=== PATIENT | male | born 1950 | race Hispanic/Latino ===

== ENCOUNTER 2019-01-24 18:39 | Emergency (ER) | payer MEDICARE ==
[2019-01-24 20:25] LABS: APPEARANCE,URINE Clear (CLEAR); BILIRUBIN,URINE Negative (NEGATIVE); COLOR,URINE Yellow (YELLOW); GLUCOSE, URINE (UA) >=1000 mg/dL (NEGATIVE); KETONES,URINE Negative (NEGATIVE); LEUKOCYTE ESTERASE ,URINE Negative (NEGATIVE); NITRATE,URINE Negative (NEGATIVE); OCCULT BLOOD,URINE Negative (NEGATIVE); PH,URINE 5.5 (5.0-8.0); PROTEIN,URINE Negative (NEGATIVE)
[2019-01-24 20:29] LABS: BASOPHILS % (AUTO) 0.7 % (0.0-5.0); EOSINOPHILS % (AUTO) 1.8 % (0.0-8.0); HEMATOCRIT 41.3 % (42-54); MEAN CORPUSCULAR VOLUME 93.9 fL (79-99); NEUTROPHILS % (AUTO) 49.5 % (40.0-77.0); PLATELET COUNT (AUTO) 201 K/uL (130-400); RED CELL DISTRIBUTION WIDTH 13.4 % (11.0-15.5); WHITE BLOOD COUNT (AUTO) 6.4 K/uL (4.8-10.8)
[2019-01-24 20:41] LABS: INR 0.91 (0.85-1.15); PARTIAL THROMBOPLASTIN TIME 24.1 SEC (26.3-35.5); PROTHROMBIN TIME 9.6 SEC (9.6-11.6)
[2019-01-24 20:45] LABS: POTASSIUM 4.3 mmol/L (3.5-5.1)
[2019-01-24 20:50] LABS: ALBUMIN 3.4 g/dL (3.5-5.0); BILIRUBIN,TOTAL 0.3 mg/dL (0.2-1.0)
== END 2019-01-24 21:31 | disposition home or self-care (01) ==
LOC: EDH 18:39
DX: S50.01XA Contusion of right elbow, initial encounter (principal); F07.81 Postconcussional syndrome; H11.31 Conjunctival hemorrhage, right eye; E11.65 Type 2 diabetes mellitus with hyperglycemia; I10 Essential (primary) hypertension; E78.5 Hyperlipidemia, unspecified; W01.198A Fall on same level from slipping, tripping and stumbling with subsequent striking against other object, initial encounter; Y93.89 Activity, other specified; Y92.89 Other specified places as the place of occurrence of the external cause; Y99.8 Other external cause status
CPT/HCPCS: 36415; 70450; 80053; 81003; 85025; 85610; 85730

== ENCOUNTER 2023-06-19 05:00 | Emergency (ER) | payer MEDICARE ==
[~2023-06-19] VITALS: Ht 167.6 cm; Wt 72.6 kg
[2023-06-19 05:34] LABS: BASOPHILS # (AUTO) 0.03 K/uL (0.00-0.20); BASOPHILS % (AUTO) 0.3 % (0.0-5.0); EOSINOPHILS # (AUTO) 0.01 K/uL (0.00-0.70); EOSINOPHILS % (AUTO) 0.1 % (0.0-8.0); HEMATOCRIT 48.1 % (42-54); IMMATURE GRANULOCYTE ABSOLUTE 0.04 K/uL (0-1); LYMPHOCYTES # (AUTO) 2.4 K/uL (1.0-4.8); LYMPHOCYTES % (AUTO) 21.7 % (21.0-51.0); MEAN CORPUSCULAR HEMOGLOBIN 31.7 pg (27.0-33.0); MEAN CORPUSCULAR HGB CONC 34.7 g/dL (32.0-36.0); MEAN CORPUSCULAR VOLUME 91.4 fL (79-99); MONOCYTES # (AUTO) 0.7 K/uL (0.1-1.0); NEUTROPHILS # (AUTO) 7.9 K/uL (1.8-7.7); NEUTROPHILS % (AUTO) 71.5 % (40.0-77.0); PLATELET COUNT (AUTO) 256 K/uL (130-400); RED BLOOD CELL COUNT(AUTO) 5.26 MIL/uL (4.50-6.20); RED CELL DISTRIBUTION WIDTH 13.3 % (11.0-15.5)
[2023-06-19 05:45] LABS: INR 3.11 (0.85-1.15); PROTHROMBIN TIME 33.5 SEC (9.6-11.6)
[2023-06-19 05:46] LABS: PARTIAL THROMBOPLASTIN TIME 41.6 SEC (26.3-35.5)
[2023-06-19] MEDS ORDERED: ONDANSETRON 4MG INJ IVP ONE (06:00)
[2023-06-19 06:29] LABS: ALBUMIN 3.7 g/dL (3.5-5.0); BILIRUBIN,TOTAL 0.4 mg/dL (0.2-1.0); CREATININE 0.8 mg/dL (0.5-1.5); POTASSIUM 3.8 mmol/L (3.5-5.1); TOTAL PROTEIN, SERUM 7.5 g/dL (6.0-8.3)
[2023-06-19] MEDS ORDERED: DICYCLOMINE HCL 10 MG/5 ML ML PO SCH (06:30)
[2023-06-19] MEDS ORDERED: LIDOCAINE HCL 2% VISCOUS 15 ML UDCUP PO ONE (06:30)
[2023-06-19] MEDS ORDERED: MAG/ALUM/SIMETH 30 ML UDCUP PO ONE (06:30)
[2023-06-19 10:38] VITALS: BP 151/67; PULSE 78; RESP 20; O2SAT 98
== END 2023-06-19 10:40 | disposition home or self-care (01) ==
LOC: EDH 05:00
DX: R06.02 Shortness of breath (principal); E11.9 Type 2 diabetes mellitus without complications; K21.9 Gastro-esophageal reflux disease without esophagitis; E78.00 Pure hypercholesterolemia, unspecified; I10 Essential (primary) hypertension
CPT/HCPCS: 99284; 96374; 71045; 84484 ×2; 80053; 85025; 85610; 85730; 36415; 93005 ×2; J2405

== ENCOUNTER 2024-04-25 12:38 | Emergency (ER) | payer MEDICARE ==
[~2024-04-25] VITALS: Ht 167.6 cm; Wt 77.1 kg
[2024-04-25 12:58] VITALS: BP 148/71; PULSE 74; RESP 16; TEMP 99; O2SAT 99
[2024-04-25 13:59] LABS: BASOPHILS # (AUTO) 0.06 K/uL (0.00-0.20); BASOPHILS % (AUTO) 0.7 % (0.0-5.0); EOSINOPHILS # (AUTO) 0.09 K/uL (0.00-0.70); EOSINOPHILS % (AUTO) 1.1 % (0.0-8.0); HEMATOCRIT 46.4 % (42-54); IMMATURE GRANULOCYTE ABSOLUTE 0.04 K/uL (0-1); LYMPHOCYTES # (AUTO) 2.3 K/uL (1.0-4.8); LYMPHOCYTES % (AUTO) 27.8 % (21.0-51.0); MEAN CORPUSCULAR HEMOGLOBIN 31.9 pg (27.0-33.0); MEAN CORPUSCULAR HGB CONC 34.7 g/dL (32.0-36.0); MEAN CORPUSCULAR VOLUME 91.9 fL (79-99); MONOCYTES # (AUTO) 0.6 K/uL (0.1-1.0); MONOCYTES % (AUTO) 7.2 % (3.0-13.0); NEUTROPHILS # (AUTO) 5.3 K/uL (1.8-7.7); NEUTROPHILS % (AUTO) 62.7 % (40.0-77.0); PLATELET COUNT (AUTO) 251 K/uL (130-400); RED BLOOD CELL COUNT(AUTO) 5.05 MIL/uL (4.50-6.20); RED CELL DISTRIBUTION WIDTH 12.3 % (11.0-15.5); WHITE BLOOD COUNT (AUTO) 8.4 K/uL (4.8-10.8)
[2024-04-25 14:31] LABS: CARBON DIOXIDE 27 mmol/L (21-32); CHLORIDE 100 mmol/L (101-111); CREATININE 0.9 mg/dL (0.5-1.3); GLOMERULAR FILTR. RATE CALC 90 mL/min (>90); GLUCOSE,RANDOM 297 mg/dL (70-105); SODIUM SERUM 134 mmol/L (136-145); UREA NITROGEN, BLOOD 13 mg/dL (7-18)
[2024-04-25 15:08] LABS: ERYTHROCYTE SEDIMENTATION RATE 0 MM/HR (0-20)
--- NOTE | 2024-04-25 15:17 | HMCIMG ---
TIBIA/FIBULA 2VWS RT REASON: ulceration to right lateral tib/fib r/o osteomyelitis TECHNIQUE: 2 views were obtained. FINDINGS: There is no evidence of fracture or dislocation. There is no joint effusion. The soft tissues appear unremarkable. There is no evidence of a radiopaque foreign body. IMPRESSION: No acute findings.
[2024-04-25] MEDS ORDERED: SULF1TAB42 PO (15:20)
--- NOTE | 2024-04-25 15:21 | ERN ---
General Chief Complaint: Wound Check Stated Complaint: RIGHT FOOT PAIN Time Seen by MD: 12:39 Time Seen by Midlevel: 12:39 Source: patient History of Present Illness Initial Comments Patient is a 74-year-old male with a past medical history of type 2 diabetes and hypertension presenting to the emergency department with an ulceration to the right lower leg. Patient states he was laceration hit her has been ongoing for the last six months. He specifically denies any fever, chills, or any other symptoms at this time. He is followed by Dr. Pandya however he was unaware that this ulceration is ongoing. Patient has no other complaints at this time. Allergies: Coded Allergies: No Known Drug Allergies (Unverified Allergy, Unknown, 01/24/19) Home Meds Active Scripts Sulfamethoxazole/Trimethoprim (Bactrim Ds Tablet) 800 Mg-160 Mg Tablet, 1 TAB PO BID for 7 Days, #14 TAB 0 Refills Prov:GURINDER MADDEN 04/25/24 Past Medical History Past Medical History: Diabetes-Type II, GERD, High Cholesterol, Hypertension Past Surgical History: Other Surgical History Other: NASAL FX Family History Family History: CAD, DM, HTN Social History Social History: Smokers, ETOH ROS Dictation CONSTITUTIONAL: Negative except for HPI HEAD/FACE: Negative except for HPI EENT: Negative except for HPI RESPIRATORY: Negative except for HPI GASTROINTESTINAL/ABDOMINAL: Negative except for HPI GENITOURINARY: Negative except for HPI MUSCULOSKELETAL: Negative except for HPI INTEGUMENTARY: Negative except for HPI NEUROLOGICAL/PSYCH: Negative except for HPI HEMATOLOGIC/LYMPHATIC: Negative except for HPI All Systems Negative, Except as noted above. 13 point review of systems assessed and all negative except for above. Physical Exam Physical Exam Dictation Vital Signs reviewed General Appearance: Alert, oriented x 3, no acute distress, well developed, nourished. Head and Face: non-traumatic. Eyes: PERRL, pink conjunctivas, eyelid no trauma, anterior chamber with arcus senilis. Ears: Pinnas intact and no signs of trauma or erythema ear canals clear and no discharge TM no erythema Nose: No discharge, no bleeding. Oropharynx: Mouth normal, tongue pink, pharynx clear,no erythema, tonsils no exudates, no abscesses noted, mucous membrane moist Neck: Supple, non-tender, no thyromegaly, no masses, no JVD, no bruits Breast:Deferred Chest:No tenderness, no crepitus, no paradoxical movement, no retractions Lungs:Clear, well-ventilated, symmetric, no rales, no wheezing, no rhonchi, no stridor, good breath sounds bilaterally Heart: Regular rate, regular rhythm, no murmur, no gallops Vascular: no peripheral edema, Abdomen: Soft, positive bowel sounds, nondistended, no guarding, nontender, no rebound, no masses no hepatomegaly, no splenomegaly, no Hayes's sign, no hernias. Rectal: Deferred Genital: Deferred Neurological: Normal speech, motor function intact, sensory function intact Musculoskeletal: Neck nontender, full range of motion, back nontender, full range of motion, Extremities: nontender, full range of motion Skin: There is a shallow ulceration to the lateral aspect of the right lower leg, there is no surrounding erythema or purulent drainage, there was no drainable abscess at this time Lymphatic: Deferred Results Laboratory and Microbiology Lab and Micro Result Laboratory Tests Test 04/25/24 13:52 White Blood Count 8.4 K/uL (4.8-10.8) Red Blood Count 5.05 MIL/uL (4.50-6.20) Hemoglobin 16.1 g/dL (14.0-18.0) Hematocrit 46.4 % (42-54) Mean Corpuscular Volume 91.9 fL (79-99) Mean Corpuscular Hemoglobin 31.9 pg (27.0-33.0) Mean Corpuscular Hemoglobin Concent 34.7 g/dL (32.0-36.0) Red Cell Distribution Width 12.3 % (11.0-15.5) Platelet Count 251 K/uL (130-400) Mean Platelet Volume 10.8 fL (7.5-10.5) H Immature Granulocyte % (Auto) 0.5 % (0-1) Neutrophils (%) (Auto) 62.7 % (40.0-77.0) Lymphocytes (%) (Auto) 27.8 % (21.0-51.0) Monocytes (%) (Auto) 7.2 % (3.0-13.0) Eosinophils (%) (Auto) 1.1 % (0.0-8.0) Basophils (%) (Auto) 0.7 % (0.0-5.0) Neutrophils # (Auto) 5.3 K/uL (1.8-7.7) Lymphocytes # (Auto) 2.3 K/uL (1.0-4.8) Monocytes # (Auto) 0.6 K/uL (0.1-1.0) Eosinophils # (Auto) 0.09 K/uL (0.00-0.70) Basophils # (Auto) 0.06 K/uL (0.00-0.20) Absolute Immature Granulocyte (auto 0.04 K/uL (0-1) Nucleated Red Blood Cells 0.0 % (0.0-0.19) Erythrocyte Sedimentation Rate 0 MM/HR (0-20) Sodium Level 134 mmol/L (136-145) L Potassium Level 4.0 mmol/L (3.5-5.1) Chloride Level 100 mmol/L (101-111) L Carbon Dioxide Level 27 mmol/L (21-32) Blood Urea Nitrogen 13 mg/dL (7-18) Creatinine 0.9 mg/dL (0.5-1.3) Glomerular Filtration Rate Calc 90 mL/min (>90) Random Glucose 297 mg/dL (70-105) H Lactic Acid Level 3.3 mmol/L (0.8-2.5) H Total Calcium 8.9 mg/dL (8.5-10.1) C-Reactive Protein, Quantitative < 0.50 mg/L (0.5-3.0) L Procalcitonin < 0.05 ng/mL (0.05-0.5) L Labs Reviewed?: Yes MDM MDM: Patient is a 74-year-old male with a past medical history of type 2 diabetes and hypertension presenting to the emergency department with an ulceration to the right lower leg. Patient states he was laceration hit her has been ongoing for the last six months. He specifically denies any fever, chills, or any other symptoms at this time. He is followed by Dr. Pandya however he was unaware that this ulceration is ongoing. Patient has no other complaints at this time. On physical examination there is a shallow ulceration to the lateral aspect of the right lower leg, there is no surrounding erythema or purulent drainage, there was no drainable abscess at this time. Initial vital signs are stable. Patient is afebrile and nontoxic appearing. His CBC does not show any leukocytosis. His white blood cell count is normal at 8.4. His sed rate is 0. His chemistries are stable his lactic acid is slightly elevated at 3.3 however patient was given 1 L of IV fluids. His CRP is negative. His procalcitonin is negative. His x-ray does not show any evidence of osteomyelitis. This will be treated outpatient with antibiotics. Patient was given 1 g of Rocephin IV along with 1 L of IV fluids. He was sent home with a prescription for Bactrim. Differential diagnosis: Cellulitis, osteomyelitis, ulceration, PVD There are no social concerns with this patient. Prescription drug management Prescriptions will include: Bactrim Medical management and examination interpretation discussions were had by me with other qualified healthcare professionals as indicated for the patient's care. ED Course Orders Procedure Category Date Status Time Cbc With Differential LAB 04/25/24 Complete 13:36 Basic Metabolic Panel LAB 04/25/24 Complete 13:36 Lactic Acid LAB 04/25/24 Complete 13:36 Procalcitonin LAB 04/25/24 Complete 13:36 Erythrocyte LAB 04/25/24 Complete Sedimentation Rate 13:36 Crp Quantitative LAB 04/25/24 Complete 13:36 Tibia/Fibula 2vws Rt RAD 04/25/24 Resulted 13:36 0.9%Nacl 1000ml (Ns PHA 04/25/24 Complete 1000ml) 15:30 Vancomycin Protocol PHA 04/25/24 Complete (Vancomycin Protocol 15:30 Cefepime Hcl 1 Gm PHA 04/25/24 Complete Vial (Maxipime 1 Gm Vi 15:30 Ceftriaxone 1g Vial PHA 04/25/24 Complete (Rocephine 1g Inj) 15:30 Current Medications Medications (Trade) Dose Ordered Sig/Dorinda Route PRN Reason Start Time Stop Time Status Last Admin Dose Admin Cefepime HCl (MAXipime 1 GM vial) 1 gm Q12H IVPB 04/25/24 15:30 04/25/24 15:20 DC Ceftriaxone Sodium (ROCEphine 1G INJ) 1 gm ONCE ONCE IVPB 04/25/24 15:30 04/25/24 15:31 DC 04/25/24 15:57 Sodium Chloride 1,000 ml @ 0 mls/hr ONCE ONCE IV 04/25/24 15:30 04/25/24 15:31 DC 04/25/24 15:58 Vancomycin HCl (Vancomycin Protocol) 1 each AD IV 04/25/24 15:30 04/25/24 15:20 DC Vital Signs Date Time Temp Pulse Resp B/P (MAP) Pulse Ox O2 Delivery O2 Flow Rate FiO2 04/25/24 12:58 99.0 74 16 148/71 99 Room Air 0 04/25/24 12:58 99.0 74 16 148/71 99 Room Air* 0 21 DX & DISP Disposition: Discharge Departure Impression: Primary Impression: Ulcer of right lower leg Condition: Stable Scripts Sulfamethoxazole/Trimethoprim (Bactrim Ds Tablet) 800 Mg-160 Mg Tablet 1 TAB PO BID for 7 Days, #14 TAB 0 Refills Prov: GURINDER MADDEN 04/25/24 Referrals: ISABEL VENEGAS PA-C (PCP) KEREN PANDYA DPCarlotta Time of Disposition: 15:20 I have reviewed the case, and I agree with, Diagnosis and Plan I performed the substantive portion of the visit. I have reviewed and personally made and approve the management plan that is documented in the note by myself or the GEO. I acknowledge for responsibility for the patient's management plan. GURINDER MADDEN Apr 25, 2024 15:21 NANDA QUINONEZ DO Apr 27, 2024 11:34
[2024-04-25] MEDS ORDERED: ceFEPime HCL 1 GM VIAL IVPB SCH (15:30)
[2024-04-25] MEDS ORDERED: VANCOMYCIN PROTOCOL PER PHARMACY IV SCH (15:30)
[2024-04-25] MEDS: cefTRIAXone 1G VIAL IVPB ONE (15:57)
[2024-04-25] MEDS: 0.9%NACL 1000ML 1,000 ML IV ONE (15:58)
== END 2024-04-25 16:38 | disposition home or self-care (01) ==
LOC: EDH 12:38
DX: E11.622 Type 2 diabetes mellitus with other skin ulcer (principal); L97.819 Non-pressure chronic ulcer of other part of right lower leg with unspecified severity; E11.9 Type 2 diabetes mellitus without complications; E78.00 Pure hypercholesterolemia, unspecified; F17.200 Nicotine dependence, unspecified, uncomplicated; I10 Essential (primary) hypertension; K21.9 Gastro-esophageal reflux disease without esophagitis; Z98.890 Other specified postprocedural states
CPT/HCPCS: 99284; 96365; 80048; 85025; 85651; 83605; 86140; 36415; 73590; 84145; J7030; J0696

== ENCOUNTER 2024-10-18 15:51 | Inpatient (IN) | payer MEDICARE ==
[~2024-10-18] VITALS: Ht 167.6 cm; Wt 83.1 kg
[~2024-10-18 15:51] MED LIST: SULF1TAB42 PO
[2024-10-18 16:26] LABS: BASOPHILS # (AUTO) 0.06 K/uL (0.00-0.20); BASOPHILS % (AUTO) 0.6 % (0.0-5.0); EOSINOPHILS % (AUTO) 2.1 % (0.0-8.0); HEMATOCRIT 41.6 % (42-54); IMMATURE GRANULOCYTE ABSOLUTE 0.02 K/uL (0-1); LYMPHOCYTES # (AUTO) 2.3 K/uL (1.0-4.8); LYMPHOCYTES % (AUTO) 23.6 % (21.0-51.0); MEAN CORPUSCULAR HEMOGLOBIN 30.9 pg (27.0-33.0); MEAN CORPUSCULAR HGB CONC 32.9 g/dL (32.0-36.0); MEAN CORPUSCULAR VOLUME 93.9 fL (79-99); MONOCYTES # (AUTO) 0.8 K/uL (0.1-1.0); MONOCYTES % (AUTO) 7.8 % (3.0-13.0); NEUTROPHILS # (AUTO) 6.3 K/uL (1.8-7.7); NEUTROPHILS % (AUTO) 65.7 % (40.0-77.0); PLATELET COUNT (AUTO) 284 K/uL (130-400); RED BLOOD CELL COUNT(AUTO) 4.43 MIL/uL (4.50-6.20); RED CELL DISTRIBUTION WIDTH 12.6 % (11.0-15.5); WHITE BLOOD COUNT (AUTO) 9.6 K/uL (4.8-10.8)
[2024-10-18 16:39] LABS: CREATININE 1.1 mg/dL (0.5-1.3); POTASSIUM 4.2 mmol/L (3.5-5.1)
--- NOTE | 2024-10-18 16:40 | HMCIMG ---
TIBIA/FIBULA 2VWS LT HISTORY: Wound COMPARISON: None TECHNIQUE: 2 images of the left tibia and fibula were obtained. FINDINGS: There is no acute displaced fracture or dislocation. There is soft tissue swelling. Vascular calcifications are seen. Small calcaneal spur is seen. Evaluation for osteomyelitis is limited with radiographs. Degenerative changes are seen. IMPRESSION: 1. Findings as described above.
[2024-10-18 17:34] LABS: ERYTHROCYTE SEDIMENTATION RATE 17 MM/HR (0-20)
--- NOTE | 2024-10-18 17:56 | ERN ---
ED Note History of Present Illness Stated Complaint: WOUND LT LOER EXT Chief Complaint: Wound Check Time Seen by MD: 15:53 Time Seen by Midlevel: 15:58 Dictation: 74-year-old male with a history of hypertension and diabetes coming in with complaints of pain to the ulcer that he has not in his left calf. Patient states he has had this ulcer for one year has not ever taken antibiotics. States he also has a history of PAD and sees Dr. Greyson Will. Allergies: Coded Allergies: No Known Drug Allergies (Unverified Allergy, Unknown, 01/24/19) Home Meds Active Scripts Sulfamethoxazole/Trimethoprim (Bactrim Ds Tablet) 800 Mg-160 Mg Tablet, 1 TAB PO BID for 7 Days, #14 TAB 0 Refills Prov:GURINDER MADDEN 04/25/24 Past Medical History Past Medical History: Diabetes-Type II, GERD, High Cholesterol, Hypertension Additional Past Medical Hx: PVD Surgical History: Other Surgical History Other: BILAT LOWER EXT ANGIOGRAMS Family History: CAD, DM, HTN Social History: Smokers, ETOH Review of System Dictation Constitutional: Negative for fever,chills, and weight loss Eyes: Negative for injury, pain,redness, and discharge ENT: Negative for injury,pain or swelling Cardiovascular: Negative for chest pain, palpitations, and edema Respiratory: Negative for shortness of breath, cough, and wheezing, Abdomen/GI: Negative for abdominal pain, nausea, vomiting, diarrhea, and constipation Back: Negative for injury and pain : Negative for injury, bleeding and discharge MS/Extremity: Negative for injury and deformity Skin: Ulcer to the left calf Neuro: Negative for headache, weakness, numbness, tingling, and seizure Psych: Negative for suicide ideation, homicidal ideation, and hallucinations Review of Systems: was completed Initial Vital Sign VS Vital Signs Date Time Temp Pulse Resp B/P (MAP) Pulse Ox O2 Delivery O2 Flow Rate FiO2 10/18/24 15:52 97.9 78 18 111/58 98 Room Air 0 10/18/24 19:00 21 Physical Exam Dictation General: awake, alert, NAD Head/Face: Normocephalic, atraumatic Eyes: PERRL, EOMI, vision at baseline ENT: oral cavity clear, TMs clear, no signs of infection Neck: Trachea midline, supple, no nuchal rigidity Cardiovascular: RRR, normal S1/S2, No MRGs, no JVD Respiratory: CTAB, no respiratory distress, No rales or wheezes Abdomen: Soft, non-tender, non-distended, normal bowel sounds, no guarding or rebound. Skin: There is a diabetic ulcer to the left calf with irregular edges clear and pus-like discharge, some necrotic tissue. MS/Extremity: Pulses equal, no cyanosis, neurovascular intact, FROM Neuro: COAx4, GCS 15, strength 5/5, CN 2-12 intact, normal cerebellar exam, no rmal gait, Psych: Normal behavior, mood, and affect normal Results (Laboratory/Radiology) Laboratory/Radiology Laboratory Tests Test 10/18/24 16:18 White Blood Count 9.6 K/uL (4.8-10.8) Red Blood Count 4.43 MIL/uL (4.50-6.20) L Hemoglobin 13.7 g/dL (14.0-18.0) L Hematocrit 41.6 % (42-54) L Mean Corpuscular Volume 93.9 fL (79-99) Mean Corpuscular Hemoglobin 30.9 pg (27.0-33.0) Mean Corpuscular Hemoglobin Concent 32.9 g/dL (32.0-36.0) Red Cell Distribution Width 12.6 % (11.0-15.5) Platelet Count 284 K/uL (130-400) Mean Platelet Volume 10.4 fL (7.5-10.5) Immature Granulocyte % (Auto) 0.2 % (0-1) Neutrophils (%) (Auto) 65.7 % (40.0-77.0) Lymphocytes (%) (Auto) 23.6 % (21.0-51.0) Monocytes (%) (Auto) 7.8 % (3.0-13.0) Eosinophils (%) (Auto) 2.1 % (0.0-8.0) Basophils (%) (Auto) 0.6 % (0.0-5.0) Neutrophils # (Auto) 6.3 K/uL (1.8-7.7) Lymphocytes # (Auto) 2.3 K/uL (1.0-4.8) Monocytes # (Auto) 0.8 K/uL (0.1-1.0) Eosinophils # (Auto) 0.20 K/uL (0.00-0.70) Basophils # (Auto) 0.06 K/uL (0.00-0.20) Absolute Immature Granulocyte (auto 0.02 K/uL (0-1) Nucleated Red Blood Cells 0.0 % (0.0-0.19) Erythrocyte Sedimentation Rate 17 MM/HR (0-20) Sodium Level 139 mmol/L (136-145) Potassium Level 4.2 mmol/L (3.5-5.1) Chloride Level 103 mmol/L (101-111) Carbon Dioxide Level 29 mmol/L (21-32) Blood Urea Nitrogen 18 mg/dL (7-18) Creatinine 1.1 mg/dL (0.5-1.3) Glomerular Filtration Rate Calc 70 mL/min (>90) Random Glucose 281 mg/dL (70-105) H Lactic Acid Level 1.3 mmol/L (0.8-2.5) Total Calcium 9.1 mg/dL (8.5-10.1) Procalcitonin < 0.05 ng/mL (0.05-0.5) L Labs Reviewed?: Yes X-RAY Comment: [address] [id number] IMAGING REPORT Signed PATIENT: GENIE GONZALES MR#: [id number] : 1950 SEX: M AGE: 74 LOCATION: [facility] ORDER 1611 STATUS: REG REPORT#: [id number] SERVICE 1609 REASON: wound ORDERING PHYSICIAN: BONITA FIGUEROA NP PROCEDURE: TIBFIB LT - TIBIA/FIBULA 2VWS LT TIBIA/FIBULA 2VWS LT HISTORY: Wound COMPARISON: None TECHNIQUE: 2 images of the left tibia and fibula were obtained. FINDINGS: There is no acute displaced fracture or dislocation. There is soft tissue swelling. Vascular calcifications are seen. Small calcaneal spur is seen. Evaluation for osteomyelitis is limited with radiographs. Degenerative changes are seen. IMPRESSION: 1. Findings as described above. DICTATED BY: PRAKASH MACK MD DATE: 10/18/24 1637 ELECTRONICALLY SIGNED BY: PRAKASH MACK MD DATE: 10/18/24 1640 ED Course ED Course Orders Procedure Category Date Status Time Cbc With Differential LAB 10/18/24 Complete 16:09 Basic Metabolic Panel LAB 10/18/24 Complete 16:09 Blood Cult RADHA 10/18/24 In Process 16:09 Lactic Acid LAB 10/18/24 Complete 16:09 Procalcitonin LAB 10/18/24 Complete 16:09 Erythrocyte LAB 10/18/24 Complete Sedimentation Rate 16:09 Tibia/Fibula 2vws Lt RAD 10/18/24 Resulted 16:09 Vital Signs Date Time Temp Pulse Resp B/P (MAP) Pulse Ox O2 Delivery O2 Flow Rate FiO2 10/18/24 19:00 98.2 72 18 161/75 98 Room Air* 0 21 10/18/24 15:52 97.9 78 18 111/58 98 Room Air 0 Medical Decision Making MDM MDM: 4-year-old male with a history of hypertension and diabetes coming in with complaints of pain to the ulcer that he has not in his left calf. Patient states he has had this ulcer for one year has not ever taken antibiotics. States he also has a history of PAD and sees Dr. Greyson Will.White count shows no leukocytosis, mild normocytic anemia, hemoglobin is 13 hematocrit is 41. No thrombocytopenia. Normal ESR, procalcitonin, lactic levels. CBC shows hyperglycemia of 281. Normal kidney function. Patient complaining of severe pain to the left calf, patient will be admitted for nonhealing chronic calf ulcer this patient could benefit from IV antibiotics and or wound care.Spoke to Shari [employer]URITY SERVICES SPECIALIST for hospitalist team, ok to admit. Differential diagnosis: Nonhealing ulcer, sepsis, osteomyelitis Rationale: Tests considered and ordered secondary to shared decision making include: labs, ECG and radiology Previous outside records reviewed: Old ER visits. Risk of complication and/or morbidity or mortality of patient management: None Medications-Per medication reconciliation Need for hospitalization: Patient does meet criteria for hospitalization. Need for emergency major/minor surgery: No There are no social concerns with this patient. Prescription drug management Prescriptions will include symptomatic care Patient's prior external medical records from other ER visits were reviewed by me as indicated. Prior testing and results from previous visits were reviewed. Prior tests were taken into account with medical decision making and resource utilization, independent historian/historians were used to obtain complete medical history. I independently interpreted the test that were performed, results were reviewed by me and considered findings on radiology if ordered. Medical management and examination interpretation discussions were had by me with other qualified healthcare professionals as indicated for the patient's care. DX & DISP Disposition: Inpatient Decision to Admit Date: October 18, 2024 Decision to Admit Time: 19:30 Departure Impression: Primary Impression: Ulcer of right lower leg Condition: Stable Referrals: ISABEL VENEGAS PA-C (PCP) Time of Disposition: 19:30 I have reviewed the case, and I agree with, Diagnosis and Plan BONITA FIGUEROA NP October 18, 2024 17:55
[2024-10-18] MEDS ORDERED: MAGNESIUM 2GM PREMIX 50ML 50 ML IV PRN (20:00)
[2024-10-18] MEDS ORDERED: PoTASSium chl 10% ELIXIR 20MEQ 20 MEQ/15 ML UDCUP PO PRN (20:00)
[2024-10-18] MEDS ORDERED: VANCOMYCIN 1G/250ML KIT 250 ML IV SCH (20:00)
[2024-10-18] MEDS ORDERED: GLUCAGON 1MG KIT 1 MG ML IM PRN (20:00)
[2024-10-18] MEDS ORDERED: PoTASSium chloRIDE 20MEQ/100ML 100 ML IV PRN (20:00)
[2024-10-18] MEDS ORDERED: DEXTROSE 50%-WATER 50 ML DISP.SYRIN IV PRN (20:00)
[2024-10-18] MEDS ORDERED: acetaMINOPHEN 325 MG TAB PO PRN (20:00)
[2024-10-18] MEDS: ondanSETRON 4MG INJ IVP STA (20:04)
[2024-10-18] MEDS: morPHINE 2 MG SYG IVP STA (20:04)
[2024-10-18] MEDS: ZOSYN 3.375GM +NS 50ML IV STA (20:04)
[2024-10-18] MEDS: FAMOTIDINE 20MG TAB PO SCH (20:20)
--- NOTE | 2024-10-18 20:25 | HP ---
[facility] Date of Service: October 18, 2024 Time of Service: 20:01 PCP: Julia SAUCEDO HISTORY OF PRESENT ILLNESS: This is a 74 year old male with past medical history of PVD with PCI ,diabetes,hypertension ,GERD and hyperlipidemia who presents to the ED for complaints of severe pain to left leg ulcer and swelling and he noticed bloody drainage this afternoon so he decided to come to the ED for further evaluation.Patient reports that this wound started since November 2023 and is doing medihoney dressing everyday but patient has not taken antibiotic.Patient states he had a stent placed by on both lower legs on 08/14/2024. Seen and examined patient in the Ed awake,alert and coherent appears uncomfortable complaints of left leg pain 8/10 pain level.Patient denies,fever,chills,nausea,vomiting,chest pain,palpitation and shortness of breath. Vital signs temperature 98.2 heart rate 72 blood pressure 161/75 saturation 98% on room air. Labs: Hemoglobin 13, hematocrit 41, platelet count 284. Glucose 281 calcitonin less than 0 point 0 five. X-ray of the left leg result revealed there is no acute displaced fracture or dislocation. There is soft tissue swelling. Vascular calcifications are seen. Small calcaneal spur is seen. Evaluation for osteomyelitis is limited with radiographs. Degenerative changes are seen. While in the ER patient received Zosyn IV, morphine 2 mg IV and Zofran 4 mg IV. We will admit patient for further medical management. REVIEW OF SYSTEMS CONSTITUTIONAL: Denies fevers, chills, or night sweats. No unintentional weight loss reported. NEUROLOGICAL: Denies headache, amaurosis fugax, motor weakness, sensory deficit, vertigo/spinning sensation, gait abnormalities, or tremors. ENT: No hearing loss, otalgia, otorrhea, rhinitis, rhinorrhea, hoarseness, or so re throat. CARDIOVASCULAR: Denies any exertional angina, dyspnea on exertion, orthopnea, paroxysmal nocturnal dyspnea, palpitations, life-threatening arrhythmias, claudication. PULMONARY: Denies any shortness of breath, cough, phlegm/sputum, hemoptysis, pleuritic chest pain. SLEEP: Denies morning headaches, daytime somnolence or napping. Denies difficulty falling asleep, staying asleep, waking from sleep. Denies knowledge of snoring. GASTROINTESTINAL: Denies any type of dysphagia to either liquids or solids. Denies nausea, vomiting, pyrosis, early satiety, abdominal pain, diarrhea, constipation, or changes in stool consistency or caliber. Denies coffee-ground emesis, hematemesis, hematochezia, or melanotic stools. GENITOURINARY: Denies frequency, urgency, nocturia, hematuria or incontinence (Storage/Irritative symptoms.) Low urinary stream, straining to void, urinary intermittency or hesitancy, splitting of the voiding stream, terminal dribbling. ENDOCRINOLOGIC: Denies polyuria, polydipsia, polyphagia or heat/cold intolerances. HEMATOLOGIC: Denies thrombophilia/previous clots, or coagulopathy/bleeding disorders. ONCOLOGIC: Denies personal history of malignancy. DERMATOLOGIC: Denies rashes or pruritus. PSYCHIATRIC: Denies any suicidal or homicidal ideation. Denies hallucinations. PAST MEDICAL HISTORY: [ PVD, diabetes, hypertension, hyperlipidemia ] PAST SURGICAL HISTORY: [ Stent to bilateral lower extremities ] PAST SOCIAL HISTORY: [ Patient lives with . Patient denies alcohol tobacco and recreational drug use ] FAMILY HISTORY: [ Noncontributory ] Coded Allergies: No Known Drug Allergies (Unverified Allergy, Unknown, 01/24/19) PHYSICAL EXAM GENERAL APPEARANCE: The patient is awake, alert, and oriented, in no acute cardiopulmonary distress. NEUROLOGICAL: Cranial nerves II-XII grossly intact. Motor is 5/5 in bilateral upper and lower extremities proximal to distal. No sensory deficits. HEENT: Face is symmetric. Pupils are equal and reactive. Extraocular movements are intact. NECK: Supple. No JVD. No thyromegaly. No submental, submandibular, pre-/postauricular, occipital or supraclavicular lymphadenopathy. CHEST: Normal chest expansion. No Telemetry. LUNGS: Absence of any rales, rhonchi or any wheezing. CARDIOVASCULAR: Regular. S1 and S2 normal. No appreciable rubs, murmurs or gallops. ABDOMEN: Soft, nontender, and nondistended. There is no rebound, voluntary guarding, or rigidity. : Deferred. No Bonilla. EXTREMITIES: Non-edematous and not cyanotic. No clubbing. Good capillary refill. SKIN: Non healing wound ulcer to left leg Vital Sign (Last 24 Hours) 10/18/24 19:00 Temp 98.2 Pulse 72 Resp 18 B/P (MAP) 161/75 Pulse Ox 98 O2 Delivery Room Air* O2 Flow Rate 0 FiO2 21 LABS: Laboratory: Test 10/18/24 16:18 Range/Units White Blood Count 9.6 4.8-10.8 K/uL Red Blood Count 4.43 L 4.50-6.20 MIL/uL Hemoglobin 13.7 L 14.0-18.0 g/dL Hematocrit 41.6 L 42-54 % Mean Corpuscular Volume 93.9 79-99 fL Mean Corpuscular Hemoglobin 30.9 27.0-33.0 pg Mean Corpuscular Hemoglobin Concent 32.9 32.0-36.0 g/dL Red Cell Distribution Width 12.6 11.0-15.5 % Platelet Count 284 130-400 K/uL Mean Platelet Volume 10.4 7.5-10.5 fL Immature Granulocyte % (Auto) 0.2 0-1 % Neutrophils (%) (Auto) 65.7 40.0-77.0 % Lymphocytes (%) (Auto) 23.6 21.0-51.0 % Monocytes (%) (Auto) 7.8 3.0-13.0 % Eosinophils (%) (Auto) 2.1 0.0-8.0 % Basophils (%) (Auto) 0.6 0.0-5.0 % Neutrophils # (Auto) 6.3 1.8-7.7 K/uL Lymphocytes # (Auto) 2.3 1.0-4.8 K/uL Monocytes # (Auto) 0.8 0.1-1.0 K/uL Eosinophils # (Auto) 0.20 0.00-0.70 K/uL Basophils # (Auto) 0.06 0.00-0.20 K/uL Absolute Immature Granulocyte (auto 0.02 0-1 K/uL Nucleated Red Blood Cells 0.0 0.0-0.19 % Erythrocyte Sedimentation Rate 17 0-20 MM/HR Sodium Level 139 136-145 mmol/L Potassium Level 4.2 3.5-5.1 mmol/L Chloride Level 103 101-111 mmol/L Carbon Dioxide Level 29 21-32 mmol/L Blood Urea Nitrogen 18 7-18 mg/dL Creatinine 1.1 0.5-1.3 mg/dL Glomerular Filtration Rate Calc 70 >90 mL/min Random Glucose 281 H 70-105 mg/dL Lactic Acid Level 1.3 0.8-2.5 mmol/L Total Calcium 9.1 8.5-10.1 mg/dL Procalcitonin < 0.05 L 0.05-0.5 ng/mL Current Medications Medications (Trade) Dose Ordered Sig/Dorinda Route PRN Reason Start Time Stop Time Status Last Admin Dose Admin Morphine Sulfate (morPHINE 2MG SYG) 2 mg ONCE STAT IVP 10/18/24 19:33 10/18/24 19:38 DC Ondansetron HCl (zoFRAN 4MG INJ) 4 mg ONCE STAT IVP 10/18/24 19:33 10/18/24 19:38 DC Piperacillin Sod/ Tazobactam Sod (Zosyn 3.375gm+NS 50ml) 3.375 gm ONCE STAT IV 10/18/24 19:31 10/18/24 19:38 DC DIAGNOSTICS / RADIOLOGY: [ ] ASSESSMENT: 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 bid for GI prophylaxis We will replace electrolytes as needed per protocol We will start on insulin sliding scale AC & HS with hypoglycemia protocol We will add prn medication for fever,pain,cough ,nausea and vomiting We will reconcile home meds once medlist available We will obtain arterial Doppler to left lower extremity We will request venous Doppler to left lower extremity We will seek wound care management consultation We will seek Infectious Disease consultation for antibiotic stewardship We will request labs in am Further orders to follow depending on above results Case discussed with attending physician and came up with above treatment and plan of care. ADVANCED CARE PLANNING 1. Which of the following were discussed? Hospice Care - No Therapeutic options - Yes Advance Directives - No Other discussions - 2. Discussed with who? Patient and 3. Voluntary nature of this service was explained to the patient? Yes 4. Amount of time spent - _22 5. Reviewed by Physician? (if this service was performed by NPP) Yes Patient seen and examined by me. Agree with note by [facility] SPECIALIST SEE ADDITIONAL ORDERS PER CHART DISCUSSED WITH NURSING STAFF DIANA BLACK BOILER ERECTOR October 18, 2024 20:25
[2024-10-18] MEDS ORDERED: VANCOMYCIN PROTOCOL PER PHARMACY IV SCH (20:30)
--- NOTE | 2024-10-18 20:54 | HMCIMG ---
US VENOUS DOPPLER UNILATERAL HISTORY: Pain and swelling COMPARISON: None TECHNIQUE: Left lower extremity venous Doppler ultrasound study was performed. FINDINGS: The left common femoral, femoral, popliteal, and posterior tibial veins are visualized. Normal flow with augmentation and compressibilities are demonstrated. Left greater saphenous vein is patent. IMPRESSION: 1. No evidence of deep venous thrombosis is seen.
[2024-10-18] MEDS: VANCOMYCIN 2GM/500 ML BAG 500 ML IV ONE (21:33)
[2024-10-18] MEDS: INSULIN humuLIN R 100 UNIT/ML 3ML SQ SCH (21:37)
[2024-10-18 22:10] VITALS: BP 139/59; PULSE 74; RESP 20; TEMP 97.8
[2024-10-18] MEDS ORDERED: INSLAN SQ (23:12)
[2024-10-18] MEDS ORDERED: MVIT PO (23:12)
[2024-10-18] MEDS ORDERED: LOSA25TA41 PO (23:12)
[2024-10-18] MEDS ORDERED: HYDR12.54 PO (23:12)
[2024-10-18] MEDS ORDERED: CLOP75TA32 PO (23:12)
[2024-10-18] MEDS ORDERED: PRAV20TA4 PO (23:12)
[2024-10-18] MEDS ORDERED: DAPA10TA PO (23:12)
[2024-10-19] VITALS (7 sets, daily range): BP systolic 115–137; BP diastolic 59–70; PULSE 72–78; RESP 17–20; TEMP 97.8–98.2; O2SAT 96–97
[2024-10-19] MEDS: ondanSETRON 4MG INJ IV PRN (00:56)
[2024-10-19] MEDS: morPHINE 2 MG SYG IV PRN (00:57)
[2024-10-19] MEDS: ZOSYN 3.375GM+NS 50ML 50 ML IV SCH (04:09)
[2024-10-19] MEDS ORDERED: TYL2 PO (04:51)
[2024-10-19 04:58] LABS: BASOPHILS # (AUTO) 0.05 K/uL (0.00-0.20); BASOPHILS % (AUTO) 0.6 % (0.0-5.0); EOSINOPHILS # (AUTO) 0.22 K/uL (0.00-0.70); EOSINOPHILS % (AUTO) 2.5 % (0.0-8.0); HEMATOCRIT 38.1 % (42-54); IMMATURE GRANULOCYTE ABSOLUTE 0.03 K/uL (0-1); LYMPHOCYTES # (AUTO) 2.2 K/uL (1.0-4.8); MEAN CORPUSCULAR HEMOGLOBIN 31.3 pg (27.0-33.0); MEAN CORPUSCULAR HGB CONC 33.3 g/dL (32.0-36.0); MEAN CORPUSCULAR VOLUME 93.8 fL (79-99); MONOCYTES # (AUTO) 0.8 K/uL (0.1-1.0); MONOCYTES % (AUTO) 9.3 % (3.0-13.0); NEUTROPHILS # (AUTO) 5.5 K/uL (1.8-7.7); NEUTROPHILS % (AUTO) 62.3 % (40.0-77.0); PLATELET COUNT (AUTO) 273 K/uL (130-400); RED BLOOD CELL COUNT(AUTO) 4.06 MIL/uL (4.50-6.20); RED CELL DISTRIBUTION WIDTH 12.5 % (11.0-15.5); WHITE BLOOD COUNT (AUTO) 8.8 K/uL (4.8-10.8)
[2024-10-19 05:26] LABS: ALBUMIN 2.9 g/dL (3.5-5.0); BILIRUBIN,TOTAL 0.4 mg/dL (0.2-1.0); CREATININE 0.8 mg/dL (0.5-1.3); MAGNESIUM 2.1 mg/dL (1.80-2.40); POTASSIUM 3.9 mmol/L (3.5-5.1); TOTAL PROTEIN, SERUM 6.1 g/dL (6.0-8.3)
[2024-10-19 05:35] LABS: HEMOGLOBIN A1C 10.3 % (4.0-6.0)
[2024-10-19] MEDS: VANCOMYCIN 750MG VIAL IVPB SCH (08:26)
--- NOTE | 2024-10-19 09:58 | HMCIMG ---
US ARTERIAL UNILA LOW EXT DUPL HISTORY: Pain and swelling COMPARISON: None TECHNIQUE: Left lower extremity arterial Doppler ultrasound study was performed. FINDINGS: Abnormal monophasic arterial waveforms are seen in the left distal popliteal, left posterior tibial, anterior tibial and dorsalis pedal arteries with hyperemic flow. Normal triphasic and biphasic arterial waveforms are noted in the left common femoral, deep femoral, superficial femoral, and popliteal arteries. On the left, the peak systolic velocity of the common femoral artery is 123 cm/s, the proximal femoral artery is 164 cm/s, the mid femoral artery is 95 cm/s, the distal femoral artery is 63 cm/s, the proximal popliteal artery is 78 cm/s, the distal popliteal artery is 75 cm/s, the anterior tibial artery is 21 cm/s, the posterior tibial artery artery is 200 cm/s,and the dorsalis pedal artery is 17 cm/s. IMPRESSION: 1. Atherosclerotic disease. 2. Abnormal monophasic arterial waveforms are seen in the left distal popliteal, left posterior tibial, anterior tibial and dorsalis pedal arteries with hyperemic flow.
[2024-10-19] MEDS: acetaMINOPHEN WITH coDEINE 1 TAB TAB PO PRN (10:27)
--- NOTE | 2024-10-19 10:30 | NUR ---
DCP: HOME Pt currently lives with gisel Meehan in their home. Pt denied any insecurities with food, custodial, and/or utilities. Pt has a wheelchair that pt uses to ambulate. Pt has a provider that goes to his home to assist with ADLs, housekeeping and meals however could not recall how many hours or name of agency. PCP and RX needs are met at [facility]. At [place] pt will return home and family can assist with transportation. Addendum: 10/19/24 at 1032 by TRUE MARTINEZ SS Amended: Links added.
--- NOTE | 2024-10-19 15:05 | NUR ---
[facility] Consult: Patient assessed by wound healing team. See wound assessment. Assessment and recommendations provided to primary nurse. Education provided. Wound care done. Addendum: 10/20/24 at 0958 by ANAI SALOMON RN RN/ Amended: Links added.
--- NOTE | 2024-10-19 15:40 | PN ---
[facility] PROGRESS NOTE Date of Service: October 19, 2024 Time of Service: 14:35 SUBJECTIVE: This is a 74 year old male with past medical history of PVD with PCI ,diabetes,hypertension ,GERD and hyperlipidemia who presents to the ED for complaints of severe pain to left leg ulcer and swelling and he noticed bloody drainage this afternoon so he decided to come to the ED for further evaluati on.Patient reports that this wound started since November 2023 and is doing medihoney dressing everyday but patient has not taken antibiotic.Patient states he had a stent placed by on both lower legs on 08/14/2024. Seen and examined patient in the Ed awake,alert and coherent appears uncomfortable complaints of left leg pain 8/10 pain level.Patient denies,fever,chills,nausea,vomiting,chest pain,palpitation and shortness of breath. Vital signs temperature 98.2 heart rate 72 blood pressure 161/75 saturation 98% on room air. Labs: Hemoglobin 13, hematocrit 41, platelet count 284. Glucose 281 calcitonin less than 0 point 0 five. X-ray of the left leg result revealed there is no acute displaced fracture or dislocation. There is soft tissue swelling. Vascular calcifications are seen. Small calcaneal spur is seen. Evaluation for osteomyelitis is limited with radiographs. Degenerative changes are seen. While in the ER patient received Zosyn IV, morphine 2 mg IV and Zofran 4 mg IV. We will admit patient for further medical management. 10/19/24 The patient was seen and examined today morning. His daughter is at the bedside. He is complaining on and off ulcer pain. Clinically, the ulcer looks like pyoderma gangrenosum. We will check hepatitis panel. Patient may have associated IBD. Infectious disease recommending general surgery and hem & onc. wound culture results pending. Arterial US showed atherosclerotic disease, abnormal monophasic arterial wave for seen in the left distal popliteal, left posterior tibial, anterior tibial and dorsalis pedal arteries with hyperemic flow. REVIEW OF SYSTEMS CONSTITUTIONAL: Denies fevers, chills, or night sweats. No unintentional weight loss reported. NEUROLOGICAL: Denies headache, amaurosis fugax, motor weakness, sensory deficit, vertigo/spinning sensation, gait abnormalities, or tremors. ENT: No hearing loss, otalgia, otorrhea, rhinitis, rhinorrhea, hoarseness, or sore throat. CARDIOVASCULAR: Denies any exertional angina, dyspnea on exertion, orthopnea, paroxysmal nocturnal dyspnea, palpitations, life-threatening arrhythmias, claudication. PULMONARY: Denies any shortness of breath, cough, phlegm/sputum, hemoptysis, pleuritic chest pain. SLEEP: Denies morning headaches, daytime somnolence or napping. Denies difficulty falling asleep, staying asleep, waking from sleep. Denies knowledge of snoring. GASTROINTESTINAL: Denies any type of dysphagia to either liquids or solids. Denies nausea, vomiting, pyrosis, early satiety, abdominal pain, diarrhea, constipation, or changes in stool consistency or caliber. Denies coffee-ground emesis, hematemesis, hematochezia, or melanotic stools. GENITOURINARY: Denies frequency, urgency, nocturia, hematuria or incontinence (Storage/Irritative symptoms.) Low urinary stream, straining to void, urinary intermittency or hesitancy, splitting of the voiding stream, terminal dribbling. ENDOCRINOLOGIC: Denies polyuria, polydipsia, polyphagia or heat/cold intolerances. HEMATOLOGIC: Denies thrombophilia/previous clots, or coagulopathy/bleeding disorders. ONCOLOGIC: Denies personal history of malignancy. DERMATOLOGIC: Denies rashes or pruritus. PSYCHIATRIC: Denies any suicidal or homicidal ideation. Denies hallucinations. PHYSICAL EXAM GENERAL APPEARANCE: The patient is awake, alert, and oriented, in no acute cardiopulmonary distress. NEUROLOGICAL: Cranial nerves II-XII grossly intact. Motor is 5/5 in bilateral upper and lower extremities proximal to distal. No sensory deficits. HEENT: Face is symmetric. Pupils are equal and reactive. Extraocular movements are intact. NECK: Supple. No JVD. No thyromegaly. No submental, submandibular, pre- /postauricular, occipital or supraclavicular lymphadenopathy. CHEST: Normal chest expansion. No Telemetry. LUNGS: Absence of any rales, rhonchi or any wheezing. CARDIOVASCULAR: Regular. S1 and S2 normal. No appreciable rubs, murmurs or gallops. ABDOMEN: Soft, nontender, and nondistended. There is no rebound, voluntary gu arding, or rigidity. : Deferred. No Bonilla. EXTREMITIES: Non-edematous and not cyanotic. No clubbing. Good capillary refill. SKIN: Non healing wound ulcer to left leg Vital Signs (last 8hr) Date Time Temp Pulse Resp B/P (MAP) Pulse Ox O2 Delivery O2 Flow Rate FiO2 10/19/24 12:03 97.9 72 18 115/59 96 Room Air 10/19/24 08:17 96 Room Air* 0 21 10/19/24 07:58 97.9 78 17 135/70 96 Room Air LABS: Laboratory: Test 10/19/24 11:45 10/19/24 04:41 10/18/24 16:18 Range/Units Whole Blood Glucose 168 H 70-110 MG/DL White Blood Count 8.8 4.8-10.8 K/uL Red Blood Count 4.06 L 4.50-6.20 MIL/uL Hemoglobin 12.7 L 14.0-18.0 g/dL Hematocrit 38.1 L 42-54 % Mean Corpuscular Volume 93.8 79-99 fL Mean Corpuscular Hemoglobin 31.3 27.0-33.0 pg Mean Corpuscular Hemoglobin Concent 33.3 32.0-36.0 g/dL Red Cell Distribution Width 12.5 11.0-15.5 % Platelet Count 273 130-400 K/uL Mean Platelet Volume 10.3 7.5-10.5 fL Immature Granulocyte % (Auto) 0.3 0-1 % Neutrophils (%) (Auto) 62.3 40.0-77.0 % Lymphocytes (%) (Auto) 25.0 21.0-51.0 % Monocytes (%) (Auto) 9.3 3.0-13.0 % Eosinophils (%) (Auto) 2.5 0.0-8.0 % Basophils (%) (Auto) 0.6 0.0-5.0 % Neutrophils # (Auto) 5.5 1.8-7.7 K/uL Lymphocytes # (Auto) 2.2 1.0-4.8 K/uL Monocytes # (Auto) 0.8 0.1-1.0 K/uL Eosinophils # (Auto) 0.22 0.00-0.70 K/uL Basophils # (Auto) 0.05 0.00-0.20 K/uL Absolute Immature Granulocyte (auto 0.03 0-1 K/uL Nucleated Red Blood Cells 0.0 0.0-0.19 % Sodium Level 142 136-145 mmol/L Potassium Level 3.9 3.5-5.1 mmol/L Chloride Level 107 101-111 mmol/L Carbon Dioxide Level 29 21-32 mmol/L Blood Urea Nitrogen 17 7-18 mg/dL Creatinine 0.8 0.5-1.3 mg/dL Glomerular Filtration Rate Calc 93 >90 mL/min Random Glucose 128 #H 70-105 mg/dL Hemoglobin A1c 10.3 H 4.0-6.0 % Estimated Average Glucose (eAG) 249 H 70-126 mg/dL Total Calcium 8.3 L 8.5-10.1 mg/dL Magnesium Level 2.10 1.80-2.40 mg/dL Total Bilirubin 0.4 0.2-1.0 mg/dL Aspartate Amino Transf (AST/SGOT) 15 10-37 U/L Alanine Aminotransferase (ALT/SGPT) 15 12-78 U/L Alkaline Phosphatase 59 50-136 U/L Total Protein 6.1 6.0-8.3 g/dL Albumin 2.9 L 3.5-5.0 g/dL Erythrocyte Sedimentation Rate 17 0-20 MM/HR Lactic Acid Level 1.3 0.8-2.5 mmol/L Procalcitonin < 0.05 L 0.05-0.5 ng/mL Current Medications Medications (Trade) Dose Ordered Sig/Dorinda Route PRN Reason Start Time Stop Time Status Last Admin Dose Admin Acetaminophen (TYLenol 325MG TAB) 650 mg Q4H PRN PO MILD PAIN (1-3) 10/18/24 20:00 11/17/24 19:59 Acetaminophen (TYLenol 325MG TAB) 650 mg Q6H PRN PO TEMPERATURE GREATER THAN 101.5 10/18/24 20:00 11/17/24 19:59 Acetaminophen/ Codeine Phosphate (TYLenol-coDEINE TAB) 2 tab Q6H PRN PO SEVERE PAIN (7-10) 10/19/24 09:30 11/18/24 09:29 10/19/24 10:27 2 TAB Atorvastatin Calcium (LIPItor 10MG) 5 mg HS PO 10/19/24 21:00 11/18/24 20:59 Clopidogrel Bisulfate (plaVIX 75MG) 75 mg DAILY PO 10/20/24 09:00 11/19/24 08:59 Dextrose (D50w) 50 ml AD PRN IV HYPOGLYCEMIA PROTOCOL 5/21/25 20:00 11/17/24 19:59 Famotidine (Pepcid 20mg Tab) 20 mg BID PO 10/18/24 21:00 11/17/24 20:59 10/19/24 08:03 20 MG Glucagon (Glucagon 1mg Kit) 1 mg AD PRN IM HYPOGLYCEMIA PROTOCOL 10/18/24 20:00 11/17/24 19:59 Hydrochlorothiazide (hydroCHLOROthiazide 25MG) 12.5 mg DAILY PO 10/20/24 09:00 11/19/24 08:59 Insulin Human Regular (humuLIN R 100 UNIT/ML 3ML) INSULIN SLIDING SCAL... ACHS SQ 10/18/24 21:00 11/17/24 20:59 10/18/24 21:37 2 UNIT Losartan Potassium (CozAAR 25MG TAB) 25 mg DAILY PO 10/20/24 09:00 11/19/24 08:59 Magnesium Sulfate 50 ml @ 0 mls/hr PROTOCOL PRN IV OTHER [SEE ORDER COMMENTS] 10/18/24 20:00 11/17/24 19:59 Morphine Sulfate (morPHINE 2MG SYG) 2 mg ONCE STAT IVP 10/18/24 19:33 10/18/24 19:38 DC 10/18/24 20:04 2 MG Morphine Sulfate (morPHINE 2MG SYG) 2 mg Q4H PRN IV MODERATE PAIN (4-6) 10/18/24 20:00 10/25/24 19:59 10/19/24 08:32 2 MG Multivitamins Therapeutic (Multivitamin Tablet) 1 tab DAILY PO 10/20/24 09:00 11/19/24 08:59 Ondansetron HCl (zoFRAN 4MG INJ) 4 mg ONCE STAT IVP 10/18/24 19:33 10/18/24 19:38 DC 10/18/24 20:04 4 MG Ondansetron HCl (zoFRAN 4MG INJ) 4 mg Q6H PRN IV NAUSEA/VOMITING 10/18/24 20:00 11/17/24 19:59 10/19/24 00:56 4 MG Piperacillin Sod/ Tazobactam Sod 50 ml @ 12.5 mls/hr Q8H IV 10/19/24 04:00 10/29/24 03:59 10/19/24 13:33 12.5 MLS/HR Piperacillin Sod/ Tazobactam Sod (Zosyn 3.375gm+NS 50ml) 3.375 gm ONCE STAT IV 10/18/24 19:31 10/18/24 19:38 DC 10/18/24 20:04 3.375 GM Potassium Chloride 100 ml @ 100 mls/hr AD PRN IV POTASSIUM PROTOCOL 10/18/24 20:00 11/17/24 19:59 Potassium Chloride (K-Dur/Klor-Con 20meq) 20 meq AD PRN PO POTASSIUM PROTOCOL 10/18/24 20:00 11/17/24 19:59 Potassium Chloride (KCl 10% Elixir 20meq/15ml) 20 meq AD PRN PO POTASSIUM PROTOCOL 10/18/24 20:00 11/17/24 19:59 Vancomycin HCl 250 ml @ 125 mls/hr ONCE IV 10/18/24 20:00 10/18/24 20:20 DC Vancomycin HCl (Vancomycin 750mg) 750 mg Q12H IVPB 10/19/24 09:00 10/29/24 08:59 10/19/24 08:26 750 MG Vancomycin HCl (Vancomycin Protocol) 1 each AD IV 10/18/24 20:30 11/01/24 20:29 DIAGNOSTICS / RADIOLOGY: [address] [address] IMAGING REPORT Signed PATIENT: GENIE GONZALES MR#: [id number] : 1950 SEX: M AGE: 74 LOCATION: [facility] ORDER 1611 STATUS: REG ER REPORT#: [id number] SERVICE 1609 REASON: wound ORDERING PHYSICIAN: BONITA FIGUEROA NP PROCEDURE: TIBFIB LT - TIBIA/FIBULA 2VWS LT TIBIA/FIBULA 2VWS LT HISTORY: Wound COMPARISON: None TECHNIQUE: 2 images of the left tibia and fibula were obtained. FINDINGS: There is no acute displaced fracture or dislocation. There is soft tissue swelling. Vascular calcifications are seen. Small calcaneal spur is seen. Evaluation for osteomyelitis is limited with radiographs. Degenerative changes are seen. IMPRESSION: 1. Findings as described above. DICTATED BY: PRAKASH MACK MD DATE: 10/18/24 1637 ELECTRONICALLY SIGNED BY: PRAKASH MACK MD DATE: 10/18/[address] [facility] [address] [place] [id number] IMAGING REPORT Signed PATIENT: GENIE GONZALES MR#: [id number] : 1950 SEX: M AGE: 74 LOCATION: 3AH ORDER 08 STATUS: ADM IN [facility] REPORT#: [id number] SERVICE 04 REASON: pain and swelling to left lower extremity ORDERING PHYSICIAN: DIANA BLACK INTER FOLD ROLL CUTTER PROCEDURE: ART U LE - US ARTERIAL UNILA LOW EXT DUPL US ARTERIAL UNILA LOW EXT DUPL HISTORY: Pain and swelling COMPARISON: None TECHNIQUE: Left lower extremity arterial Doppler ultrasound study was performed. FINDINGS: Abnormal monophasic arterial waveforms are seen in the left distal popliteal, left posterior tibial, anterior tibial and dorsalis pedal arteries with hyperemic flow. Normal triphasic and biphasic arterial waveforms are noted in the left common femoral, deep femoral, superficial femoral, and popliteal arteries. On the left, the peak systolic velocity of the common femoral artery is 123 cm/s, the proximal femoral artery is 164 cm/s, the mid femoral artery is 95 cm/s, the distal femoral artery is 63 cm/s, the proximal popliteal artery is 78 cm/s, the distal popliteal artery is 75 cm/s, the anterior tibial artery is 21 cm/s, the posterior tibial artery artery is 200 cm/s,and the dorsalis pedal artery is 17 cm/s. IMPRESSION: 1. Atherosclerotic disease. 2. Abnormal monophasic arterial waveforms are seen in the left distal popliteal, left posterior tibial, anterior tibial and dorsalis pedal arteries with hyperemic flow. DICTATED BY: PRAKASH MACK MD DATE: 10/19/24 0953 ELECTRONICALLY SIGNED BY: PRAKASH MACK MD DATE: 10/19/[address] [facility] [address] [place] [id number] IMAGING REPORT Signed PATIENT: GENIE GONZALES MR#: [id number] : 1950 SEX: M AGE: 74 LOCATION: ED[facility] ORDER 08 STATUS: ADM IN REPORT#: [id number] SERVICE 04 REASON: pain and swelling to left lower extremity ORDERING PHYSICIAN: DIANA BLACK INTER [employer] ROLL CUTTER PROCEDURE: VENOUS UNI - US VENOUS DOPPLER UNILATERAL US VENOUS DOPPLER UNILATERAL HISTORY: Pain and swelling COMPARISON: None TECHNIQUE: Left lower extremity venous Doppler ultrasound study was performed. FINDINGS: The left common femoral, femoral, popliteal, and posterior tibial veins are visualized. Normal flow with augmentation and compressibilities are demonstrated. Left greater saphenous vein is patent. IMPRESSION: 1. No evidence of deep venous thrombosis is seen. 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 Continue on heart healthy and consistent carb diet Suspected Pyoderma Gangrenosum Clinically, the ulcer looks like pyoderma gangrenosum. We will obtain acute hepatitis panel. Infectious disease consult appreciated, who recommended to continue with IV Vancomycin. ID consulted General Surgery and Hematology. Diabetic leg ulcer with suspected infection and necrosis POA Wound management is consulted and pending evaluation. Continue IV vancomycin and IV zosyn. Pending wound culture results. History of PVD with PCI Continue Clopidogrel. Uncontrolled diabetes POA Continue glucose checks AC & HS. Follow insulin sliding scale with hypoglycemia protocol HbA1c is 10.3% on admission. We will start him on home dose insulin Lantus 24 U HS. Gabapentin 100 mg TID. Hypertension POA Continue home medication Losartan and hydrochlorothiazide. Hyperlipidemia POA Continue home medication Pravastatin 20 mg. Lovenox 30 mg SQ daily for DVT prophylaxis Famotidine 20 mg p.o. bid for GI prophylaxis PRN medication for fever,pain,cough ,nausea and vomiting ATTESTATION BY PHYSICIAN I have seen and examined the patient. I reviewed the documentation, medical decision making, and treatment plan as noted by the resident provider above. I agree with the findings and plan of care. Gurmeet Rivas MD, KRUPALI P MD October 19, 2024 15:40
[2024-10-19] MEDS: ENOXAPARIN SODIUM 30 MG/0.3 ML SQ SCH (16:46)
[2024-10-19] MEDS: HONEY 1 APPL/ML TUBE TP ONE (16:48)
--- NOTE | 2024-10-19 17:55 | CONS ---
CONSULT NOTE: This is a 74 year old male with past medical history of PVD with PCI ,diabetes,hypertension ,GERD and hyperlipidemia who presents to the ED for complaints of severe pain to left leg ulcer and swelling and he noticed bloody drainage this afternoon so he decided to come to the ED for further evaluation.Patient reports that this wound started since November 2023 and is doing medihoney dressing everyday but patient has not taken antibiotic.Patient states he had a stent placed by on both lower legs on 08/14/2024. Seen and examined patient in the Ed awake,alert and coherent appears uncomfor table complaints of left leg pain 8/10 pain level.Patient denies,fever,chills,nausea,vomiting,chest pain,palpitation and shortness of breath. Vital signs temperature 98.2 heart rate 72 blood pressure 161/75 saturation 98% on room air. Labs: Hemoglobin 13, hematocrit 41, platelet count 284. Glucose 281 calcitonin less than 0 point 0 five. X-ray of the left leg result revealed there is no acute displaced fracture or dislocation. There is soft tissue swelling. Vascular calcifications are seen. Small calcaneal spur is seen. Evaluation for osteomyelitis is limited with radiographs. Degenerative changes are seen. While in the ER patient received Zosyn IV, morphine 2 mg IV and Zofran 4 mg IV. We will admit patient for further medical management. REVIEW OF SYSTEMS CONSTITUTIONAL: Denies fevers, chills, or night sweats. No unintentional weight loss reported. NEUROLOGICAL: Denies headache, amaurosis fugax, motor weakness, sensory deficit, vertigo/spinning sensation, gait abnormalities, or tremors. ENT: No hearing loss, otalgia, otorrhea, rhinitis, rhinorrhea, hoarseness, or sore throat. CARDIOVASCULAR: Denies any exertional angina, dyspnea on exertion, orthopnea, paroxysmal nocturnal dyspnea, palpitations, life-threatening arrhythmias, claudication. PULMONARY: Denies any shortness of breath, cough, phlegm/sputum, hemoptysis, pleuritic chest pain. SLEEP: Denies morning headaches, daytime somnolence or napping. Denies difficulty falling asleep, staying asleep, waking from sleep. Denies knowledge of snoring. GASTROINTESTINAL: Denies any type of dysphagia to either liquids or solids. Denies nausea, vomiting, pyrosis, early satiety, abdominal pain, diarrhea, constipation, or changes in stool consistency or caliber. Denies coffee-ground emesis, hematemesis, hematochezia, or melanotic stools. GENITOURINARY: Denies frequency, urgency, nocturia, hematuria or incontinence (Storage/Irritative symptoms.) Low urinary stream, straining to void, urinary intermittency or hesitancy, splitting of the voiding stream, terminal dribbling. ENDOCRINOLOGIC: Denies polyuria, polydipsia, polyphagia or heat/cold intolerances. HEMATOLOGIC: Denies thrombophilia/previous clots, or coagulopathy/bleeding disorders. ONCOLOGIC: Denies personal history of malignancy. DERMATOLOGIC: Denies rashes or pruritus. PSYCHIATRIC: Denies any suicidal or homicidal ideation. Denies hallucinations. PAST MEDICAL HISTORY: [ PVD, diabetes, hypertension, hyperlipidemia ] PAST SURGICAL HISTORY: [ Stent to bilateral lower extremities ] PAST SOCIAL HISTORY: [ Patient lives with . Patient denies alcohol tobacco and recreational drug use ] FAMILY HISTORY: [ Noncontributory ] Coded Allergies: No Known Drug Allergies (Unverified Allergy, Unknown, 01/24/19) PHYSICAL EXAM GENERAL APPEARANCE: The patient is awake, alert, and oriented, in no acute cardiopulmonary distress. NEUROLOGICAL: Cranial nerves II-XII grossly intact. Motor is 5/5 in bilateral upper and lower extremities proximal to distal. No sensory deficits. HEENT: Face is symmetric. Pupils are equal and reactive. Extraocular movements are intact. NECK: Supple. No JVD. No thyromegaly. No submental, submandibular, pre- /postauricular, occipital or supraclavicular lymphadenopathy. CHEST: Normal chest expansion. No Telemetry. LUNGS: Absence of any rales, rhonchi or any wheezing. CARDIOVASCULAR: Regular. S1 and S2 normal. No appreciable rubs, murmurs or gallops. ABDOMEN: Soft, nontender, and nondistended. There is no rebound, voluntary g uarding, or rigidity. : Deferred. No Bonilla. EXTREMITIES: Non-edematous and not cyanotic. No clubbing. Good capillary refill. SKIN: Non healing wound ulcer to left leg Assessment 1. Leg ulcer most likely diabetic/ischemic versus. Pyoderma Gengerosum 2. Nonhealing wound ulcer to the left leg 3. Uncontrolled diabetes 4. Hypertension 5. Hyperlipidemia Plan 1. There is suspicious for Pyoderma Gengerosum patient was seen by surgery. There is need for debridement. Will follow-up with the result of pathology. If confirmed the diagnosis this patient could benefit from rituximab. 2. Continue antibiotic treatment as per infectious disease specialist 3. It seems this patient may be need antiplatelet treatment with aspirin and Plavix with the ulcer most likely is a due to arterial issueLAB RESULTS 10/19/24 16:20: Whole Blood Glucose 196H 10/19/24 04:41: White Blood Count 8.8, Red Blood Count 4.06L, Hemoglobin 12.7L, Hematocrit 38.1L, Mean Corpuscular Volume 93.8, Mean Corpuscular Hemoglobin 31.3, Mean Corpuscular Hemoglobin Concent 33.3, Red Cell Distribution Width 12.5, Platelet Count 273, Mean Platelet Volume 10.3, Immature Granulocyte % (Auto) 0.3, Neutrophils (%) (Auto) 62.3, Lymphocytes (%) (Auto) 25.0, Monocytes (%) (Auto) 9.3, Eosinophils (%) (Auto) 2.5, Basophils (%) (Auto) 0.6, Neutrophils # (Auto) 5.5, Lymphocytes # (Auto) 2.2, Monocytes # (Auto) 0.8, Eosinophils # (Auto) 0.22, Basophils # (Auto) 0.05, Absolute Immature Granulocyte (auto 0.03, Nucleated Red Blood Cells 0.0, Sodium Level 142, Potassium Level 3.9, Chloride Level 107, Carbon Dioxide Level 29, Blood Urea Nitrogen 17, Creatinine 0.8, Glomerular Filtration Rate Calc 93, Random Glucose 128#H, Hemoglobin A1c 10.3H, Estimated Average Glucose (eAG) 249H, Total Calcium 8.3L, Magnesium Level 2.10, Total Bilirubin 0.4, Aspartate Amino Transf (AST/SGOT) 15, Alanine Aminotransferase (ALT/SGPT) 15, Alkaline Phosphatase 59, Total Protein 6.1, Albumin 2.9L 10/18/24 16:18: Erythrocyte Sedimentation Rate 17, Lactic Acid Level 1.3, Procalcitonin < 0.05L Laboratory Tests Test 10/18/24 21:21 10/19/24 04:41 10/19/24 05:08 10/19/24 11:45 Whole Blood Glucose 178 MG/DL (70-110) H 125 MG/DL (70-110) H 168 MG/DL (70-110) H White Blood Count 8.8 K/uL (4.8-10.8) Red Blood Count 4.06 MIL/uL (4.50-6.20) L Hemoglobin 12.7 g/dL (14.0-18.0) L Hematocrit 38.1 % (42-54) L Mean Corpuscular Volume 93.8 fL (79-99) Mean Corpuscular Hemoglobin 31.3 pg (27.0-33.0) Mean Corpuscular Hemoglobin Concent 33.3 g/dL (32.0-36.0) Red Cell Distribution Width 12.5 % (11.0-15.5) Platelet Count 273 K/uL (130-400) Mean Platelet Volume 10.3 fL (7.5-10.5) Immature Granulocyte % (Auto) 0.3 % (0-1) Neutrophils (%) (Auto) 62.3 % (40.0-77.0) Lymphocytes (%) (Auto) 25.0 % (21.0-51.0) Monocytes (%) (Auto) 9.3 % (3.0-13.0) Eosinophils (%) (Auto) 2.5 % (0.0-8.0) Basophils (%) (Auto) 0.6 % (0.0-5.0) Neutrophils # (Auto) 5.5 K/uL (1.8-7.7) Lymphocytes # (Auto) 2.2 K/uL (1.0-4.8) Monocytes # (Auto) 0.8 K/uL (0.1-1.0) Eosinophils # (Auto) 0.22 K/uL (0.00-0.70) Basophils # (Auto) 0.05 K/uL (0.00-0.20) Absolute Immature Granulocyte (auto 0.03 K/uL (0-1) Nucleated Red Blood Cells 0.0 % (0.0-0.19) Sodium Level 142 mmol/L (136-145) Potassium Level 3.9 mmol/L (3.5-5.1) Chloride Level 107 mmol/L (101-111) Carbon Dioxide Level 29 mmol/L (21-32) Blood Urea Nitrogen 17 mg/dL (7-18) Creatinine 0.8 mg/dL (0.5-1.3) Glomerular Filtration Rate Calc 93 mL/min (>90) Random Glucose 128 mg/dL (70-105) #H Hemoglobin A1c 10.3 % (4.0-6.0) H Estimated Average Glucose (eAG) 249 mg/dL (70-126) H Total Calcium 8.3 mg/dL (8.5-10.1) L Magnesium Level 2.10 mg/dL (1.80-2.40) Total Bilirubin 0.4 mg/dL (0.2-1.0) Aspartate Amino Transf (AST/SGOT) 15 U/L (10-37) Alanine Aminotransferase (ALT/SGPT) 15 U/L (12-78) Alkaline Phosphatase 59 U/L (50-136) Total Protein 6.1 g/dL (6.0-8.3) Albumin 2.9 g/dL (3.5-5.0) L Test 10/19/24 16:20 Whole Blood Glucose 196 MG/DL (70-110) H KARTIK MALDONADO MD October 19, 2024 17:55
--- NOTE | 2024-10-19 18:20 | CONS ---
GENERAL SURGERY CONSULTATION NOTE DATE OF CONSULTATION: October 19, 2024 TIME OF CONSULTATION: 18:20 CONSULTING SERVICE: Derick Chavez MD REQUESTING PHYSICAIN: [ ] REASON FOR CONSULTATION: [ ] HISTORY OF PRESENT ILLNESS: [ ] PAST MEDICAL HISTORY: [ ] PAST SURGICAL HISTORY: [ ] FAMILY HISTORY: [ ] SOCIAL HISTORY: [ ] Current Medications Medications (Trade) Dose Ordered Sig/Dorinda Route Start Time Stop Time Status Last Admin Dose Admin Atorvastatin Calcium (LIPItor 10MG) 5 mg HS PO 10/19/24 21:00 11/18/24 20:59 Clopidogrel Bisulfate (plaVIX 75MG) 75 mg DAILY PO 10/20/24 09:00 11/19/24 08:59 Enoxaparin Sodium (Lovenox) 30 mg DAILY SQ 10/19/24 16:00 11/18/24 15:59 10/19/24 16:46 30 MG Famotidine (Pepcid 20mg Tab) 20 mg BID PO 10/18/24 21:00 11/17/24 20:59 10/19/24 08:03 20 MG Gabapentin (NEURontin 100 mg CAP) 100 mg TID PO 10/19/24 21:00 11/18/24 20:59 Hydrochlorothiazide (hydroCHLOROthiazide 25MG) 12.5 mg DAILY PO 10/20/24 09:00 11/19/24 08:59 Insulin Glargine (LANtus 100 UNITS/ML 10 ML VIAL) 20 units HS SQ 10/19/24 21:00 11/18/24 20:59 Insulin Human Regular (humuLIN R 100 UNIT/ML 3ML) INSULIN SLIDING SCAL... ACHS SQ 10/18/24 21:00 11/17/24 20:59 10/19/24 16:51 2 UNIT Leptospermum Honey (Medihoney) 1 appl DAILY TP 10/20/24 09:00 11/19/24 08:59 Losartan Potassium (CozAAR 25MG TAB) 25 mg DAILY PO 10/20/24 09:00 11/19/24 08:59 Morphine Sulfate (morPHINE 2MG SYG) 2 mg ONCE STAT IVP 10/18/24 19:33 10/18/24 19:38 DC 10/18/24 20:04 2 MG Multivitamins Therapeutic (Multivitamin Tablet) 1 tab DAILY PO 10/20/24 09:00 11/19/24 08:59 Ondansetron HCl (zoFRAN 4MG INJ) 4 mg ONCE STAT IVP 10/18/24 19:33 10/18/24 19:38 DC 10/18/24 20:04 4 MG Piperacillin Sod/ Tazobactam Sod 50 ml @ 12.5 mls/hr Q8H IV 10/19/24 04:00 10/29/24 03:59 10/19/24 13:33 12.5 MLS/HR Piperacillin Sod/ Tazobactam Sod (Zosyn 3.375gm+NS 50ml) 3.375 gm ONCE STAT IV 10/18/24 19:31 10/18/24 19:38 DC 10/18/24 20:04 3.375 GM Vancomycin HCl 250 ml @ 125 mls/hr ONCE IV 10/18/24 20:00 10/18/24 20:20 DC Vancomycin HCl (Vancomycin 750mg) 750 mg Q12H IVPB 10/19/24 09:00 10/29/24 08:59 10/19/24 08:26 750 MG Vancomycin HCl (Vancomycin Protocol) 1 each AD IV 10/18/24 20:30 11/01/24 20:29 Allergies: Coded Allergies: No Known Drug Allergies (Unverified Allergy, Unknown, 01/24/19) REVIEW OF SYSTEMS: 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 PHYSICAL EXAMINATION: GENERAL: [Patient is lying comfortably in bed, not in any obvious distress.] HEAD: [Normal with no signs of head trauma.] EYES: [Not pale not jaundiced afebrile to touch.] ENT: [ Normal.] NECK: [Supple,no tenderness,no lymphadenopathy,no masses,no thyromegaly ,no bruits, no JVD.] LUNGS: [Clear breath sounds bilaterally. No wheezes, rales, or rhonchi.] HEART: [Regular rate and rhythm. Normal S1 and S2, without murmurs, rub or gallop.] VASC: [No edema. Peripheral pulses normal and equal in all extremities.] ABD: [Bowel sounds present,soft, RUQ tender, no masses, no organomegaly.] : [Normal, no suprapubic tenderness.] LYMPH: [No lymphadenopathy noted.] EXT: [ Warm soft, non tender.] SKIN: [ No rashes or lesions.] NEURO: [ Awake Alert and oriented x3.] Vital Signs (last 8hr) Date Time Temp Pulse Resp B/P (MAP) Pulse Ox O2 Delivery O2 Flow Rate FiO2 10/19/24 16:00 97.9 72 18 137/63 96 Room Air 10/19/24 12:03 97.9 72 18 115/59 96 Room Air LABORATORY: [ ] Hematology Labs: Test 10/19/24 04:41 10/18/24 16:18 Range/Units White Blood Count 8.8 4.8-10.8 K/uL Red Blood Count 4.06 L 4.50-6.20 MIL/uL Hemoglobin 12.7 L 14.0-18.0 g/dL Hematocrit 38.1 L 42-54 % Mean Corpuscular Volume 93.8 79-99 fL Mean Corpuscular Hemoglobin 31.3 27.0-33.0 pg Mean Corpuscular Hemoglobin Concent 33.3 32.0-36.0 g/dL Red Cell Distribution Width 12.5 11.0-15.5 % Platelet Count 273 130-400 K/uL Mean Platelet Volume 10.3 7.5-10.5 fL Immature Granulocyte % (Auto) 0.3 0-1 % Neutrophils (%) (Auto) 62.3 40.0-77.0 % Lymphocytes (%) (Auto) 25.0 21.0-51.0 % Monocytes (%) (Auto) 9.3 3.0-13.0 % Eosinophils (%) (Auto) 2.5 0.0-8.0 % Basophils (%) (Auto) 0.6 0.0-5.0 % Neutrophils # (Auto) 5.5 1.8-7.7 K/uL Lymphocytes # (Auto) 2.2 1.0-4.8 K/uL Monocytes # (Auto) 0.8 0.1-1.0 K/uL Eosinophils # (Auto) 0.22 0.00-0.70 K/uL Basophils # (Auto) 0.05 0.00-0.20 K/uL Absolute Immature Granulocyte (auto 0.03 0-1 K/uL Nucleated Red Blood Cells 0.0 0.0-0.19 % Erythrocyte Sedimentation Rate 17 0-20 MM/HR Chemistry Labs: Test 10/19/24 16:20 10/19/24 04:41 10/18/24 16:18 Range/Units Whole Blood Glucose 196 H 70-110 MG/DL Sodium Level 142 136-145 mmol/L Potassium Level 3.9 3.5-5.1 mmol/L Chloride Level 107 101-111 mmol/L Carbon Dioxide Level 29 21-32 mmol/L Blood Urea Nitrogen 17 7-18 mg/dL Creatinine 0.8 0.5-1.3 mg/dL Glomerular Filtration Rate Calc 93 >90 mL/min Random Glucose 128 #H 70-105 mg/dL Hemoglobin A1c 10.3 H 4.0-6.0 % Estimated Average Glucose (eAG) 249 H 70-126 mg/dL Total Calcium 8.3 L 8.5-10.1 mg/dL Magnesium Level 2.10 1.80-2.40 mg/dL Total Bilirubin 0.4 0.2-1.0 mg/dL Aspartate Amino Transf (AST/SGOT) 15 10-37 U/L Alanine Aminotransferase (ALT/SGPT) 15 12-78 U/L Alkaline Phosphatase 59 50-136 U/L Total Protein 6.1 6.0-8.3 g/dL Albumin 2.9 L 3.5-5.0 g/dL Lactic Acid Level 1.3 0.8-2.5 mmol/L Procalcitonin < 0.05 L 0.05-0.5 ng/mL DIAGNOSTICS / RADIOLOGY: [Copy/Paste Echos/Imaging Report here] ASSESSMENT: [] PLAN: [] NPO/IVF/IV ANTIOBIOTICS Schedule for OR We talked about various treatment options including but not limited to surgery. We talked about risks and benefits of surgery, patient verbalized understanding has agreed to proceed [ ]. We will schedule [ ]. DERICK CHAVEZ MD October 19, 2024 18:20
[2024-10-19] MEDS: atorVAStatin 10 MG TABLET PO SCH (20:54)
[2024-10-19] MEDS: GABApentin 100 MG CAPSULE PO SCH (20:54)
[2024-10-19] MEDS: INSULIN GLARgine 100 UNITS/ML 10 ML VIAL SQ SCH (20:55)
[2024-10-20] VITALS (28 sets, daily range): BP systolic 111–157; BP diastolic 57–79; PULSE 73–96; RESP 16–20; TEMP 97.7–207.9; O2SAT 97–100
--- NOTE | 2024-10-20 03:34 | CONS ---
INFECTIOUS DISEASE CONSULTATION DATE OF SERVICE: 10/19/2024 REQUESTING PHYSICIAN: Candida Fierro NP REASON FOR CONSULTATION: Elder male with peripheral vascular disease, presented to the hospital with left leg pain, swelling and redness. The patient has chronic ulcer of the left leg, for which he has been treated with multiple antibiotics. The patient claims ulcer has started as a small blister, which has expanded. He has had the wound for about 10 months. Denies trauma or fall. No fever or chills. No cough. No hemoptysis or pleuritic pain. The patient has peripheral vascular disease, for which angiogram and stenting of both lower extremities had been done in the past. PAST MEDICAL HISTORY: * Peripheral vascular disease. * Diabetes mellitus. * Hypertension. * . * Dyslipidemia. * Left leg ulcer. PAST SURGICAL HISTORY: Angiogram and stenting of both lower extremities. ALLERGIES: No known drug allergies. CURRENT MEDICATIONS: Reviewed. SOCIAL HISTORY: No alcohol, tobacco or illicit drug use. FAMILY HISTORY: Positive for diabetes mellitus. REVIEW OF SYSTEMS: CONSTITUTIONAL: No fevers or chills. No weight loss or night sweats. EYES: No eye pain. No photophobia or diplopia. HENT: No sore throat. No rhinorrhea or earache. NECK: . RESPIRATORY: No cough. No hemoptysis or pleuritic pain. CARDIOVASCULAR: No chest pain, palpitations or orthopnea. GASTROINTESTINAL: No nausea, vomiting or abdominal pain. GENITOURINARY: No dysuria, urgency, or urinary frequency. CENTRAL NERVOUS SYSTEM: No headache, dyspnea, or slurred speech. PSYCHIATRY: No depression, no suicidal ideation. MUSCULOSKELETAL: Positive for left leg pain, swelling, and ulcer. SKIN: No rashes, no itching. PHYSICAL EXAMINATION: GENERAL: Elderly male, awake. VITAL SIGNS: Temperature 97.9, pulse of 70, respirations 17, BP 135/70. EYES: No icterus. Pupils are equal and reactive. HENT: No oral thrush seen. Moist oral mucosa. NECK: Supple. No JVD or thyromegaly. LUNGS: Good air entry. No rales, no rhonchi. CARDIOVASCULAR: S1 and S2 regular. No murmur heard. ABDOMEN: Full, soft, obese, nontender. Bowel sounds are present. CENTRAL NERVOUS SYSTEM: Awake, alert, oriented x 3. No focal deficits. SKIN: No rashes, no itchiness. LYMPHATIC: There is left inguinal lymphadenopathy. BACK: No deformity, no pressure ulcer. EXTREMITIES: Ulcer with necrosis involving the left lower extremity. There is some drainage. LABORATORY DATA: Sodium 143, potassium 3.9, BUN 17, creatinine 0.8. Procalcitonin negative. WBC 8.8, hemoglobin is 12.7, platelets 273. RADIOLOGY: X-ray of the tibia and fibula is unremarkable. pending. 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 * Left lower extremity cellulitis. * Diabetes mellitus. * Hypertension. * Peripheral vascular disease. PLAN: * The patient will need wound debridement and tissue biopsy for pathology. * The patient will need steroid. * Oncology evaluation for possible Rituximab. * Continue ADA diet. * Continue antidiabetic. * Continue wound care. * Continue pain management. * Continue nutritional support. * The patient will be followed up closely. Thank you for allowing me to participate in the care of this patient. TID: [id number] RECEIPT: [id number] [facility] HOSPITALAntoinette
[2024-10-20 04:33] LABS: HEPATITIS A IGM ANTIBODY Non-Reactive (Nonreactive); HEPATITIS B CORE IGM ANTIBODY Non-Reactive (Negative); HEPATITIS B SURFACE ANTIGEN Non-Reactive (Nonreactive); HEPATITIS C ANTIBODY Non-Reactive (Nonreactive)
[2024-10-20 04:47] LABS: BASOPHILS # (AUTO) 0.05 K/uL (0.00-0.20); BASOPHILS % (AUTO) 0.5 % (0.0-5.0); EOSINOPHILS # (AUTO) 0.19 K/uL (0.00-0.70); HEMATOCRIT 40.5 % (42-54); IMMATURE GRANULOCYTE ABSOLUTE 0.04 K/uL (0-1); LYMPHOCYTES # (AUTO) 2.2 K/uL (1.0-4.8); LYMPHOCYTES % (AUTO) 23.4 % (21.0-51.0); MEAN CORPUSCULAR HEMOGLOBIN 30.8 pg (27.0-33.0); MEAN CORPUSCULAR HGB CONC 33.1 g/dL (32.0-36.0); MEAN CORPUSCULAR VOLUME 93.1 fL (79-99); MONOCYTES # (AUTO) 0.7 K/uL (0.1-1.0); MONOCYTES % (AUTO) 7.6 % (3.0-13.0); NEUTROPHILS # (AUTO) 6.1 K/uL (1.8-7.7); NEUTROPHILS % (AUTO) 66.1 % (40.0-77.0); PLATELET COUNT (AUTO) 274 K/uL (130-400); RED BLOOD CELL COUNT(AUTO) 4.35 MIL/uL (4.50-6.20); RED CELL DISTRIBUTION WIDTH 12.3 % (11.0-15.5); WHITE BLOOD COUNT (AUTO) 9.3 K/uL (4.8-10.8)
[2024-10-20 05:10] LABS: CREATININE 0.9 mg/dL (0.5-1.3); MAGNESIUM 2.1 mg/dL (1.80-2.40); POTASSIUM 4.2 mmol/L (3.5-5.1)
[2024-10-20] MEDS: LoSARTan 25 MG TABLET PO SCH (07:25)
[2024-10-20] MEDS: hydroCHLOROthiazide 25 MG TABLET PO SCH (07:26)
[2024-10-20] MEDS: MULTIVITAMIN TABLET PO SCH (07:26)
[2024-10-20] MEDS: cloPIDOgrel 75MG TAB PO SCH (07:26)
--- NOTE | 2024-10-20 07:26 | NUR ---
AM PO MEDICATIONS NOT ADMINISTERED DUE TO PATIENT BEING NPO AND SCHEDULED FOR SURGERY TODAY.
--- NOTE | 2024-10-20 07:34 | NUR ---
SPOKE WITH NAEL, OR NURSE, REGARDING LOVENOX FOR PATIENT. PER RECOMMENDATION, WILL HOLD LOVENOX FOR SURGERY TODAY.
[2024-10-20] MEDS: HONEY 1 APPL/ML TUBE TP SCH (07:40)
[2024-10-20] MEDS ORDERED: rocuRONium bROMide 10MG/1ML 5ML VL ONE (08:42)
[2024-10-20] MEDS ORDERED: ondanSETRON 4MG INJ ONE (08:42)
[2024-10-20] MEDS ORDERED: FENTanyl CITRate PF 50 MCG/1 ML 2ML VIAL ONE ×2 (08:42→09:59)
[2024-10-20] MEDS ORDERED: MIDAZOLAM HCL 1 MG/ML 2ML VIAL ONE (08:42)
[2024-10-20] MEDS ORDERED: proPOFol 10 MG/ML 20ML VIAL IV ONE (08:43)
[2024-10-20] MEDS ORDERED: BUPIvacaine/PF 0.25% 30ML VIAL IJ ONE (09:11)
[2024-10-20] MEDS ORDERED: ceFAZolin SODIUM 1 GM VIAL ONE (09:11)
[2024-10-20] MEDS ORDERED: LIDOCAINE HCL 1% 20 ML VIAL ONE (09:11)
[2024-10-20] MEDS: ceFAZolin SODIUM 1 GM VIAL IRRIG ONE (09:45)
[2024-10-20] MEDS ORDERED: NEOSTIGMINE METHYLSULFATE 1MG/ML IV ONE (09:54)
[2024-10-20] MEDS ORDERED: GLYCOPYRROLATE 0.2 MG/ML 5 ML VIAL ONE (09:54)
--- NOTE | 2024-10-20 10:24 | OP ---
DATE OF PROCEDURE: 10/20/2024 PREOPERATIVE DIAGNOSIS: Nonhealing left leg wound. POSTOPERATIVE DIAGNOSIS: Nonhealing left leg wound. PROCEDURE PERFORMED: Debridement and drainage infected left leg wound, skin and fat biopsy, placement of wound VAC. SURGEON: Asia Chavez MD ANESTHESIA: General. ESTIMATED BLOOD LOSS: Minimal FINDINGS: Infected left leg wound. Wound measures about 12 x 12 cm. Debridement is excisional. It involves skin and necrotic fat. SPECIMEN REMOVED: Necrotic tissue, skin and fat. Pus was sent for gram stain, culture and sensitivity. DESCRIPTION OF PROCEDURE: The patient was brought into the operating room. After proper identification, the patient was placed on the operating table in the supine position. General anesthesia was then administered and the patient was endotracheally intubated. Attention was then focused in the area of the left lower extremity. The skin was prepped and draped in the usual sterile fashion. An appropriate timeout was then carried out at this point. I proceeded to take cultures from the visible pores and then I proceeded to debride the wound. The necrotic tissue which involved skin and fat tissue, was carefully debrided excisionally. Also I proceeded to take some skin and fat biopsy. I then proceeded to clean the wound and hemostasis was achieved using the Bovie cautery. I then proceeded to place the wound VAC in the usual way and this concluded the procedure. Instrument and sponge count was found correct x 2. The patient was then woken up, extubated and taken to the recovery room in stable condition. The patient tolerated the procedure well. TID: [id number] RECEIPT: [id number]
[2024-10-20] MEDS: MEPERIDINE-PF 50 MG/ML SYG ONE (10:31)
--- NOTE | 2024-10-20 11:15 | NUR ---
PATIENT JUST RETURNED FROM OR, HOLD PER JONATHAN AMATO. Addendum: 10/20/24 at 1304 by OSCAR VINCENT PT Amended: Links added.
[2024-10-20] MEDS ORDERED: dexaMETHasone SOD PHOSPHATE 4 MG/ML 1ML VIAL IV SCH (13:30)
--- NOTE | 2024-10-20 13:56 | PN ---
[facility] PROGRESS NOTE Date of Service: October 20, 2024 Time of Service: 13:45 SUBJECTIVE: This is a 74 year old male with past medical history of PVD with PCI ,diabetes,hypertension ,GERD and hyperlipidemia who presents to the ED for complaints of severe pain to left leg ulcer and swelling and he noticed bloody drainage this afternoon so he decided to come to the ED for further evaluati on.Patient reports that this wound started since November 2023 and is doing medihoney dressing everyday but patient has not taken antibiotic.Patient states he had a stent placed by on both lower legs on 08/14/2024. Seen and examined patient in the Ed awake,alert and coherent appears uncomfortable complaints of left leg pain 8/10 pain level.Patient denies,fever,chills,nausea,vomiting,chest pain,palpitation and shortness of breath. Vital signs temperature 98.2 heart rate 72 blood pressure 161/75 saturation 98% on room air. Labs: Hemoglobin 13, hematocrit 41, platelet count 284. Glucose 281 calcitonin less than 0 point 0 five. X-ray of the left leg result revealed there is no acute displaced fracture or dislocation. There is soft tissue swelling. Vascular calcifications are seen. Small calcaneal spur is seen. Evaluation for osteomyelitis is limited with radiographs. Degenerative changes are seen. While in the ER patient received Zosyn IV, morphine 2 mg IV and Zofran 4 mg IV. We will admit patient for further medical management. 10/19/24 The patient was seen and examined today morning. His daughter is at the bedside. He is complaining on and off ulcer pain. Clinically, the ulcer looks like pyoderma gangrenosum. We will check hepatitis panel. Patient may have associated IBD. Infectious disease recommending general surgery and hem & onc. wound culture results pending. Arterial US showed atherosclerotic disease, abnormal monophasic arterial wave for seen in the left distal popliteal, left posterior tibial, anterior tibial and dorsalis pedal arteries with hyperemic flow. 10/20/24 patient was seen and evaluated. Patient underwent debridement of left leg ulcer. Aerobic culture showed 2+ Gram-negative rods, identification and sensitivity pending. Arterial ultrasound showed atherosclerotic disease. Abnormal monophasic waveforms in left distal popliteal, left posterior tibial, anterior tibial and dorsalis pedal arteries with hyperemic flow. We will consult Cardiology for peripheral arterial disease. Hepatitis B and C are nonreactive. Dr. Enciso started him on dexamethasone. Continue Plavix. REVIEW OF SYSTEMS CONSTITUTIONAL: Denies fevers, chills, or night sweats. No unintentional weight loss reported. NEUROLOGICAL: Denies headache, amaurosis fugax, motor weakness, sensory deficit, vertigo/spinning sensation, gait abnormalities, or tremors. ENT: No hearing loss, otalgia, otorrhea, rhinitis, rhinorrhea, hoarseness, or sore throat. CARDIOVASCULAR: Denies any exertional angina, dyspnea on exertion, orthopnea, paroxysmal nocturnal dyspnea, palpitations, life-threatening arrhythmias, claudication. PULMONARY: Denies any shortness of breath, cough, phlegm/sputum, hemoptysis, pleuritic chest pain. SLEEP: Denies morning headaches, daytime somnolence or napping. Denies difficulty falling asleep, staying asleep, waking from sleep. Denies knowledge of snoring. GASTROINTESTINAL: Denies any type of dysphagia to either liquids or solids. Denies nausea, vomiting, pyrosis, early satiety, abdominal pain, diarrhea, constipation, or changes in stool consistency or caliber. Denies coffee-ground emesis, hematemesis, hematochezia, or melanotic stools. GENITOURINARY: Denies frequency, urgency, nocturia, hematuria or incontinence (Storage/Irritative symptoms.) Low urinary stream, straining to void, urinary intermittency or hesitancy, splitting of the voiding stream, terminal dribbling. ENDOCRINOLOGIC: Denies polyuria, polydipsia, polyphagia or heat/cold intolerances. HEMATOLOGIC: Denies thrombophilia/previous clots, or coagulopathy/bleeding disorders. ONCOLOGIC: Denies personal history of malignancy. DERMATOLOGIC: Denies rashes or pruritus. PSYCHIATRIC: Denies any suicidal or homicidal ideation. Denies hallucinations. PHYSICAL EXAM GENERAL APPEARANCE: The patient is awake, alert, and oriented, in no acute c ardiopulmonary distress. NEUROLOGICAL: Cranial nerves II-XII grossly intact. Motor is 5/5 in bilateral upper and lower extremities proximal to distal. No sensory deficits. HEENT: Face is symmetric. Pupils are equal and reactive. Extraocular movements are intact. NECK: Supple. No JVD. No thyromegaly. No submental, submandibular, pre- /postauricular, occipital or supraclavicular lymphadenopathy. CHEST: Normal chest expansion. No Telemetry. LUNGS: Absence of any rales, rhonchi or any wheezing. CARDIOVASCULAR: Regular. S1 and S2 normal. No appreciable rubs, murmurs or gallops. ABDOMEN: Soft, nontender, and nondistended. There is no rebound, voluntary guarding, or rigidity. : Deferred. No Bonilla. EXTREMITIES: Non-edematous and not cyanotic. No clubbing. Good capillary refill. SKIN: Non healing wound ulcer to left leg. Vital Signs (last 8hr) Date Time Temp Pulse Resp B/P (MAP) Pulse Ox O2 Delivery O2 Flow Rate FiO2 10/20/24 12:58 84 20 121/68 97 Nasal Cannula 2.0 10/20/24 12:58 86 20 115/64 98 Nasal Cannula 2.0 10/20/24 12:28 86 20 115/64 98 Nasal Cannula 2.0 10/20/24 11:58 96 20 137/72 97 Nasal Cannula 2.0 10/20/24 11:43 87 20 138/79 97 Nasal Cannula 2.0 10/20/24 11:28 82 20 117/62 97 Nasal Cannula 2.0 10/20/24 11:13 81 20 111/65 97 Nasal Cannula 2.0 10/20/24 11:00 97.9 81 20 124/67 97 Nasal Cannula 2.0 10/20/24 10:55 97.9 77 17 130/63 98 Nasal Cannula 2.0 10/20/24 10:50 80 16 126/58 98 Nasal Cannula 2.0 10/20/24 10:45 78 16 128/59 98 Nasal Cannula 2.0 10/20/24 10:40 79 16 138/57 98 Nasal Cannula 2.0 10/20/24 10:35 82 18 152/68 100 Nasal Cannula 2.0 10/20/24 10:30 80 18 147/72 100 Nasal Cannula 2.0 10/20/24 10:25 76 20 148/69 100 Nasal Cannula 2.0 10/20/24 10:20 78 16 149/67 100 Nonrebreathing Mask 10.0 100 10/20/24 10:15 82 20 146/63 100 Nonrebreathing Mask 10.0 100 10/20/24 10:10 97.9 85 18 143/65 100 Nonrebreathing Mask 10.0 100 10/20/24 08:40 207.9 73 18 137/62 97 Room Air 0.0 21 10/20/24 08:00 97.7 73 18 137/62 97 Room Air 21 10/20/24 07:48 97 Room Air* 0 21 LABS: Laboratory: Test 10/20/24 10:13 10/20/24 08:18 10/20/24 04:34 10/19/24 04:41 Range/Units Whole Blood Glucose 148 H 70-110 MG/DL Vancomycin Level Trough 11.0 10.0-20.0 UG/ML White Blood Count 9.3 4.8-10.8 K/uL Red Blood Count 4.35 L 4.50-6.20 MIL/uL Hemoglobin 13.4 L 14.0-18.0 g/dL Hematocrit 40.5 L 42-54 % Mean Corpuscular Volume 93.1 79-99 fL Mean Corpuscular Hemoglobin 30.8 27.0-33.0 pg Mean Corpuscular Hemoglobin Concent 33.1 32.0-36.0 g/dL Red Cell Distribution Width 12.3 11.0-15.5 % Platelet Count 274 130-400 K/uL Mean Platelet Volume 10.3 7.5-10.5 fL Immature Granulocyte % (Auto) 0.4 0-1 % Neutrophils (%) (Auto) 66.1 40.0-77.0 % Lymphocytes (%) (Auto) 23.4 21.0-51.0 % Monocytes (%) (Auto) 7.6 3.0-13.0 % Eosinophils (%) (Auto) 2.0 0.0-8.0 % Basophils (%) (Auto) 0.5 0.0-5.0 % Neutrophils # (Auto) 6.1 1.8-7.7 K/uL Lymphocytes # (Auto) 2.2 1.0-4.8 K/uL Monocytes # (Auto) 0.7 0.1-1.0 K/uL Eosinophils # (Auto) 0.19 0.00-0.70 K/uL Basophils # (Auto) 0.05 0.00-0.20 K/uL Absolute Immature Granulocyte (auto 0.04 0-1 K/uL Nucleated Red Blood Cells 0.0 0.0-0.19 % Sodium Level 139 136-145 mmol/L Potassium Level 4.2 3.5-5.1 mmol/L Chloride Level 106 101-111 mmol/L Carbon Dioxide Level 26 21-32 mmol/L Blood Urea Nitrogen 17 7-18 mg/dL Creatinine 0.9 0.5-1.3 mg/dL Glomerular Filtration Rate Calc 90 >90 mL/min Random Glucose 186 H 70-105 mg/dL Total Calcium 8.4 L 8.5-10.1 mg/dL Magnesium Level 2.10 1.80-2.40 mg/dL Hemoglobin A1c 10.3 H 4.0-6.0 % Estimated Average Glucose (eAG) 249 H 70-126 mg/dL Total Bilirubin 0.4 0.2-1.0 mg/dL Aspartate Amino Transf (AST/SGOT) 15 10-37 U/L Alanine Aminotransferase (ALT/SGPT) 15 12-78 U/L Alkaline Phosphatase 59 50-136 U/L Total Protein 6.1 6.0-8.3 g/dL Albumin 2.9 L 3.5-5.0 g/dL Hepatitis A IgM Antibody Non-Reactive Nonreactive Hepatitis B Surface Antigen. Non-Reactive Nonreactive Hepatitis B Core IgM Antibody Non-Reactive Negative Hepatitis C Antibody Non-Reactive Nonreactive Test 10/18/24 16:18 Range/Units Erythrocyte Sedimentation Rate 17 0-20 MM/HR Lactic Acid Level 1.3 0.8-2.5 mmol/L Procalcitonin < 0.05 L 0.05-0.5 ng/mL Current Medications Medications (Trade) Dose Ordered Sig/Dorinda Route PRN Reason Start Time Stop Time Status Last Admin Dose Admin Acetaminophen (TYLenol 325MG TAB) 650 mg Q4H PRN PO MILD PAIN (1-3) 10/18/24 20:00 11/17/24 19:59 Acetaminophen (TYLenol 325MG TAB) 650 mg Q6H PRN PO TEMPERATURE GREATER THAN 101.5 10/18/24 20:00 11/17/24 19:59 Acetaminophen/ Codeine Phosphate (TYLenol-coDEINE TAB) 2 tab Q6H PRN PO SEVERE PAIN (7-10) 10/19/24 09:30 11/18/24 09:29 10/19/24 16:45 2 TAB Atorvastatin Calcium (LIPItor 10MG) 5 mg HS PO 10/19/24 21:00 11/18/24 20:59 10/19/24 20:54 5 MG Clopidogrel Bisulfate (plaVIX 75MG) 75 mg DAILY PO 10/20/24 09:00 11/19/24 08:59 Dexamethasone Sodium Phosphate (dexaMETHasone 4MG/ML 1ML VIAL) 20 mg Q24H IV 10/20/24 13:30 10/20/24 13:23 DC Dexamethasone Sodium Phosphate 20 mg/Sodium Chloride 50 ml @ 100 mls/hr Q24H IV 10/20/24 14:00 11/19/24 13:59 Dextrose (D50w) 50 ml AD PRN IV HYPOGLYCEMIA PROTOCOL 10/18/24 20:00 11/17/24 19:59 Enoxaparin Sodium (Lovenox) 30 mg DAILY SQ 10/19/24 16:00 11/18/24 15:59 10/19/24 16:46 30 MG Famotidine (Pepcid 20mg Tab) 20 mg BID PO 10/18/24 21:00 11/17/24 20:59 10/19/24 20:54 20 MG Gabapentin (NEURontin 100 mg CAP) 100 mg TID PO 10/19/24 21:00 11/18/24 20:59 10/19/24 20:54 100 MG Glucagon (Glucagon 1mg Kit) 1 mg AD PRN IM HYPOGLYCEMIA PROTOCOL 10/18/24 20:00 11/17/24 19:59 Hydrochlorothiazide (hydroCHLOROthiazide 25MG) 12.5 mg DAILY PO 10/20/24 09:00 11/19/24 08:59 Hydromorphone HCl (DiLAUDid 1MG INJ) 1 mg Q3H3 PRN IVP SEVERE PAIN (7-10) 10/20/24 11:30 10/25/24 11:29 Insulin Glargine (LANtus 100 UNITS/ML 10 ML VIAL) 20 units HS SQ 10/19/24 21:00 11/18/24 20:59 10/19/24 20:55 20 UNITS Insulin Human Regular (humuLIN R 100 UNIT/ML 3ML) INSULIN SLIDING SCAL... ACHS SQ 10/18/24 21:00 11/17/24 20:59 10/19/24 20:57 4 UNIT Leptospermum Honey (Medihoney) 1 appl DAILY TP 10/20/24 09:00 11/19/24 08:59 10/20/24 07:40 1 APPL Losartan Potassium (CozAAR 25MG TAB) 25 mg DAILY PO 10/20/24 09:00 11/19/24 08:59 Magnesium Sulfate 50 ml @ 0 mls/hr PROTOCOL PRN IV OTHER [SEE ORDER COMMENTS] 10/18/24 20:00 11/17/24 19:59 Morphine Sulfate (morPHINE 2MG SYG) 2 mg ONCE STAT IVP 10/18/24 19:33 10/18/24 19:38 DC 10/18/24 20:04 2 MG Morphine Sulfate (morPHINE 2MG SYG) 2 mg Q4H PRN IV MODERATE PAIN (4-6) 10/18/24 20:00 10/25/24 19:59 10/20/24 02:40 2 MG Multivitamins Therapeutic (Multivitamin Tablet) 1 tab DAILY PO 10/20/24 09:00 11/19/24 08:59 Ondansetron HCl (zoFRAN 4MG INJ) 4 mg ONCE STAT IVP 10/18/24 19:33 10/18/24 19:38 DC 10/18/24 20:04 4 MG Ondansetron HCl (zoFRAN 4MG INJ) 4 mg Q6H PRN IV NAUSEA/VOMITING 10/18/24 20:00 11/17/24 19:59 10/20/24 02:40 4 MG Oxycodone/ Acetaminophen (perCOCET) 1 tab Q4H PRN PO SEVERE PAIN (7-10) 10/20/24 11:30 10/27/24 11:29 Piperacillin Sod/ Tazobactam Sod 50 ml @ 12.5 mls/hr Q8H IV 10/19/24 04:00 10/29/24 03:59 10/20/24 12:03 12.5 MLS/HR Piperacillin Sod/ Tazobactam Sod (Zosyn 3.375gm+NS 50ml) 3.375 gm ONCE STAT IV 10/18/24 19:31 10/18/24 19:38 DC 10/18/24 20:04 3.375 GM Potassium Chloride 100 ml @ 100 mls/hr AD PRN IV POTASSIUM PROTOCOL 10/18/24 20:00 11/17/24 19:59 Potassium Chloride (K-Dur/Klor-Con 20meq) 20 meq AD PRN PO POTASSIUM PROTOCOL 10/18/24 20:00 11/17/24 19:59 Potassium Chloride (KCl 10% Elixir 20meq/15ml) 20 meq AD PRN PO POTASSIUM PROTOCOL 10/18/24 20:00 11/17/24 19:59 Vancomycin HCl 250 ml @ 125 mls/hr ONCE IV 10/18/24 20:00 10/18/24 20:20 DC Vancomycin HCl (Vancomycin 750mg) 750 mg Q12H IVPB 10/19/24 09:00 10/29/24 08:59 10/20/24 07:40 750 MG Vancomycin HCl (Vancomycin Protocol) 1 each AD IV 10/18/24 20:30 11/01/24 20:29 DIAGNOSTICS / RADIOLOGY: [place] [address] [address] IMAGING REPORT Signed PATIENT: GENIE GONZALES MR#: [id number] : 1950 SEX: M AGE: 74 LOCATION: [facility] ORDER 08 STATUS: ADM IN REPORT#: [id number] SERVICE 04 REASON: pain and swelling to left lower extremity ORDERING PHYSICIAN: DIANA [employer]ER PROCEDURE: VENOUS UNI - US VENOUS DOPPLER UNILATERAL US VENOUS DOPPLER UNILATERAL HISTORY: Pain and swelling COMPARISON: None TECHNIQUE: Left lower extremity venous Doppler ultrasound study was performed. FINDINGS: The left common femoral, femoral, popliteal, and posterior tibial veins are visualized. Normal flow with augmentation and compressibilities are demonstrated. Left greater saphenous vein is patent. IMPRESSION: 1. No evidence of deep venous thrombosis is seen. DICTATED BY: PRAKASH MACK MD DATE: 10/18/242050 ELECTRONICALLY SIGNED BY: PRAKASH MACK MD DATE: 10/18/242053 [place] [address] [place] [id number] IMAGING REPORT Signed PATIENT: GENIE GONZALES MR#: [id number] : 1950 SEX: M AGE: 74 LOCATION: [facility] ORDER 08 STATUS: ADM IN [facility] REPORT#: [id number] SERVICE 04 REASON: pain and swelling to left lower extremity ORDERING PHYSICIAN: DIANA [employer] T[employer]ER PROCEDURE: ART U LE - US ARTERIAL UNILA LOW EXT DUPL US ARTERIAL UNILA LOW EXT DUPL HISTORY: Pain and swelling COMPARISON: None TECHNIQUE: Left lower extremity arterial Doppler ultrasound study was performed. FINDINGS: Abnormal monophasic arterial waveforms are seen in the left distal popliteal, left posterior tibial, anterior tibial and dorsalis pedal arteries with hyperemic flow. Normal triphasic and biphasic arterial waveforms are noted in the left common femoral, deep femoral, superficial femoral, and popliteal arteries. On the left, the peak systolic velocity of the common femoral artery is 123 cm/s, the proximal femoral artery is 164 cm/s, the mid femoral artery is 95 cm/s, the distal femoral artery is 63 cm/s, the proximal popliteal artery is 78 cm/s, the distal popliteal artery is 75 cm/s, the anterior tibial artery is 21 cm/s, the posterior tibial artery artery is 200 cm/s,and the dorsalis pedal artery is 17 cm/s. IMPRESSION: 1. Atherosclerotic disease. 2. Abnormal monophasic arterial waveforms are seen in the left distal popliteal, left posterior tibial, anterior tibial and dorsalis pedal arteries with hyperemic flow. DICTATED BY: PRAKASH MACK MD DATE: 10/19/24952 ELECTRONICALLY SIGNED BY: PRAKASH MACK MD DATE: 10/19/[address] [address] IMAGING REPORT Signed PATIENT: GENIE GONZALES MR#: [id number] : 1950 SEX: M AGE: 74 LOCATION: [facility] ORDER 1611 STATUS: REG ER REPORT#: [id number] SERVICE 1609 REASON: wound ORDERING PHYSICIAN: BONITA FIGUEROA NP PROCEDURE: TIBFIB LT - TIBIA/FIBULA 2VWS LT TIBIA/FIBULA 2VWS LT HISTORY: Wound COMPARISON: None TECHNIQUE: 2 images of the left tibia and fibula were obtained. FINDINGS: There is no acute displaced fracture or dislocation. There is soft tissue swelling. Vascular calcifications are seen. Small calcaneal spur is seen. Evaluation for osteomyelitis is limited with radiographs. Degenerative changes are seen. IMPRESSION: 1. Findings as described above. 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 Continue on heart healthy and consistent carb diet Suspected Pyoderma Gangrenosum Clinically, the ulcer looks like pyoderma gangrenosum. Hepatitis panel nonreactive. Infectious disease consult appreciated, who recommended to continue with IV Vancomycin. ID consulted General Surgery and Hematology. General surgery consult appreciated and did debridement of left lower leg on 10/20/24. Hematology consult appreciated and started him on IV dexamethasone 20 mg 50 ml @ 100 ml/hour. 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 Continue IV vancomycin and IV zosyn. Aerobic wound culture is positive for 2+ Gram-negative rods. Identification and sensitivity pending. History of PVD with PCI Continue Clopidogrel. Arterial ultrasound showed atherosclerotic disease. Abnormal monophasic waveforms in left distal popliteal, left posterior tibial, anterior tibial and dorsalis pedal arteries with hyperemic flow. Consultation with Cardiology requested and we will follow their recommendations. Uncontrolled diabetes POA Continue glucose checks AC & HS. Follow insulin sliding scale with hypoglycemia protocol HbA1c is 10.3% on admission. Continue on home dose insulin Lantus 24 U HS. Gabapentin 100 mg TID. Hypertension POA Continue home medication Losartan and hydrochlorothiazide. Hyperlipidemia POA Continue home medication Pravastatin 20 mg. Lovenox 30 mg SQ daily for DVT prophylaxis Famotidine 20 mg p.o. bid for GI prophylaxis PRN medication for fever,pain,cough ,nausea and vomiting. ATTESTATION BY PHYSICIAN I have seen and examined the patient. I reviewed the documentation, medical decision making, and treatment plan as noted by the resident provider above. I agree with the findings and plan of care. Gurmeet Rivas MD, KRUPALI P MD October 20, 2024 13:56
[2024-10-20] MEDS: dexaMETHasone 10MG/ML 1ML VIAL 20 MG in 0.9%NACL 50ML 50 ML IV SCH (17:09)
--- NOTE | 2024-10-20 20:16 | PN ---
This is a 74 year old male with past medical history of PVD with PCI ,diabetes,hypertension ,GERD and hyperlipidemia who presents to the ED for complaints of severe pain to left leg ulcer and swelling and he noticed bloody drainage this afternoon so he decided to come to the ED for further evaluation.Patient reports that this wound started since November 2023 and is doing medihoney dressing everyday but patient has not taken antibiotic.Patient states he had a stent placed by on both lower legs on 08/14/2024. Seen and examined patient in the Ed awake,alert and coherent appears uncomfortable complaints of left leg pain 8/10 pain level.Patient denies,fever,chills,nausea,vomiting,chest pain,palpitation and shortness of breath. Vital signs temperature 98.2 heart rate 72 blood pressure 161/75 saturation 98% on room air. Labs: Hemoglobin 13, hematocrit 41, platelet count 284. Glucose 281 calcitonin less than 0 point 0 five. X-ray of the left leg result revealed there is no acute displaced fracture or dislocation. There is soft tissue swelling. Vascular calcifications are seen. Small calcaneal spur is seen. Evaluation for osteomyelitis is limited with radiographs. Degenerative changes are seen. While in the ER patient received Zosyn IV, morphine 2 mg IV and Zofran 4 mg IV. We will admit patient for further medical management. PHYSICAL EXAM GENERAL APPEARANCE: The patient is awake, alert, and oriented, in no acute cardiopulmonary distress. NEUROLOGICAL: Cranial nerves II-XII grossly intact. Motor is 5/5 in bilateral upper and lower extremities proximal to distal. No sensory deficits. HEENT: Face is symmetric. Pupils are equal and reactive. Extraocular movements are intact. NECK: Supple. No JVD. No thyromegaly. No submental, submandibular, pre- /postauricular, occipital or supraclavicular lymphadenopathy. CHEST: Normal chest expansion. No Telemetry. LUNGS: Absence of any rales, rhonchi or any wheezing. CARDIOVASCULAR: Regular. S1 and S2 normal. No appreciable rubs, murmurs or gallops. ABDOMEN: Soft, nontender, and nondistended. There is no rebound, voluntary guarding, or rigidity. : Deferred. No Bonilla. EXTREMITIES: Non-edematous and not cyanotic. No clubbing. Good capillary refill. SKIN: Non healing wound ulcer to left leg Assessment 1. Leg ulcer most likely diabetic/ischemic versus. Pyoderma Gengerosum 2. Nonhealing wound ulcer to the left leg 3. Uncontrolled diabetes 4. Hypertension 5. Hyperlipidemia Plan 1. There is suspicious for Pyoderma Gengerosum patient was seen by surgery. There is need for debridement. Will follow-up with the result of pathology. If confirmed the diagnosis this patient could benefit from rituximab. 2. Continue antibiotic treatment as per infectious disease specialist 3. It seems this patient may be need antiplatelet treatment with aspirin 4. I discussed the case with infectious disease specialist start this patient on dexamethasone 20mg iv daily Vitals/Labs Vital Signs Date Time Temp Pulse Resp B/P (MAP) Pulse Ox O2 Delivery O2 Flow Rate FiO2 10/20/24 16:58 85 20 120/70 98 Nasal Cannula 2.0 10/20/24 11:00 97.9 10/20/24 10:55 24 Laboratory Tests 10/20/24 04:34 Medications Current Medications Piperacillin Sod/ Tazobactam Sod 3.375 gm ONCE STAT IV Last administered on 10/18/24at 20:04; Start 10/18/24 at 19:31; Stop 10/18/24 at 19:38; Status DC Morphine Sulfate 2 mg ONCE STAT IVP Last administered on 10/18/24at 20:04; Start 10/18/24 at 19:33; Stop 10/18/24 at 19:38; Status DC Ondansetron HCl 4 mg ONCE STAT IVP Last administered on 10/18/24at 20:04; Start 10/18/24 at 19:33; Stop 10/18/24 at 19:38; Status DC Acetaminophen 650 mg Q6H PRN PO; Start 10/18/24 at 20:00; Stop 11/17/24 at 19:59 Acetaminophen 650 mg Q4H PRN PO; Start 10/18/24 at 20:00; Stop 11/17/24 at 19:59 Ondansetron HCl 4 mg Q6H PRN IV Last administered on 10/20/24at 02:40; Start 10/18/24 at 20:00; Stop 11/17/24 at 19:59 Famotidine 20 mg BID PO Last administered on 10/19/24at 20:54; Start 10/18/24 at 21:00; Stop 11/17/24 at 20:59 Vancomycin HCl 250 ml @ 125 mls/hr ONCE IV; Start 10/18/24 at 20:00; Stop 10/18/24 at 20:20; Status DC Piperacillin Sod/ Tazobactam Sod 50 ml @ 12.5 mls/hr Q8H IV Last administered on 10/20/24at 12:03; Start 10/19/24 at 04:00; Stop 10/29/24 at 03:59 Morphine Sulfate 2 mg Q4H PRN IV Last administered on 10/20/24at 14:43; Start 10/18/24 at 20:00; Stop 10/25/24 at 19:59 Magnesium Sulfate 50 ml @ 0 mls/hr PROTOCOL PRN IV; Start 10/18/24 at 20:00; Stop 11/17/24 at 19:59 Potassium Chloride 100 ml @ 100 mls/hr AD PRN IV; Start 10/18/24 at 20:00; Stop 11/17/24 at 19:59 Potassium Chloride 20 meq AD PRN PO; Start 10/18/24 at 20:00; Stop 11/17/24 at 19:59 Potassium Chloride 20 meq AD PRN PO; Start 10/18/24 at 20:00; Stop 11/17/24 at 19:59 Insulin Human Regular INSULIN SLIDING SCAL... ACHS SQ Last administered on 10/20/24at 17:12; Start 10/18/24 at 21:00; Stop 11/17/24 at 20:59 Dextrose 50 ml AD PRN IV; Start 10/18/24 at 20:00; Stop 11/17/24 at 19:59 Glucagon 1 mg AD PRN IM; Start 10/18/24 at 20:00; Stop 11/17/24 at 19:59 Vancomycin HCl 500 ml @ 250 mls/hr ONCE ONCE IV Last administered on 10/18/24at 21:33; Start 10/18/24 at 21:00; Stop 10/18/24 at 22:59; Status DC Vancomycin HCl 750 mg Q12H IVPB Last administered on 10/20/24at 07:40; Start 10/19/24 at 09:00; Stop 10/29/24 at 08:59 Vancomycin HCl 1 each AD IV; Start 10/18/24 at 20:30; Stop 11/01/24 at 20:29 Clopidogrel Bisulfate 75 mg DAILY PO; Start 10/20/24 at 09:00; Stop 11/19/24 at 08:59 Losartan Potassium 25 mg DAILY PO; Start 10/20/24 at 09:00; Stop 11/19/24 at 08:59 Multivitamins Therapeutic 1 tab DAILY PO; Start 10/20/24 at 09:00; Stop 11/19/24 at 08:59 Acetaminophen/ Codeine Phosphate 2 tab Q6H PRN PO Last administered on 10/19/24at 16:45; Start 10/19/24 at 09:30; Stop 11/18/24 at 09:29 Hydrochlorothiazide 12.5 mg DAILY PO; Start 10/20/24 at 09:00; Stop 11/19/24 at 08:59 Atorvastatin Calcium 5 mg HS PO Last administered on 10/19/24at 20:54; Start 10/19/24 at 21:00; Stop 11/18/24 at 20:59 Enoxaparin Sodium 30 mg DAILY SQ Last administered on 10/19/24at 16:46; Start 10/19/24 at 16:00; Stop 11/18/24 at 15:59 Gabapentin 100 mg TID PO Last administered on 10/20/24at 14:42; Start 10/19/24 at 21:00; Stop 11/18/24 at 20:59 Insulin Glargine 20 units HS SQ Last administered on 10/19/24at 20:55; Start 10/19/24 at 21:00; Stop 11/18/24 at 20:59 Leptospermum Honey 44 appl STK-MED ONCE TP Last administered on 10/19/24at 16:48; Start 10/19/24 at 16:15; Stop 10/19/24 at 16:15; Status DC Leptospermum Honey 1 appl DAILY TP Last administered on 10/20/24at 07:40; Start 10/20/24 at 09:00; Stop 11/19/24 at 08:59 Midazolam HCl 2 mg STK-MED ONCE .ROUTE; Start 10/20/24 at 08:42; Stop 10/20/24 at 08:42; Status DC Ondansetron HCl 4 mg STK-MED ONCE .ROUTE; Start 10/20/24 at 08:42; Stop 10/20/24 at 08:42; Status DC Rocuronium [place] 50 mg STK-MED ONCE .ROUTE; Start 10/20/24 at 08:42; Stop 10/20/24 at 08:42; Status DC Fentanyl Citrate 100 mcg STK-MED ONCE .ROUTE; Start 10/20/24 at 08:42; Stop 10/20/24 at 08:42; Status DC Propofol 200 mg STK-MED ONCE IV; Start 10/20/24 at 08:43; Stop 10/20/24 at 08:43; Status DC Lidocaine HCl 20 ml STK-MED ONCE .ROUTE; Start 10/20/24 at 09:11; Stop 10/20/24 at 09:11; Status DC Cefazolin Sodium 1 gm STK-MED ONCE .ROUTE; Start 10/20/24 at 09:11; Stop 10/20/24 at 09:11; Status DC Bupivacaine HCl 2.5 mg STK-MED ONCE IJ; Start 10/20/24 at 09:11; Stop 10/20/24 at 09:12; Status DC Glycopyrrolate 1 mg STK-MED ONCE .ROUTE; Start 10/20/24 at 09:54; Stop 10/20/24 at 09:56; Status DC Neostigmine Methylsulfate 10 mg STK-MED ONCE IV; Start 10/20/24 at 09:54; Stop 10/20/24 at 09:56; Status DC Fentanyl Citrate 100 mcg STK-MED ONCE .ROUTE; Start 10/20/24 at 09:59; Stop 10/20/24 at 10:00; Status DC Meperidine HCl 50 mg STK-MED ONCE .ROUTE Last administered on 10/20/24at 10:31; Start 10/20/24 at 10:27; Stop 10/20/24 at 10:27; Status DC Cefazolin Sodium 1 gm STK-MED ONCE IRRIG Last administered on 10/20/24at 09:45; Start 10/20/24 at 09:45; Stop 10/20/24 at 10:56; Status DC Hydromorphone HCl 1 mg Q3H3 PRN IVP; Start 10/20/24 at 11:30; Stop 10/25/24 at 11:29 Oxycodone/ Acetaminophen 1 tab Q4H PRN PO; Start 10/20/24 at 11:30; Stop 10/27/24 at 11:29 Dexamethasone Sodium Phosphate 20 mg Q24H IV; Start 10/20/24 at 13:30; Stop 10/20/24 at 13:23; Status DC Dexamethasone Sodium Phosphate 20 mg/Sodium Chloride 50 ml @ 100 mls/hr Q24H IV Last administered on 10/20/24at 17:09; Start 10/20/24 at 14:00; Stop 11/19/24 at 13:59 KARTIK MALDONADO MD October 20, 2024 20:16
--- NOTE | 2024-10-20 21:17 | PN ---
INFECTIOUS DISEASE PROGRESS NOTE Date of Service: October 20, 2024 SUBJECTIVE: This is a 74-year-old male patient who was seen and examined at bedside in room 303. Patient with a chronic left leg ulcer, possible pyoderma gangrenosum and s/p debridement, skin biopsy and wound VAC placement today.The preliminary wound cultures results is growing Gram-negative rods. We will continue vancomycin and Zosyn IV and follow up on the final cultures results. IV steroid has been initiated and we will continue. PHYSICAL EXAM EYES: Anicteric. Pupils equal and reactive. HENT: No oral thrush seen, moist Oral mucosa NECK: Supple, no JVD or thyromegaly. LUNGS: Good air entry. No rales, no rhonchi. CARDIOVASCULAR: S1, S2 regular. No murmur heard. ABDOMEN: Soft, non tender, bowel sounds present, no organomegaly CENTRAL NERVOUS SYSTEM: Awake, alert, oriented x 3. No focal deficits. SKIN: No rashes, no swelling. LYMPHATICS: No peripheral lymphadenopathy MUSCULOSKELETAL: No joint swelling, erythema or tenderness. EXTREMITIES: No cyanosis or clubbing BACK: No deformity, no pressure ulcer. GENITOURINARY: No dysuria or hematuria Vital Sign (Last 12 Hours) 10/20/24 10/20/24 10/20/24 10/20/24 10:10 10:15 10:20 10:25 Temp 97.9 Pulse 85 82 78 76 Resp 18 20 16 20 B/P (MAP) 143/65 146/63 149/67 148/69 Pulse Ox 100 100 100 100 O2 Delivery Nonrebreathing Mask Nonrebreathing Mask Nonrebreathing Mask Nasal Cannula O2 Flow Rate 10.0 10.0 10.0 2.0 FiO2 100 100 100 24 10/20/24 10/20/24 10/20/24 10/20/24 10:30 10:35 10:40 10:45 Pulse 80 82 79 78 Resp 18 18 16 16 B/P (MAP) 147/72 152/68 138/57 128/59 Pulse Ox 100 100 98 98 O2 Delivery Nasal Cannula Nasal Cannula Nasal Cannula Nasal Cannula O2 Flow Rate 2.0 2.0 2.0 2.0 FiO2 24 24 24 24 10/20/24 10/20/24 10/20/24 10/20/24 10:50 10:55 11:00 11:13 Temp 97.9 97.9 Pulse 80 77 81 81 Resp 16 17 20 20 B/P (MAP) 126/58 130/63 124/67 111/65 Pulse Ox 98 98 97 97 O2 Delivery Nasal Cannula Nasal Cannula Nasal Cannula Nasal Cannula O2 Flow Rate 2.0 2.0 2.0 2.0 FiO2 24 24 10/20/24 10/20/24 10/20/24 10/20/24 11:28 11:43 11:58 12:28 Pulse 82 87 96 86 Resp 20 20 20 20 B/P (MAP) 117/62 138/79 137/72 115/64 Pulse Ox 97 97 97 98 O2 Delivery Nasal Cannula Nasal Cannula Nasal Cannula Nasal Cannula O2 Flow Rate 2.0 2.0 2.0 2.0 10/20/24 10/20/24 10/20/24 10/20/24 12:58 12:58 13:58 14:58 Pulse 86 84 82 85 Resp 20 20 20 20 B/P (MAP) 115/64 121/68 121/67 128/71 Pulse Ox 98 97 98 98 O2 Delivery Nasal Cannula Nasal Cannula Nasal Cannula Nasal Cannula O2 Flow Rate 2.0 2.0 2.0 2.0 10/20/24 10/20/24 15:58 16:58 Pulse 88 85 Resp 20 20 B/P (MAP) 121/71 120/70 Pulse Ox 97 98 O2 Delivery Nasal Cannula Nasal Cannula O2 Flow Rate 2.0 2.0 Intake & Output (last 24hrs) 10/19/24 10/19/24 10/20/24 15:00 23:00 07:00 Intake Total 250.0 ml 350.0 ml Output Total 550 ml 400 ml 1100 ml Balance -300.0 ml -400 ml -750.0 ml LABS: Laboratory: Test 10/20/24 19:52 10/20/24 08:18 10/20/24 04:34 10/19/24 04:41 Range/Units Whole Blood Glucose 260 H 70-110 MG/DL Vancomycin Level Trough 11.0 10.0-20.0 UG/ML White Blood Count 9.3 4.8-10.8 K/uL Red Blood Count 4.35 L 4.50-6.20 MIL/uL Hemoglobin 13.4 L 14.0-18.0 g/dL Hematocrit 40.5 L 42-54 % Mean Corpuscular Volume 93.1 79-99 fL Mean Corpuscular Hemoglobin 30.8 27.0-33.0 pg Mean Corpuscular Hemoglobin Concent 33.1 32.0-36.0 g/dL Red Cell Distribution Width 12.3 11.0-15.5 % Platelet Count 274 130-400 K/uL Mean Platelet Volume 10.3 7.5-10.5 fL Immature Granulocyte % (Auto) 0.4 0-1 % Neutrophils (%) (Auto) 66.1 40.0-77.0 % Lymphocytes (%) (Auto) 23.4 21.0-51.0 % Monocytes (%) (Auto) 7.6 3.0-13.0 % Eosinophils (%) (Auto) 2.0 0.0-8.0 % Basophils (%) (Auto) 0.5 0.0-5.0 % Neutrophils # (Auto) 6.1 1.8-7.7 K/uL Lymphocytes # (Auto) 2.2 1.0-4.8 K/uL Monocytes # (Auto) 0.7 0.1-1.0 K/uL Eosinophils # (Auto) 0.19 0.00-0.70 K/uL Basophils # (Auto) 0.05 0.00-0.20 K/uL Absolute Immature Granulocyte (auto 0.04 0-1 K/uL Nucleated Red Blood Cells 0.0 0.0-0.19 % Sodium Level 139 136-145 mmol/L Potassium Level 4.2 3.5-5.1 mmol/L Chloride Level 106 101-111 mmol/L Carbon Dioxide Level 26 21-32 mmol/L Blood Urea Nitrogen 17 7-18 mg/dL Creatinine 0.9 0.5-1.3 mg/dL Glomerular Filtration Rate Calc 90 >90 mL/min Random Glucose 186 H 70-105 mg/dL Total Calcium 8.4 L 8.5-10.1 mg/dL Magnesium Level 2.10 1.80-2.40 mg/dL Hemoglobin A1c 10.3 H 4.0-6.0 % Estimated Average Glucose (eAG) 249 H 70-126 mg/dL Total Bilirubin 0.4 0.2-1.0 mg/dL Aspartate Amino Transf (AST/SGOT) 15 10-37 U/L Alanine Aminotransferase (ALT/SGPT) 15 12-78 U/L Alkaline Phosphatase 59 50-136 U/L Total Protein 6.1 6.0-8.3 g/dL Albumin 2.9 L 3.5-5.0 g/dL Hepatitis A IgM Antibody Non-Reactive Nonreactive Hepatitis B Surface Antigen. Non-Reactive Nonreactive Hepatitis B Core IgM Antibody Non-Reactive Negative Hepatitis C Antibody Non-Reactive Nonreactive DIAGNOSTICS / RADIOLOGY: PATIENT: GENIE GONZALES ACCT: [id number] LOC: [facility] U: [id number] AGE/SX: 74/M ROOM: [facility] RE10/18/[address]: RAJESH PUTNAM MD : 1950 BED: 1 DIS: STATUS: ADM IN TLOC: SPEC: [id number] JOE: 10/18/24 STATUS: RES REQ: [id number] RECD: 10/18/[address] [facility] [address]: DIANA BLACKP SOURCE: LEG ENTR: 10/18/24-[address] [facility] [address]: JUNIE KNOWLES MD SPDESC: LEFT RAJESH PUTNAM MD,ISABEL SHAW MD, PA-C ORDERED: AEROBIC CULTURE Procedure Result [place] Date-Time AEROBIC CULTURE Preliminary 10/20/24-1123 [facility] COLONY DESCRIPTION: REPORT 1: 2+ GRAM NEGATIVE RODS IDENTIFICATION AND SENSITIVITY TO FOLLOW Test(s) performed by: [facility] [address] [place] [address] ASSESSMENT: Chronic left leg ulcer with possible pyoderma gangrenosum, s/p debridement, skin biopsy and wound VAC placement. Left lower extremity cellulitis. Diabetes mellitus. Peripheral vascular disease. PLAN: Continue Zosyn. Continue vancomycin per pharmacy protocol. Continue IV steroids. We will follow up on the final culture results. Continue antidiabetics. Continue wound care as recommended by General surgery. Continue pain management. Continue GI prophylaxis. This case was reviewed and discussed with my supervising physician and the above assessment and plan was formulated and agreed upon. ATTESTATION BY PHYSICIAN I have seen and examined the patient. I reviewed the documentation, medical decision making, and treatment plan as noted by the mid-level provider above. I agree with the findings and plan of care. JUNIE KNOWLES MD, [facility] October 20, 2024 21:17
[2024-10-21] VITALS (8 sets, daily range): BP systolic 120–154; BP diastolic 58–85; PULSE 77–87; RESP 16–19; TEMP 97.4–98.3; O2SAT 97–100
[2024-10-21 05:18] LABS: BASOPHILS # (AUTO) 0.01 K/uL (0.00-0.20); BASOPHILS % (AUTO) 0.1 % (0.0-5.0); IMMATURE GRANULOCYTE ABSOLUTE 0.07 K/uL (0-1); LYMPHOCYTES # (AUTO) 1.1 K/uL (1.0-4.8); LYMPHOCYTES % (AUTO) 9.8 % (21.0-51.0); MEAN CORPUSCULAR HEMOGLOBIN 30.7 pg (27.0-33.0); MEAN CORPUSCULAR HGB CONC 33.3 g/dL (32.0-36.0); MEAN CORPUSCULAR VOLUME 92.1 fL (79-99); MONOCYTES # (AUTO) 0.1 K/uL (0.1-1.0); MONOCYTES % (AUTO) 0.8 % (3.0-13.0); NEUTROPHILS % (AUTO) 88.7 % (40.0-77.0); PLATELET COUNT (AUTO) 293 K/uL (130-400); RED BLOOD CELL COUNT(AUTO) 4.56 MIL/uL (4.50-6.20); RED CELL DISTRIBUTION WIDTH 12.2 % (11.0-15.5); WHITE BLOOD COUNT (AUTO) 11.3 K/uL (4.8-10.8)
[2024-10-21 05:32] LABS: CREATININE 0.7 mg/dL (0.5-1.3); MAGNESIUM 2.2 mg/dL (1.80-2.40); POTASSIUM 3.9 mmol/L (3.5-5.1)
--- NOTE | 2024-10-21 08:47 | NUR ---
MEDIHONEY NOT ADMINISTERED POST OPERATIVE DRESSING IS NOT TO BE REMOVED UNTIL WEDNESDAY PER WOUND CARE ORDER.
--- NOTE | 2024-10-21 10:40 | PN ---
[facility] PROGRESS NOTE Date of Service: October 21, 2024 Time of Service: 10:34 SUBJECTIVE: This is a 74 year old male with past medical history of PVD with PCI ,diabetes,hypertension ,GERD and hyperlipidemia who presents to the ED for complaints of severe pain to left leg ulcer and swelling and he noticed bloody drainage this afternoon so he decided to come to the ED for further evaluati on.Patient reports that this wound started since November 2023 and is doing medihoney dressing everyday but patient has not taken antibiotic.Patient states he had a stent placed by on both lower legs on 08/14/2024. Seen and examined patient in the Ed awake,alert and coherent appears uncomfortable complaints of left leg pain 8/10 pain level.Patient denies,fever,chills,nausea,vomiting,chest pain,palpitation and shortness of breath. Vital signs temperature 98.2 heart rate 72 blood pressure 161/75 saturation 98% on room air. Labs: Hemoglobin 13, hematocrit 41, platelet count 284. Glucose 281 calcitonin less than 0 point 0 five. X-ray of the left leg result revealed there is no acute displaced fracture or dislocation. There is soft tissue swelling. Vascular calcifications are seen. Small calcaneal spur is seen. Evaluation for osteomyelitis is limited with radiographs. Degenerative changes are seen. While in the ER patient received Zosyn IV, morphine 2 mg IV and Zofran 4 mg IV. We will admit patient for further medical management. 10/19/24 The patient was seen and examined today morning. His daughter is at the bedside. He is complaining on and off ulcer pain. Clinically, the ulcer looks like pyoderma gangrenosum. We will check hepatitis panel. Patient may have associated IBD. Infectious disease recommending general surgery and hem & onc. wound culture results pending. Arterial US showed atherosclerotic disease, abnormal monophasic arterial wave for seen in the left distal popliteal, left posterior tibial, anterior tibial and dorsalis pedal arteries with hyperemic flow. 10/20/24 patient was seen and evaluated. Patient underwent debridement of left leg ulcer. Aerobic culture showed 2+ Gram-negative rods, identification and sensitivity pending. Arterial ultrasound showed atherosclerotic disease. Abnormal monophasic waveforms in left distal popliteal, left posterior tibial, anterior tibial and dorsalis pedal arteries with hyperemic flow. We will consult Cardiology for peripheral arterial disease. Hepatitis B and C are nonreactive. Dr. Enciso started him on dexamethasone. Continue Plavix. 10/21/24: Patient was seen and evaluated this morning at bedside. Patient is POD #1 S/P debridement of left leg ulcer. Patient continues on Zosyn and Vancomycin, as per infectious disease recommendations. Pending cardiology recommendations for PAD. Patient continues on Dexamethasone per hematology recommendations. Patient denies bowel movement for 3 days, Miralax has been ordered. REVIEW OF SYSTEMS CONSTITUTIONAL: Denies fevers, chills, or night sweats. No unintentional weight loss reported. NEUROLOGICAL: Denies headache, amaurosis fugax, motor weakness, sensory deficit, vertigo/spinning sensation, gait abnormalities, or tremors. ENT: No hearing loss, otalgia, otorrhea, rhinitis, rhinorrhea, hoarseness, or sore throat. CARDIOVASCULAR: Denies any exertional angina, dyspnea on exertion, orthopnea, paroxysmal nocturnal dyspnea, palpitations, life-threatening arrhythmias, claudication. PULMONARY: Denies any shortness of breath, cough, phlegm/sputum, hemoptysis, pleuritic chest pain. SLEEP: Denies morning headaches, daytime somnolence or napping. Denies difficulty falling asleep, staying asleep, waking from sleep. Denies knowledge of snoring. GASTROINTESTINAL: Denies any type of dysphagia to either liquids or solids. Denies nausea, vomiting, pyrosis, early satiety, abdominal pain, diarrhea, constipation, or changes in stool consistency or caliber. Denies coffee-ground emesis, hematemesis, hematochezia, or melanotic stools. GENITOURINARY: Denies frequency, urgency, nocturia, hematuria or incontinence (Storage/Irritative symptoms.) Low urinary stream, straining to void, urinary intermittency or hesitancy, splitting of the voiding stream, terminal dribbling. ENDOCRINOLOGIC: Denies polyuria, polydipsia, polyphagia or heat/cold intolerances. HEMATOLOGIC: Denies thrombophilia/previous clots, or coagulopathy/bleeding disorders. ONCOLOGIC: Denies personal history of malignancy. DERMATOLOGIC: Denies rashes or pruritus. PSYCHIATRIC: Denies any suicidal or homicidal ideation. Denies hallucinations. PHYSICAL EXAM GENERAL APPEARANCE: The patient is awake, alert, and oriented, in no acute cardiopulmonary distress. NEUROLOGICAL: Cranial nerves II-XII grossly intact. Motor is 5/5 in bilateral upper and lower extremities proximal to distal. No sensory deficits. HEENT: Face is symmetric. Pupils are equal and reactive. Extraocular movements are intact. NECK: Supple. No JVD. No thyromegaly. No submental, submandibular, pre- /postauricular, occipital or supraclavicular lymphadenopathy. CHEST: Normal chest expansion. No Telemetry. LUNGS: Absence of any rales, rhonchi or any wheezing. CARDIOVASCULAR: Regular. S1 and S2 normal. No appreciable rubs, murmurs or gallops. ABDOMEN: Soft, nontender, and nondistended. There is no rebound, voluntary guarding, or rigidity. : Deferred. No Bonilla. EXTREMITIES: Non-edematous and not cyanotic. No clubbing. Good capillary refill. SKIN: Non healing wound ulcer to left leg. Vital Signs (last 8hr) Date Time Temp Pulse Resp B/P (MAP) Pulse Ox O2 Delivery O2 Flow Rate FiO2 10/21/24 08:59 100 Room Air* 0 21 10/21/24 08:00 97.5 85 19 153/73 100 Room Air 21 10/21/24 04:00 98.2 82 18 154/85 99 Room Air LABS: Laboratory: Test 10/21/24 05:15 10/21/24 04:42 10/20/24 08:18 Range/Units Whole Blood Glucose 252 H 70-110 MG/DL White Blood Count 11.3 H 4.8-10.8 K/uL Red Blood Count 4.56 4.50-6.20 MIL/uL Hemoglobin 14.0 14.0-18.0 g/dL Hematocrit 42.0 42-54 % Mean Corpuscular Volume 92.1 79-99 fL Mean Corpuscular Hemoglobin 30.7 27.0-33.0 pg Mean Corpuscular Hemoglobin Concent 33.3 32.0-36.0 g/dL Red Cell Distribution Width 12.2 11.0-15.5 % Platelet Count 293 130-400 K/uL Mean Platelet Volume 10.1 7.5-10.5 fL Immature Granulocyte % (Auto) 0.6 0-1 % Neutrophils (%) (Auto) 88.7 H 40.0-77.0 % Lymphocytes (%) (Auto) 9.8 L 21.0-51.0 % Monocytes (%) (Auto) 0.8 L 3.0-13.0 % Eosinophils (%) (Auto) 0.0 0.0-8.0 % Basophils (%) (Auto) 0.1 0.0-5.0 % Neutrophils # (Auto) 10.0 H 1.8-7.7 K/uL Lymphocytes # (Auto) 1.1 1.0-4.8 K/uL Monocytes # (Auto) 0.1 0.1-1.0 K/uL Eosinophils # (Auto) 0.00 0.00-0.70 K/uL Basophils # (Auto) 0.01 0.00-0.20 K/uL Absolute Immature Granulocyte (auto 0.07 0-1 K/uL Nucleated Red Blood Cells 0.0 0.0-0.19 % White Cell Morphology Comment See comments Sodium Level 139 136-145 mmol/L Potassium Level 3.9 3.5-5.1 mmol/L Chloride Level 106 101-111 mmol/L Carbon Dioxide Level 22 21-32 mmol/L Blood Urea Nitrogen 20 H 7-18 mg/dL Creatinine 0.7 0.5-1.3 mg/dL Glomerular Filtration Rate Calc 97 >90 mL/min Random Glucose 237 H 70-105 mg/dL Total Calcium 8.5 8.5-10.1 mg/dL Magnesium Level 2.20 1.80-2.40 mg/dL Vancomycin Level Trough 11.0 10.0-20.0 UG/ML Current Medications Medications (Trade) Dose Ordered Sig/Dorinda Route PRN Reason Start Time Stop Time Status Last Admin Dose Admin Acetaminophen (TYLenol 325MG TAB) 650 mg Q4H PRN PO MILD PAIN (1-3) 10/18/24 20:00 11/17/24 19:59 Acetaminophen (TYLenol 325MG TAB) 650 mg Q6H PRN PO TEMPERATURE GREATER THAN 101.5 10/18/24 20:00 11/17/24 19:59 Acetaminophen/ Codeine Phosphate (TYLenol-coDEINE TAB) 2 tab Q6H PRN PO SEVERE PAIN (7-10) 10/19/24 09:30 11/18/24 09:29 10/19/24 16:45 2 TAB Atorvastatin Calcium (LIPItor 10MG) 5 mg HS PO 10/19/24 21:00 11/18/24 20:59 10/20/24 20:42 5 MG Clopidogrel Bisulfate (plaVIX 75MG) 75 mg DAILY PO 10/20/24 09:00 11/19/24 08:59 10/21/24 08:45 75 MG Dexamethasone Sodium Phosphate (dexaMETHasone 4MG/ML 1ML VIAL) 20 mg Q24H IV 10/20/24 13:30 10/20/24 13:23 DC Dexamethasone Sodium Phosphate 20 mg/Sodium Chloride 50 ml @ 100 mls/hr Q24H IV 10/20/24 14:00 11/19/24 13:59 10/20/24 17:09 100 MLS/HR Dextrose (D50w) 50 ml AD PRN IV HYPOGLYCEMIA PROTOCOL 10/18/24 20:00 11/17/24 19:59 Enoxaparin Sodium (Lovenox) 30 mg DAILY SQ 10/19/24 16:00 11/18/24 15:59 10/21/24 08:46 30 MG Famotidine (Pepcid 20mg Tab) 20 mg BID PO 10/18/24 21:00 11/17/24 20:59 10/21/24 08:46 20 MG Gabapentin (NEURontin 100 mg CAP) 100 mg TID PO 10/19/24 21:00 11/18/24 20:59 10/21/24 08:45 100 MG Glucagon (Glucagon 1mg Kit) 1 mg AD PRN IM HYPOGLYCEMIA PROTOCOL 10/18/24 20:00 11/17/24 19:59 Hydrochlorothiazide (hydroCHLOROthiazide 25MG) 12.5 mg DAILY PO 10/20/24 09:00 11/19/24 08:59 10/21/24 08:46 12.5 MG Hydromorphone HCl (DiLAUDid 1MG INJ) 1 mg Q3H3 PRN IVP SEVERE PAIN (7-10) 10/20/24 11:30 10/25/24 11:29 Insulin Glargine (LANtus 100 UNITS/ML 10 ML VIAL) 20 units HS SQ 10/19/24 21:00 11/18/24 20:59 10/20/24 20:52 20 UNITS Insulin Human Regular (humuLIN R 100 UNIT/ML 3ML) INSULIN SLIDING SCAL... ACHS SQ 10/18/24 21:00 11/17/24 20:59 10/21/24 06:54 5 UNIT Leptospermum Honey (Squirrohosteger) 1 appl DAILY TP 10/20/24 09:00 11/19/24 08:59 10/20/24 07:40 1 APPL Losartan Potassium (CozAAR 25MG TAB) 25 mg DAILY PO 10/20/24 09:00 11/19/24 08:59 10/21/24 08:46 25 MG Magnesium Sulfate 50 ml @ 0 mls/hr PROTOCOL PRN IV OTHER [SEE ORDER COMMENTS] 10/18/24 20:00 11/17/24 19:59 Morphine Sulfate (morPHINE 2MG SYG) 2 mg ONCE STAT IVP 10/18/24 19:33 10/18/24 19:38 DC 10/18/24 20:04 2 MG Morphine Sulfate (morPHINE 2MG SYG) 2 mg Q4H PRN IV MODERATE PAIN (4-6) 10/18/24 20:00 10/25/24 19:59 10/21/24 08:47 2 MG Multivitamins Therapeutic (Multivitamin Tablet) 1 tab DAILY PO 10/20/24 09:00 11/19/24 08:59 10/21/24 08:46 1 TAB Ondansetron HCl (zoFRAN 4MG INJ) 4 mg ONCE STAT IVP 10/18/24 19:33 10/18/24 19:38 DC 10/18/24 20:04 4 MG Ondansetron HCl (zoFRAN 4MG INJ) 4 mg Q6H PRN IV NAUSEA/VOMITING 10/18/24 20:00 11/17/24 19:59 10/20/24 02:40 4 MG Oxycodone/ Acetaminophen (perCOCET) 1 tab Q4H PRN PO SEVERE PAIN (7-10) 10/20/24 11:30 10/27/24 11:29 Piperacillin Sod/ Tazobactam Sod 50 ml @ 12.5 mls/hr Q8H IV 10/19/24 04:00 10/29/24 03:59 10/21/24 03:01 12.5 MLS/HR Piperacillin Sod/ Tazobactam Sod (Zosyn 3.375gm+NS 50ml) 3.375 gm ONCE STAT IV 10/18/24 19:31 10/18/24 19:38 DC 10/18/24 20:04 3.375 GM Potassium Chloride 100 ml @ 100 mls/hr AD PRN IV POTASSIUM PROTOCOL 10/18/24 20:00 11/17/24 19:59 Potassium Chloride (K-Dur/Klor-Con 20meq) 20 meq AD PRN PO POTASSIUM PROTOCOL 10/18/24 20:00 11/17/24 19:59 Potassium Chloride (KCl 10% Elixir 20meq/15ml) 20 meq AD PRN PO POTASSIUM PROTOCOL 10/18/24 20:00 11/17/24 19:59 Vancomycin HCl 250 ml @ 125 mls/hr ONCE IV 10/18/24 20:00 10/18/24 20:20 DC Vancomycin HCl (Vancomycin 750mg) 750 mg Q12H IVPB 10/19/24 09:00 10/29/24 08:59 10/21/24 08:44 750 MG Vancomycin HCl (Vancomycin Protocol) 1 each AD IV 10/18/24 20:30 11/01/24 20:29 DIAGNOSTICS / RADIOLOGY: [ ] ASSESSMENT: Suspected Pyoderma Gangrenosum Diabetic leg ulcer with 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 Continue on heart healthy and consistent carb diet Suspected Pyoderma Gangrenosum Clinically, the ulcer looks like pyoderma gangrenosum. Hepatitis panel nonreactive. Infectious disease consult appreciated, who recommended to continue with IV Vancomycin. ID consulted General Surgery and Hematology. General surgery consult appreciated and did debridement of left lower leg on 10/20/24. Hematology consult appreciated and started him on IV dexamethasone 20 mg 50 ml @ 100 ml/hour. 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 Continue IV vancomycin and IV zosyn. Aerobic wound culture is positive for 2+ Gram-negative rods. Identification and sensitivity pending. History of PVD with PCI Continue Clopidogrel. Arterial ultrasound showed atherosclerotic disease. Abnormal monophasic waveforms in left distal popliteal, left posterior tibial, anterior tibial and dorsalis pedal arteries with hyperemic flow. Consultation with Cardiology requested and we will follow their recommendations. Uncontrolled diabetes POA Continue glucose checks AC & HS. Follow insulin sliding scale with hypoglycemia protocol HbA1c is 10.3% on admission. Continue on home dose insulin Lantus 24 U HS. Gabapentin 100 mg TID. Hypertension POA Continue home medication Losartan and hydrochlorothiazide. Hyperlipidemia POA Continue home medication Pravastatin 20 mg. Lovenox 30 mg SQ daily for DVT prophylaxis Famotidine 20 mg p.o. bid for GI prophylaxis PRN medication for fever,pain,cough ,nausea and vomiting. RIVER LEVY MD October 21, 2024 10:40
[2024-10-21] MEDS ORDERED: COMPOUND IV REFRIGERATED 1 EACH IVSOLN MISC PRN (11:30)
[2024-10-21] MEDS: PoTASSium chloRIDE 20MEQ ER 20 MEQ ERTAB PO PRN (11:46)
[2024-10-21] MEDS: polyETHYLene GLYCol 3350 17 GM POWD.PACK PO ONE (11:46)
[2024-10-21] MEDS: hydroMORPHone 1 MG INJ IVP PRN (18:56)
[2024-10-21] MEDS: VANCOMYCIN 1G/250ML KIT 250 ML IV SCH (21:48)
[2024-10-22] VITALS (9 sets, daily range): BP systolic 111–152; BP diastolic 54–73; PULSE 68–81; RESP 17–20; TEMP 97.8–99; O2SAT 98
[2024-10-22 04:47] LABS: BASOPHILS # (AUTO) 0.02 K/uL (0.00-0.20); BASOPHILS % (AUTO) 0.1 % (0.0-5.0); HEMATOCRIT 41.5 % (42-54); IMMATURE GRANULOCYTE ABSOLUTE 0.07 K/uL (0-1); LYMPHOCYTES # (AUTO) 1.1 K/uL (1.0-4.8); MEAN CORPUSCULAR HGB CONC 33.7 g/dL (32.0-36.0); MEAN CORPUSCULAR VOLUME 91.8 fL (79-99); MONOCYTES # (AUTO) 0.2 K/uL (0.1-1.0); NEUTROPHILS # (AUTO) 13.9 K/uL (1.8-7.7); NEUTROPHILS % (AUTO) 91.4 % (40.0-77.0); PLATELET COUNT (AUTO) 316 K/uL (130-400); RED BLOOD CELL COUNT(AUTO) 4.52 MIL/uL (4.50-6.20); RED CELL DISTRIBUTION WIDTH 12.4 % (11.0-15.5); WHITE BLOOD COUNT (AUTO) 15.2 K/uL (4.8-10.8)
[2024-10-22 05:07] LABS: ALBUMIN 2.9 g/dL (3.5-5.0); BILIRUBIN,TOTAL 0.3 mg/dL (0.2-1.0); CREATININE 0.8 mg/dL (0.5-1.3); POTASSIUM 4.2 mmol/L (3.5-5.1); TOTAL PROTEIN, SERUM 6.9 g/dL (6.0-8.3)
--- NOTE | 2024-10-22 09:30 | NUR ---
MEDIHONEY NOT ADMINISTERED DRESSING IS NOT TO BE REMOVED UNTIL WEDNESDAY.
[2024-10-22] MEDS: oxyCODONE/aceTAMIN 5/325MG TAB PO PRN (09:31)
--- NOTE | 2024-10-22 11:00 | PN ---
[facility] PROGRESS NOTE Date of Service: October 22, 2024 Time of Service: 11:00 SUBJECTIVE: This is a 74 year old male with past medical history of PVD with PCI ,diabetes,hypertension ,GERD and hyperlipidemia who presents to the ED for complaints of severe pain to left leg ulcer and swelling and he noticed bloody drainage this afternoon so he decided to come to the ED for further evaluati on.Patient reports that this wound started since November 2023 and is doing medihoney dressing everyday but patient has not taken antibiotic.Patient states he had a stent placed by on both lower legs on 08/14/2024. Seen and examined patient in the Ed awake,alert and coherent appears uncomfortable complaints of left leg pain 8/10 pain level.Patient denies,fever,chills,nausea,vomiting,chest pain,palpitation and shortness of breath. Vital signs temperature 98.2 heart rate 72 blood pressure 161/75 saturation 98% on room air. Labs: Hemoglobin 13, hematocrit 41, platelet count 284. Glucose 281 calcitonin less than 0 point 0 five. X-ray of the left leg result revealed there is no acute displaced fracture or dislocation. There is soft tissue swelling. Vascular calcifications are seen. Small calcaneal spur is seen. Evaluation for osteomyelitis is limited with radiographs. Degenerative changes are seen. While in the ER patient received Zosyn IV, morphine 2 mg IV and Zofran 4 mg IV. We will admit patient for further medical management. 10/19/24 The patient was seen and examined today morning. His daughter is at the bedside. He is complaining on and off ulcer pain. Clinically, the ulcer looks like pyoderma gangrenosum. We will check hepatitis panel. Patient may have associated IBD. Infectious disease recommending general surgery and hem & onc. wound culture results pending. Arterial US showed atherosclerotic disease, abnormal monophasic arterial wave for seen in the left distal popliteal, left posterior tibial, anterior tibial and dorsalis pedal arteries with hyperemic flow. 10/20/24 patient was seen and evaluated. Patient underwent debridement of left leg ulcer. Aerobic culture showed 2+ Gram-negative rods, identification and sensitivity pending. Arterial ultrasound showed atherosclerotic disease. Abnormal monophasic waveforms in left distal popliteal, left posterior tibial, anterior tibial and dorsalis pedal arteries with hyperemic flow. We will consult Cardiology for peripheral arterial disease. Hepatitis B and C are nonreactive. Dr. Enciso started him on dexamethasone. Continue Plavix. 10/21/24: Patient was seen and evaluated this morning at bedside. Patient is POD #1 S/P debridement of left leg ulcer. Patient continues on Zosyn and Vancomycin, as per infectious disease recommendations. Pending cardiology recommendations for PAD. Patient continues on Dexamethasone per hematology recommendations. Patient denies bowel movement for 3 days, Miralax has been ordered. 10/22/2024 Patient is seen and examined at the bedside. He is postop day 2 s/p debridement of left leg ulcer. Vitals blood pressure 152/72. He complains of moderate pain in his left lower extremity. He did not have a bowel movement yet, lactulose has been ordered. Labs WBC increased from 11.3-15.2, glucose 210. aerobic cultures of the left leg ulcer resulted in E coli, Enterococcus faecalis and Proteus mirabilis. Pending cardiology consult. REVIEW OF SYSTEMS CONSTITUTIONAL: Denies fevers, chills, or night sweats. No unintentional weight loss reported. NEUROLOGICAL: Denies headache, amaurosis fugax, motor weakness, sensory deficit, vertigo/spinning sensation, gait abnormalities, or tremors. ENT: No hearing loss, otalgia, otorrhea, rhinitis, rhinorrhea, hoarseness, or sore throat. CARDIOVASCULAR: Denies any exertional angina, dyspnea on exertion, orthopnea, paroxysmal nocturnal dyspnea, palpitations, life-threatening arrhythmias, claudication. PULMONARY: Denies any shortness of breath, cough, phlegm/sputum, hemoptysis, pleuritic chest pain. SLEEP: Denies morning headaches, daytime somnolence or napping. Denies difficulty falling asleep, staying asleep, waking from sleep. Denies knowledge of snoring. GASTROINTESTINAL: Denies any type of dysphagia to either liquids or solids. Denies nausea, vomiting, pyrosis, early satiety, abdominal pain, diarrhea, constipation, or changes in stool consistency or caliber. Denies coffee-ground emesis, hematemesis, hematochezia, or melanotic stools. GENITOURINARY: Denies frequency, urgency, nocturia, hematuria or incontinence (Storage/Irritative symptoms.) Low urinary stream, straining to void, urinary intermittency or hesitancy, splitting of the voiding stream, terminal dribbling. ENDOCRINOLOGIC: Denies polyuria, polydipsia, polyphagia or heat/cold intolerances. HEMATOLOGIC: Denies thrombophilia/previous clots, or coagulopathy/bleeding disorders. ONCOLOGIC: Denies personal history of malignancy. DERMATOLOGIC: Denies rashes or pruritus. PSYCHIATRIC: Denies any suicidal or homicidal ideation. Denies hallucinations. PHYSICAL EXAM GENERAL APPEARANCE: The patient is awake, alert, and oriented, in no acute cardiopulmonary distress. NEUROLOGICAL: Cranial nerves II-XII grossly intact. Motor is 5/5 in bilateral upper and lower extremities proximal to distal. No sensory deficits. HEENT: Face is symmetric. Pupils are equal and reactive. Extraocular movements are intact. NECK: Supple. No JVD. No thyromegaly. No submental, submandibular, pre- /postauricular, occipital or supraclavicular lymphadenopathy. CHEST: Normal chest expansion. No Telemetry. LUNGS: Absence of any rales, rhonchi or any wheezing. CARDIOVASCULAR: Regular. S1 and S2 normal. No appreciable rubs, murmurs or gallops. ABDOMEN: Soft, nontender, and nondistended. There is no rebound, voluntary guarding, or rigidity. : Deferred. No Bonilla. EXTREMITIES: Non-edematous and not cyanotic. No clubbing. Good capillary refill. SKIN: Non healing wound ulcer to left leg. Vital Signs (last 8hr) Date Time Temp Pulse Resp B/P (MAP) Pulse Ox O2 Delivery O2 Flow Rate FiO2 10/22/24 08:00 98.1 81 19 152/72 98 Room Air 21 10/22/24 04:00 97.9 69 20 133/73 94 Room Air LABS: Laboratory: Test 10/22/24 05:11 10/22/24 04:23 10/21/24 20:14 10/21/24 04:42 Range/Units Whole Blood Glucose 210 H 70-110 MG/DL White Blood Count 15.2 #H 4.8-10.8 K/uL Red Blood Count 4.52 4.50-6.20 MIL/uL Hemoglobin 14.0 14.0-18.0 g/dL Hematocrit 41.5 L 42-54 % Mean Corpuscular Volume 91.8 79-99 fL Mean Corpuscular Hemoglobin 31.0 27.0-33.0 pg Mean Corpuscular Hemoglobin Concent 33.7 32.0-36.0 g/dL Red Cell Distribution Width 12.4 11.0-15.5 % Platelet Count 316 130-400 K/uL Mean Platelet Volume 10.2 7.5-10.5 fL Immature Granulocyte % (Auto) 0.5 0-1 % Neutrophils (%) (Auto) 91.4 H 40.0-77.0 % Lymphocytes (%) (Auto) 7.0 L 21.0-51.0 % Monocytes (%) (Auto) 1.0 L 3.0-13.0 % Eosinophils (%) (Auto) 0.0 0.0-8.0 % Basophils (%) (Auto) 0.1 0.0-5.0 % Neutrophils # (Auto) 13.9 H 1.8-7.7 K/uL Lymphocytes # (Auto) 1.1 1.0-4.8 K/uL Monocytes # (Auto) 0.2 0.1-1.0 K/uL Eosinophils # (Auto) 0.00 0.00-0.70 K/uL Basophils # (Auto) 0.02 0.00-0.20 K/uL Absolute Immature Granulocyte (auto 0.07 0-1 K/uL Nucleated Red Blood Cells 0.0 0.0-0.19 % Sodium Level 138 136-145 mmol/L Potassium Level 4.2 3.5-5.1 mmol/L Chloride Level 103 101-111 mmol/L Carbon Dioxide Level 26 21-32 mmol/L Blood Urea Nitrogen 23 H 7-18 mg/dL Creatinine 0.8 0.5-1.3 mg/dL Glomerular Filtration Rate Calc 93 >90 mL/min Random Glucose 234 H 70-105 mg/dL Total Calcium 9.1 8.5-10.1 mg/dL Total Bilirubin 0.3 0.2-1.0 mg/dL Aspartate Amino Transf (AST/SGOT) 15 10-37 U/L Alanine Aminotransferase (ALT/SGPT) 18 12-78 U/L Alkaline Phosphatase 67 50-136 U/L C-Reactive Protein, Quantitative 2.70 0.5-3.0 mg/L Total Protein 6.9 6.0-8.3 g/dL Albumin 2.9 L 3.5-5.0 g/dL Vancomycin Level Trough 8.2 #L 10.0-20.0 UG/ML White Cell Morphology Comment See comments Magnesium Level 2.20 1.80-2.40 mg/dL Current Medications Medications (Trade) Dose Ordered Sig/Dorinda Route PRN Reason Start Time Stop Time Status Last Admin Dose Admin Acetaminophen (TYLenol 325MG TAB) 650 mg Q4H PRN PO MILD PAIN (1-3) 10/18/24 20:00 11/17/24 19:59 Acetaminophen (TYLenol 325MG TAB) 650 mg Q6H PRN PO TEMPERATURE GREATER THAN 101.5 10/18/24 20:00 11/17/24 19:59 Acetaminophen/ Codeine Phosphate (TYLenol-coDEINE TAB) 2 tab Q6H PRN PO SEVERE PAIN (7-10) 10/19/24 09:30 11/18/24 09:29 10/19/24 16:45 2 TAB Atorvastatin Calcium (LIPItor 10MG) 5 mg HS PO 10/19/24 21:00 11/18/24 20:59 10/21/24 21:49 5 MG Clopidogrel Bisulfate (plaVIX 75MG) 75 mg DAILY PO 10/20/24 09:00 11/19/24 08:59 10/22/24 09:32 75 MG Dexamethasone Sodium Phosphate (dexaMETHasone 4MG/ML 1ML VIAL) 20 mg Q24H IV 10/20/24 13:30 10/20/24 13:23 DC Dexamethasone Sodium Phosphate 20 mg/Sodium Chloride 50 ml @ 100 mls/hr Q24H IV 10/20/24 14:00 11/19/24 13:59 10/21/24 14:50 100 MLS/HR Dextrose (D50w) 50 ml AD PRN IV HYPOGLYCEMIA PROTOCOL 10/18/24 20:00 11/17/24 19:59 Enoxaparin Sodium (Lovenox) 30 mg DAILY SQ 10/19/24 16:00 11/18/24 15:59 10/22/24 09:33 30 MG Famotidine (Pepcid 20mg Tab) 20 mg BID PO 10/18/24 21:00 11/17/24 20:59 10/22/24 09:31 20 MG Gabapentin (NEURontin 100 mg CAP) 100 mg TID PO 10/19/24 21:00 11/18/24 20:59 10/22/24 09:32 100 MG Glucagon (Glucagon 1mg Kit) 1 mg AD PRN IM HYPOGLYCEMIA PROTOCOL 10/18/24 20:00 11/17/24 19:59 Hydrochlorothiazide (hydroCHLOROthiazide 25MG) 12.5 mg DAILY PO 10/20/24 09:00 11/19/24 08:59 10/22/24 09:31 12.5 MG Hydromorphone HCl (DiLAUDid 1MG INJ) 1 mg Q3H3 PRN IVP SEVERE PAIN (7-10) 10/20/24 11:30 10/25/24 11:29 10/21/24 18:56 1 MG Insulin Glargine (LANtus 100 UNITS/ML 10 ML VIAL) 20 units HS SQ 10/19/24 21:00 11/18/24 20:59 10/21/24 21:57 20 UNITS Insulin Human Regular (humuLIN R 100 UNIT/ML 3ML) INSULIN SLIDING SCAL... ACHS SQ 10/18/24 21:00 11/17/24 20:59 10/22/24 06:50 3 UNIT Leptospermum Honey ([facility]) 1 appl DAILY TP 10/20/24 09:00 11/19/24 08:59 10/20/24 07:40 1 APPL Losartan Potassium (CozAAR 25MG TAB) 25 mg DAILY PO 10/20/24 09:00 11/19/24 08:59 10/22/24 09:31 25 MG Magnesium Sulfate 50 ml @ 0 mls/hr PROTOCOL PRN IV OTHER [SEE ORDER COMMENTS] 10/18/24 20:00 11/17/24 19:59 Morphine Sulfate (morPHINE 2MG SYG) 2 mg ONCE STAT IVP 10/18/24 19:33 10/18/24 19:38 DC 10/18/24 20:04 2 MG Morphine Sulfate (morPHINE 2MG SYG) 2 mg Q4H PRN IV MODERATE PAIN (4-6) 10/18/24 20:00 10/25/24 19:59 10/22/24 04:13 2 MG Multivitamins Therapeutic (Multivitamin Tablet) 1 tab DAILY PO 10/20/24 09:00 11/19/24 08:59 10/22/24 09:31 1 TAB Ondansetron HCl (zoFRAN 4MG INJ) 4 mg ONCE STAT IVP 10/18/24 19:33 10/18/24 19:38 DC 10/18/24 20:04 4 MG Ondansetron HCl (zoFRAN 4MG INJ) 4 mg Q6H PRN IV NAUSEA/VOMITING 10/18/24 20:00 11/17/24 19:59 10/20/24 02:40 4 MG Oxycodone/ Acetaminophen (perCOCET) 1 tab Q4H PRN PO SEVERE PAIN (7-10) 10/20/24 11:30 10/27/24 11:29 10/22/24 09:31 1 TAB Piperacillin Sod/ Tazobactam Sod 50 ml @ 12.5 mls/hr Q8H IV 10/19/24 04:00 10/29/24 03:59 10/22/24 04:13 12.5 MLS/HR Piperacillin Sod/ Tazobactam Sod (Zosyn 3.375gm+NS 50ml) 3.375 gm ONCE STAT IV 10/18/24 19:31 10/18/24 19:38 DC 10/18/24 20:04 3.375 GM Potassium Chloride 100 ml @ 100 mls/hr AD PRN IV POTASSIUM PROTOCOL 10/18/24 20:00 11/17/24 19:59 Potassium Chloride (K-Dur/Klor-Con 20meq) 20 meq AD PRN PO POTASSIUM PROTOCOL 10/18/24 20:00 11/17/24 19:59 10/21/24 14:53 20 MEQ Potassium Chloride (KCl 10% Elixir 20meq/15ml) 20 meq AD PRN PO POTASSIUM PROTOCOL 10/18/24 20:00 11/17/24 19:59 Vancomycin HCl 250 ml @ 125 mls/hr ONCE IV 10/18/24 20:00 10/18/24 20:20 DC Vancomycin HCl 250 ml @ 125 mls/hr Q12H IV 10/21/24 21:00 10/31/24 20:59 10/22/24 09:32 125 MLS/HR Vancomycin HCl (Vancomycin 750mg) 750 mg Q12H IVPB 10/19/24 09:00 10/21/24 21:00 DC 10/21/24 08:44 750 MG Vancomycin HCl (Vancomycin Protocol) 1 each AD IV 10/18/24 20:30 11/01/24 20:29 DIAGNOSTICS / RADIOLOGY: [ ] ASSESSMENT: Chronic left leg ulcer with suspected pyoderma gangrenosum, s/p debridement, s kin biopsy and wound VAC placement. Left lower extremity cellulitis. Diabetic leg ulcer with 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 Continue on heart healthy and consistent carb diet Suspected Pyoderma Gangrenosum Clinically, the ulcer looks like pyoderma gangrenosum. Hepatitis panel nonreactive. Continue IV Vancomycin and Zosyn as per ID consult recommendation Patient had undergone debridement of left lower leg on 10/20/24 by general surgery consult. Started the patient on IV dexamethasone 20 mg 50 ml @ 100 ml/hour as per Hematology consult recommendation Diabetic leg ulcer with suspected infection and necrosis POA Wound management consult appreciated and we will follow their recommendations. Continue IV vancomycin and IV zosyn. Aerobic wound culture showed an E coli, Enterococcus faecalis, Proteus mirabilis History of PVD with PCI Continue Clopidogrel. Arterial ultrasound showed atherosclerotic disease. Abnormal monophasic waveforms in left distal popliteal, left posterior tibial, anterior tibial and dorsalis pedal arteries with hyperemic flow. Consultation with Cardiology requested and we will follow their recommendations. Uncontrolled diabetes POA Continue glucose checks AC & HS. Follow insulin sliding scale with hypoglycemia protocol HbA1c is 10.3% on admission. Continue on home dose insulin Lantus 20 U HS. Gabapentin 100 mg TID. Hypertension POA Continue home medication Losartan and hydrochlorothiazide. Hyperlipidemia POA Continue atorvastatin 5 mg Lovenox 30 mg SQ daily for DVT prophylaxis Famotidine 20 mg p.o. bid for GI prophylaxis PRN medication for fever,pain,cough ,nausea and vomiting. ATTESTATION BY PHYSICIAN I have seen and examined the patient. I reviewed the documentation, medical decision making, and treatment plan as noted by the resident above. I agree with the findings and plan of care. EVA HENRY MD, PRIYANKA MD October 22, 2024 11:00
[2024-10-22] MEDS: LACTULOSE 20 GM/30 ML UDCUP PO ONE (12:13)
--- NOTE | 2024-10-22 15:20 | CONS ---
[facility] CARDIOLOGY CONSULTATION REPORT Cardiology consultation note dictated for Agnes Castro MD Date Patient Seen: October 22, 2024 Requesting Physician: Blanquita Dyer MD Reason for Consultation: PAD History of Present Illness: This is a 74-year-old male with a past medical history of hypertension, hyperlipidemia, diabetes mellitus type 2, PAD s/p RLE PVI x1 and LLE PVI x2 with the latest done in July 2024 by the PAD specialist in [place], [place] who presented to the ED for further evaluation of left calf ulceration. He was diagnosed with LLE cellulitis. Left lower extremity venous Doppler on 10/18/2024 ruled out DVT. He is status post debridement and drainage of infected left leg wound with skin and fat biopsy and wound VAC placement on 10/20/[address] Betancourt. Cardiology has been consulted for PAD. The patient admitted to a nonhealing left calf ulceration that occurred due to wearing cowboy boots approximately 1 year ago. Left lower extremity arterial Doppler on 10/18/2024 demonstrated abnormal monophasic waveforms in the left distal popliteal, left posterior tibial, anterior tibial and dorsalis pedal arteries with hyperemic flow. Normal triphasic and biphasic arterial waveforms are noted in the left common femoral, deep femoral, superficial femoral and popliteal arteries. The patient underwent a left lower extremity peripheral angiogram in 07/2024 by the PAD specialists in [place], [place]. Past Medical History: As per HPI and summarized below Past Surgical History: Facial reconstruction Family History: Noncontributory Social History: The patient lives with family. Habits: The patient denies alcohol, tobacco, or illicit drug use. Home Meds: Tylenol No. 2 every 6 hours p.r.n. pain Clopidogrel 75 mg daily Pravastatin 20 mg daily Losartan 25 mg daily Hydrochlorothiazide 12.5 mg daily Lantus insulin 40 units subQ q.h.s. Farxiga 10 mg daily Multivitamin daily Current Meds: Current Medications Medications Dose Ordered Sig/Dorinda Start Time Stop Time Status Last Admin Acetaminophen 650 mg Q6H PRN 10/18/24 20:00 11/17/24 19:59 Acetaminophen 650 mg Q4H PRN 10/18/24 20:00 11/17/24 19:59 Ondansetron HCl 4 mg Q6H PRN 10/18/24 20:00 11/17/24 19:59 10/20/24 02:40 Famotidine 20 mg BID 10/18/24 21:00 11/17/24 20:59 10/22/24 09:31 Piperacillin Sod/ Tazobactam Sod 50 ml @ 12.5 mls/hr Q8H 10/19/24 04:00 10/29/24 03:59 10/22/24 12:13 Morphine Sulfate 2 mg Q4H PRN 10/18/24 20:00 10/25/24 19:59 10/22/24 04:13 Magnesium Sulfate 50 ml @ 0 mls/hr PROTOCOL PRN 10/18/24 20:00 11/17/24 19:59 Potassium Chloride 100 ml @ 100 mls/hr AD PRN 10/18/24 20:00 11/17/24 19:59 Potassium Chloride 20 meq AD PRN 10/18/24 20:00 11/17/24 19:59 Potassium Chloride 20 meq AD PRN 10/18/24 20:00 11/17/24 19:59 10/21/24 14:53 Insulin Human Regular INSULIN SLIDING SCAL... ACHS 10/18/24 21:00 11/17/24 20:59 10/22/24 12:20 Dextrose 50 ml AD PRN 10/18/24 20:00 11/17/24 19:59 Glucagon 1 mg AD PRN 10/18/24 20:00 11/17/24 19:59 Vancomycin HCl 1 each AD 10/18/24 20:30 11/01/24 20:29 Clopidogrel Bisulfate 75 mg DAILY 10/20/24 09:00 11/19/24 08:59 10/22/24 09:32 Losartan Potassium 25 mg DAILY 10/20/24 09:00 11/19/24 08:59 10/22/24 09:31 Multivitamins Therapeutic 1 tab DAILY 10/20/24 09:00 11/19/24 08:59 10/22/24 09:31 Acetaminophen/ Codeine Phosphate 2 tab Q6H PRN 10/19/24 09:30 11/18/24 09:29 10/19/24 16:45 Hydrochlorothiazide 12.5 mg DAILY 10/20/24 09:00 11/19/24 08:59 10/22/24 09:31 Atorvastatin Calcium 5 mg HS 10/19/24 21:00 11/18/24 20:59 10/21/24 21:49 Enoxaparin Sodium 30 mg DAILY 10/19/24 16:00 11/18/24 15:59 10/22/24 09:33 Gabapentin 100 mg TID 10/19/24 21:00 11/18/24 20:59 10/22/24 15:05 Insulin Glargine 20 units HS 10/19/24 21:00 11/18/24 20:59 10/21/24 21:57 Leptospermum Honey 1 appl DAILY 10/20/24 09:00 11/19/24 08:59 10/20/24 07:40 Hydromorphone HCl 1 mg Q3H3 PRN 10/20/24 11:30 10/25/24 11:29 10/21/24 18:56 Oxycodone/ Acetaminophen 1 tab Q4H PRN 10/20/24 11:30 10/27/24 11:29 10/22/24 09:31 Dexamethasone Sodium Phosphate 20 mg/Sodium Chloride 50 ml @ 100 mls/hr Q24H 10/20/24 14:00 11/19/24 13:59 10/22/24 15:05 Vancomycin HCl 250 ml @ 125 mls/hr Q12H 10/21/24 21:00 10/31/24 20:59 10/22/24 09:32 Review of Systems: CONST: No fever, fatigue, or weight changes. EYES: No recent vision problems. ENT: No congestion, ear pain, or sore throat. C/V: No chest pain, palpitations, or edema. RESP: No cough, congestion, wheezing or shortness of breath. GI: No abdominal pain, nausea, vomiting, constipation, or diarrhea. : No incontinence or dysuria. SKIN: No rash. NEURO: No headache, focal numbness or weakness, dizziness, or seizures. PSYCH: No depression or anxiety. HEME: No abnormal bruising or bleeding. LYMPH: No swollen glands. Physical Examination: GENERAL: No acute distress. HEAD: Normal with no signs of head trauma. EYES: PERRLA, EOMI, conjunctiva and sclera normal. ENT: Hearing grossly intact, normal oropharynx. NECK: Supple without JVD. There is no tenderness, lymphadenopathy, or masses. No thyromegaly. Normal carotid upstrokes without bruits. LUNGS: Clear breath sounds bilaterally. No wheezes, or rhonchi. HEART: Normal rate and rhythm. Normal S1 and S2 without murmurs, gallop or rub. VASC: Unable to palpate bilateral AT or PT pulses ABD: Bowel sounds normal, soft, nontender, no masses, no organomegaly. No audible bruits. : Not examined LYMPH: No lymphadenopathy noted. EXT: No clubbing, cyanosis or edema. SKIN: Left calf with wound vac in place NEURO: Awake, alert, and oriented x3. No focal sensory or strength deficits noted. Vital Signs (last 8hr) Date Time Temp Pulse Resp B/P (MAP) Pulse Ox O2 Delivery O2 Flow Rate FiO2 10/22/24 11:57 97.9 71 20 131/57 96 Room Air 21 10/22/24 08:00 98.1 81 19 152/72 98 Room Air 21 Laboratory: Hematology Labs: Test 10/22/24 04:23 10/21/24 04:42 Range/Units White Blood Count 15.2 #H 4.8-10.8 K/uL Red Blood Count 4.52 4.50-6.20 MIL/uL Hemoglobin 14.0 14.0-18.0 g/dL Hematocrit 41.5 L 42-54 % Mean Corpuscular Volume 91.8 79-99 fL Mean Corpuscular Hemoglobin 31.0 27.0-33.0 pg Mean Corpuscular Hemoglobin Concent 33.7 32.0-36.0 g/dL Red Cell Distribution Width 12.4 11.0-15.5 % Platelet Count 316 130-400 K/uL Mean Platelet Volume 10.2 7.5-10.5 fL Immature Granulocyte % (Auto) 0.5 0-1 % Neutrophils (%) (Auto) 91.4 H 40.0-77.0 % Lymphocytes (%) (Auto) 7.0 L 21.0-51.0 % Monocytes (%) (Auto) 1.0 L 3.0-13.0 % Eosinophils (%) (Auto) 0.0 0.0-8.0 % Basophils (%) (Auto) 0.1 0.0-5.0 % Neutrophils # (Auto) 13.9 H 1.8-7.7 K/uL Lymphocytes # (Auto) 1.1 1.0-4.8 K/uL Monocytes # (Auto) 0.2 0.1-1.0 K/uL Eosinophils # (Auto) 0.00 0.00-0.70 K/uL Basophils # (Auto) 0.02 0.00-0.20 K/uL Absolute Immature Granulocyte (auto 0.07 0-1 K/uL Nucleated Red Blood Cells 0.0 0.0-0.19 % White Cell Morphology Comment See comments Chemistry Labs: Test 10/22/24 14:58 10/22/24 04:23 10/21/24 04:42 Range/Units Whole Blood Glucose 237 H 70-110 MG/DL Sodium Level 138 136-145 mmol/L Potassium Level 4.2 3.5-5.1 mmol/L Chloride Level 103 101-111 mmol/L Carbon Dioxide Level 26 21-32 mmol/L Blood Urea Nitrogen 23 H 7-18 mg/dL Creatinine 0.8 0.5-1.3 mg/dL Glomerular Filtration Rate Calc 93 >90 mL/min Random Glucose 234 H 70-105 mg/dL Total Calcium 9.1 8.5-10.1 mg/dL Total Bilirubin 0.3 0.2-1.0 mg/dL Aspartate Amino Transf (AST/SGOT) 15 10-37 U/L Alanine Aminotransferase (ALT/SGPT) 18 12-78 U/L Alkaline Phosphatase 67 50-136 U/L C-Reactive Protein, Quantitative 2.70 0.5-3.0 mg/L Total Protein 6.9 6.0-8.3 g/dL Albumin 2.9 L 3.5-5.0 g/dL Magnesium Level 2.20 1.80-2.40 mg/dL Diagnostics / Radiology: Impression and Plan: LLE cellulitis, nonhealing left calf ulcer S/p debridement and drainage of infected left leg wound with skin and fat biopsy and wound VAC placement on 10/20/[address] Betancourt. PAD s/p RLE PVI x1 and LLE PVI x2 with the latest done in July 2024 by the PAD specialist in [place], [place] Hypertension Hyperlipidemia Diabetes mellitus type 2 PAD Recent LLE peripheral angiogram in 07/2024 by the PAD specialists in [place], [place], unclear of what interventions may have been performed at mery ttime. Left lower extremity arterial Doppler on 10/18/2024 demonstrated abnormal monophasic waveforms in the left distal popliteal, left posterior tibial, anterior tibial and dorsalis pedal arteries with hyperemic flow -Continue aspirin 81 mg daily, clopidogrel 75 mg daily, and atorvastatin 40 mg nightly -Will send for CTA runoff study to further evaluate the arterial system. [facility] October 22, 2024 15:20 AGNES CASTRO DO October 22, 2024 18:15
[2024-10-22] MEDS: atorVAStatin 40 MG TABLET PO SCH (20:14)
--- NOTE | 2024-10-22 22:57 | PN ---
INFECTIOUS DISEASE FOLLOWUP NOTE DATE OF SERVICE: 10/21/2024 SUBJECTIVE: The patient is seen and examined at bedside today. No fever, no chills. No nausea or vominting. No abdominal pain. Pain to the left leg is better. No cough. No shortness of breath. No palpitations or orthopnea. Denies depression or suicidal ideation. No heat or cold intolerance. No dysuria or urinary frequency. No bleeding tendency. No rashes or itchiness. PHYSICAL EXAMINATION: VITAL SIGNS: Temperature 97.5. EYES: No icterus. Pupils are equal and reactive. HENT: No oral thrush seen. Moist oral mucosa. NECK: Supple. No JVD or thyromegaly. LUNGS: Good air entry. No rales. No rhonchi. CARDIOVASCULAR: S1, S2, regular. No murmur heard. ABDOMEN: Full, soft, nontender. Bowel sound is present. CENTRAL NERVOUS SYSTEM: Awake, alert, oriented x 3. No focal deficits. SKIN: No rashes, no itchiness. LYMPHATIC: Left inguinal lymphadenopathy. BACK: No deformity, no pressure ulcer. EXTREMITIES: Ulcer involving the left lower leg . ASSESSMENT: A 74-year-old male admitted with left leg ulcer, . Current problems include: * Possible left lower extremity pyoderma gangrenosum . * Peripheral vascular disease. * Hypertension. * Obesity. PLAN: * Continue Zosyn. * Continue vancomycin. * Followup cultures. * Continue pain management. * Continue antiplatelets. * Continue DVT prophylaxis. TID: [id number] RECEIPT: [id number]
[2024-10-23] VITALS (7 sets, daily range): BP systolic 117–153; BP diastolic 56–89; PULSE 61–75; RESP 16–18; TEMP 97.3–97.9; O2SAT 97–100
[2024-10-23 04:11] LABS: BASOPHILS # (AUTO) 0.01 K/uL (0.00-0.20); BASOPHILS % (AUTO) 0.1 % (0.0-5.0); HEMATOCRIT 38.4 % (42-54); IMMATURE GRANULOCYTE ABSOLUTE 0.04 K/uL (0-1); LYMPHOCYTES # (AUTO) 1.3 K/uL (1.0-4.8); LYMPHOCYTES % (AUTO) 10.1 % (21.0-51.0); MEAN CORPUSCULAR HEMOGLOBIN 31.5 pg (27.0-33.0); MEAN CORPUSCULAR HGB CONC 34.9 g/dL (32.0-36.0); MEAN CORPUSCULAR VOLUME 90.4 fL (79-99); MONOCYTES # (AUTO) 0.3 K/uL (0.1-1.0); MONOCYTES % (AUTO) 2.7 % (3.0-13.0); NEUTROPHILS # (AUTO) 10.7 K/uL (1.8-7.7); NEUTROPHILS % (AUTO) 86.8 % (40.0-77.0); PLATELET COUNT (AUTO) 304 K/uL (130-400); RED BLOOD CELL COUNT(AUTO) 4.25 MIL/uL (4.50-6.20); RED CELL DISTRIBUTION WIDTH 12.4 % (11.0-15.5); WHITE BLOOD COUNT (AUTO) 12.4 K/uL (4.8-10.8)
[2024-10-23 04:30] LABS: CREATININE 0.8 mg/dL (0.5-1.3); POTASSIUM 4.2 mmol/L (3.5-5.1)
[2024-10-23] MEDS ORDERED: IOHEXOL-350 50ML VIAL IV ONE (08:23)
[2024-10-23] MEDS ORDERED: IOHEXOL 350 MG/ML 100ML INFUS..BTL IV ONE (08:23)
[2024-10-23] MEDS: ASPIRIN 81 MG EC TAB PO SCH (09:37)
--- NOTE | 2024-10-23 09:47 | PN ---
INFECTIOUS DISEASE FOLLOWUP NOTE DATE OF SERVICE: 10/22/2024. SUBJECTIVE: The patient is seen and examined at bedside today. The patient has no fever, no chills. No nausea, vomiting. No sore throat or rhinorrhea. Denies diarrhea. No dysuria. No urinary frequency. Pain to the left leg is better. No depression or suicidal ideation. No bleeding tendencies. No palpitations. No orthopnea. PHYSICAL EXAMINATION: VITAL SIGNS: Temperature today 98.3. EYES: No icterus. Pupils equal and reactive. HENT: No oral thrush seen. Moist oral mucosa. NECK: Supple. No JVD or thyromegaly. LUNGS: Good air entry. No rales. No rhonchi. CARDIOVASCULAR: S1, S2, regular. No murmur heard. ABDOMEN: Obese, soft, nontender. Bowel sound is present. CENTRAL NERVOUS SYSTEM: Awake, alert, oriented x 3. No focal deficits. SKIN: No rashes, no itchiness. LYMPHATIC: There is left inguinal lymphadenopathy. BACK: No deformity. No pressure ulcer. HEMATOLOGIC: No bleeding or petechial lesions seen. EXTREMITIES: Lower leg wound sealed with the wound vacuum. ASSESSMENT: A 74-year-old male, presented with left leg pain, swelling, and redness. CURRENT PROBLEMS: Include: * Left leg ulcer, status post debridement. * Possible pyoderma gangrenosum. * Obesity. * Hypertension. * Peripheral vascular disease. * DVT. PLAN: * Continue wound care. * Continue vacuum assisted wound closure. * Continue pain management. * Continue antibiotics. * Continue DVT prophylaxis. * Monitor electrolytes. * Continue dexamethasone. TID: [id number] RECEIPT: [id number] [facility]
--- NOTE | 2024-10-23 13:15 | PN ---
[facility] CARDIOLOGY PROGRESS NOTE Date Patient Seen: October 23, 2024 Time of Visit: 13:12 Problem List: [ Bilateral lower extremity PAD. Hypertension Type 2 diabetes Hyperlipidemia] Interval History: [No acute events overnight. Patient's blood pressure controlled and wound VAC was then placed in the left calf. Patient underwent abdominal CT of runoff and we are pending formal read ] Physical Examination: GENERAL: [No acute distress.] HEAD: [Normal with no signs of head trauma.] EYES: [PERRLA, EOMI, conjunctiva and sclera normal.] ENT: [Hearing grossly intact, normal oropharynx.] NECK: [Supple without JVD. There is no tenderness, lymphadenopathy, or masses. No thyromegaly. Normal carotid upstrokes without bruits.] LUNGS: [Clear breath sounds bilaterally. No wheezes, or rhonchi.] HEART: [Normal rate and rhythm. Normal S1 and S2 without mumurs, gallop or rub.] VASC: [Peripheral pulses +2 bilaterally.] ABD: [Bowel sounds normal, soft, nontender, no masses, no organomegaly. No audible bruits.] : [Not examined] LYMPH: [No lymphadenopathy noted.] EXT: [No clubbing, cyanosis or edema.] SKIN: [Left calf ulcer and wound VAC in place] NEURO: [Awake, alert, and oriented x3. No focal sensory or strength deficits noted.] Laboratory: [ ] Hematology Labs: Test 10/23/24 04:00 Range/Units White Blood Count 12.4 H 4.8-10.8 K/uL Red Blood Count 4.25 L 4.50-6.20 MIL/uL Hemoglobin 13.4 L 14.0-18.0 g/dL Hematocrit 38.4 L 42-54 % Mean Corpuscular Volume 90.4 79-99 fL Mean Corpuscular Hemoglobin 31.5 27.0-33.0 pg Mean Corpuscular Hemoglobin Concent 34.9 32.0-36.0 g/dL Red Cell Distribution Width 12.4 11.0-15.5 % Platelet Count 304 130-400 K/uL Mean Platelet Volume 10.1 7.5-10.5 fL Immature Granulocyte % (Auto) 0.3 0-1 % Neutrophils (%) (Auto) 86.8 H 40.0-77.0 % Lymphocytes (%) (Auto) 10.1 L 21.0-51.0 % Monocytes (%) (Auto) 2.7 L 3.0-13.0 % Eosinophils (%) (Auto) 0.0 0.0-8.0 % Basophils (%) (Auto) 0.1 0.0-5.0 % Neutrophils # (Auto) 10.7 H 1.8-7.7 K/uL Lymphocytes # (Auto) 1.3 1.0-4.8 K/uL Monocytes # (Auto) 0.3 0.1-1.0 K/uL Eosinophils # (Auto) 0.00 0.00-0.70 K/uL Basophils # (Auto) 0.01 0.00-0.20 K/uL Absolute Immature Granulocyte (auto 0.04 0-1 K/uL Nucleated Red Blood Cells 0.0 0.0-0.19 % Chemistry Labs: Test 10/23/24 10:38 10/23/24 04:00 10/22/24 04:23 Range/Units Whole Blood Glucose 230 H 70-110 MG/DL Sodium Level 140 136-145 mmol/L Potassium Level 4.2 3.5-5.1 mmol/L Chloride Level 104 101-111 mmol/L Carbon Dioxide Level 29 21-32 mmol/L Blood Urea Nitrogen 23 H 7-18 mg/dL Creatinine 0.8 0.5-1.3 mg/dL Glomerular Filtration Rate Calc 93 >90 mL/min Random Glucose 239 H 70-105 mg/dL Hemoglobin A1c 10.0 H 4.0-6.0 % Estimated Average Glucose (eAG) 240 H 70-126 mg/dL Total Calcium 9.4 8.5-10.1 mg/dL Triglycerides Level 53 30-200 mg/dL Cholesterol Level 145 <200 mg/dL LDL Cholesterol 71 0-99 mg/dL HDL Cholesterol 60 29-71 mg/dL Total Bilirubin 0.3 0.2-1.0 mg/dL Aspartate Amino Transf (AST/SGOT) 15 10-37 U/L Alanine Aminotransferase (ALT/SGPT) 18 12-78 U/L Alkaline Phosphatase 67 50-136 U/L C-Reactive Protein, Quantitative 2.70 0.5-3.0 mg/L Total Protein 6.9 6.0-8.3 g/dL Albumin 2.9 L 3.5-5.0 g/dL Diagnostics / Radiology: [Copy/Paste Echos/Imaging Report here] Impression and Plan: [LLE cellulitis, nonhealing left calf ulcer S/p debridement and drainage of infected left leg wound with skin and fat biopsy and wound VAC placement on 10/20/[address] Betancourt. PAD s/p RLE PVI x1 and LLE PVI x2 with the latest done in July 2024 by the PAD specialist in [place] Hypertension Hyperlipidemia Diabetes mellitus type 2 PAD Recent LLE peripheral angiogram in 07/2024 by the PAD specialists in [place], [place], unclear of what interventions may have been performed [facility]. Left lower extremity arterial Doppler on 10/18/2024 demonstrated abnormal monophasic waveforms in the left distal popliteal, left posterior tibial, anterior tibial and dorsalis pedal arteries with hyperemic flow -Continue aspirin 81 mg daily, clopidogrel 75 mg daily, and atorvastatin 40 mg nightly -abdominal CTA with runoff has been performed and we are pending formal read ] -continue IV antibiotics and wound care per primary team. Wound VAC is in place in the left calf Thank you for this consult. Cardiology continue follow along pending abdominal CTA with runoff results Abraham HOUSE,ABRAHAM Foreman MD October 23, 2024 13:15
--- NOTE | 2024-10-23 13:52 | PN ---
[facility] PROGRESS NOTE Date of Service: October 23, 2024 Time of Service: 13:43 SUBJECTIVE: This is a 74 year old male with past medical history of PVD with PCI ,diabetes,hypertension ,GERD and hyperlipidemia who presents to the ED for complaints of severe pain to left leg ulcer and swelling and he noticed bloody drainage this afternoon so he decided to come to the ED for further evaluati on.Patient reports that this wound started since November 2023 and is doing medihoney dressing everyday but patient has not taken antibiotic.Patient states he had a stent placed by on both lower legs on 08/14/2024. Seen and examined patient in the Ed awake,alert and coherent appears uncomfortable complaints of left leg pain 8/10 pain level.Patient denies,fever,chills,nausea,vomiting,chest pain,palpitation and shortness of breath. Vital signs temperature 98.2 heart rate 72 blood pressure 161/75 saturation 98% on room air. Labs: Hemoglobin 13, hematocrit 41, platelet count 284. Glucose 281 calcitonin less than 0 point 0 five. X-ray of the left leg result revealed there is no acute displaced fracture or dislocation. There is soft tissue swelling. Vascular calcifications are seen. Small calcaneal spur is seen. Evaluation for osteomyelitis is limited with radiographs. Degenerative changes are seen. While in the ER patient received Zosyn IV, morphine 2 mg IV and Zofran 4 mg IV. We will admit patient for further medical management. 10/19/24 The patient was seen and examined today morning. His daughter is at the bedside. He is complaining on and off ulcer pain. Clinically, the ulcer looks like pyoderma gangrenosum. We will check hepatitis panel. Patient may have associated IBD. Infectious disease recommending general surgery and hem & onc. wound culture results pending. Arterial US showed atherosclerotic disease, abnormal monophasic arterial wave for seen in the left distal popliteal, left posterior tibial, anterior tibial and dorsalis pedal arteries with hyperemic flow. 10/20/24 patient was seen and evaluated. Patient underwent debridement of left leg ulcer. Aerobic culture showed 2+ Gram-negative rods, identification and sensitivity pending. Arterial ultrasound showed atherosclerotic disease. Abnormal monophasic waveforms in left distal popliteal, left posterior tibial, anterior tibial and dorsalis pedal arteries with hyperemic flow. We will consult Cardiology for peripheral arterial disease. Hepatitis B and C are nonreactive. Dr. Enciso started him on dexamethasone. Continue Plavix. 10/21/24: Patient was seen and evaluated this morning at bedside. Patient is POD #1 S/P debridement of left leg ulcer. Patient continues on Zosyn and Vancomycin, as per infectious disease recommendations. Pending cardiology recommendations for PAD. Patient continues on Dexamethasone per hematology recommendations. Patient denies bowel movement for 3 days, Miralax has been ordered. 10/22/2024 Patient is seen and examined at the bedside. He is postop day 2 s/p debridement of left leg ulcer. Vitals blood pressure 152/72. He complains of moderate pain in his left lower extremity. He did not have a bowel movement yet, lactulose has been ordered. Labs WBC increased from 11.3-15.2, glucose 210. aerobic cultures of the left leg ulcer resulted in E coli, Enterococcus faecalis and Proteus mirabilis. Pending cardiology consult. 10/23/24 patient was seen and evaluated in the morning. Cardiology Consult appreciated and recommended continue aspirin 81, [id number] and atorvastatin 40 mg. Patient just came back from CTA runoff and pending results. He is complaining of mild pain on his left calf. WBC trending down 15.2-12.4 today. His glucose level has been high and we will adjust the insulin regimen. Plan is to send him to LT[facility]. Case management consulted and we will wait for insurance approval. Continue wound VAC, IV Zosyn and vancomycin. REVIEW OF SYSTEMS CONSTITUTIONAL: Denies fevers, chills, or night sweats. No unintentional weight loss reported. NEUROLOGICAL: Denies headache, amaurosis fugax, motor weakness, sensory deficit, vertigo/spinning sensation, gait abnormalities, or tremors. ENT: No hearing loss, otalgia, otorrhea, rhinitis, rhinorrhea, hoarseness, or sore throat. CARDIOVASCULAR: Denies any exertional angina, dyspnea on exertion, orthopnea, paroxysmal nocturnal dyspnea, palpitations, life-threatening arrhythmias, claudication. PULMONARY: Denies any shortness of breath, cough, phlegm/sputum, hemoptysis, pleuritic chest pain. SLEEP: Denies morning headaches, daytime somnolence or napping. Denies difficulty falling asleep, staying asleep, waking from sleep. Denies knowledge of snoring. GASTROINTESTINAL: Denies any type of dysphagia to either liquids or solids. Denies nausea, vomiting, pyrosis, early satiety, abdominal pain, diarrhea, constipation, or changes in stool consistency or caliber. Denies coffee-ground emesis, hematemesis, hematochezia, or melanotic stools. GENITOURINARY: Denies frequency, urgency, nocturia, hematuria or incontinence (Storage/Irritative symptoms.) Low urinary stream, straining to void, urinary intermittency or hesitancy, splitting of the voiding stream, terminal dribbling. ENDOCRINOLOGIC: Denies polyuria, polydipsia, polyphagia or heat/cold intolerances. HEMATOLOGIC: Denies thrombophilia/previous clots, or coagulopathy/bleeding disorders. ONCOLOGIC: Denies personal history of malignancy. DERMATOLOGIC: Denies rashes or pruritus. PSYCHIATRIC: Denies any suicidal or homicidal ideation. Denies hallucinations. PHYSICAL EXAM GENERAL APPEARANCE: The patient is awake, alert, and oriented, in no acute cardiopulmonary distress. NEUROLOGICAL: Cranial nerves II-XII grossly intact. Motor is 5/5 in bilateral upper and lower extremities proximal to distal. No sensory deficits. HEENT: Face is symmetric. Pupils are equal and reactive. Extraocular movements are intact. NECK: Supple. No JVD. No thyromegaly. No submental, submandibular, pre- /postauricular, occipital or supraclavicular lymphadenopathy. CHEST: Normal chest expansion. No Telemetry. LUNGS: Absence of any rales, rhonchi or any wheezing. CARDIOVASCULAR: Regular. S1 and S2 normal. No appreciable rubs, murmurs or gallops. ABDOMEN: Soft, nontender, and nondistended. There is no rebound, voluntary guarding, or rigidity. : Deferred. No Bonilla. EXTREMITIES: Non-edematous and not cyanotic. No clubbing. Good capillary refill. Wound VAC on left calf SKIN: Non healing wound ulcer to left leg. Vital Signs (last 8hr) Date Time Temp Pulse Resp B/P (MAP) Pulse Ox O2 Delivery O2 Flow Rate FiO2 10/23/24 11:27 97.5 67 18 153/89 96 Room Air 10/23/24 08:00 100 Room Air* 0 21 10/23/24 07:31 97.5 63 18 117/56 100 Room Air LABS: Laboratory: Test 10/23/24 10:38 10/23/24 08:16 10/23/24 04:00 10/22/24 04:23 Range/Units Whole Blood Glucose 230 H 70-110 MG/DL Vancomycin Level Trough 10.5 # 10.0-20.0 UG/ML White Blood Count 12.4 H 4.8-10.8 K/uL Red Blood Count 4.25 L 4.50-6.20 MIL/uL Hemoglobin 13.4 L 14.0-18.0 g/dL Hematocrit 38.4 L 42-54 % Mean Corpuscular Volume 90.4 79-99 fL Mean Corpuscular Hemoglobin 31.5 27.0-33.0 pg Mean Corpuscular Hemoglobin Concent 34.9 32.0-36.0 g/dL Red Cell Distribution Width 12.4 11.0-15.5 % Platelet Count 304 130-400 K/uL Mean Platelet Volume 10.1 7.5-10.5 fL Immature Granulocyte % (Auto) 0.3 0-1 % Neutrophils (%) (Auto) 86.8 H 40.0-77.0 % Lymphocytes (%) (Auto) 10.1 L 21.0-51.0 % Monocytes (%) (Auto) 2.7 L 3.0-13.0 % Eosinophils (%) (Auto) 0.0 0.0-8.0 % Basophils (%) (Auto) 0.1 0.0-5.0 % Neutrophils # (Auto) 10.7 H 1.8-7.7 K/uL Lymphocytes # (Auto) 1.3 1.0-4.8 K/uL Monocytes # (Auto) 0.3 0.1-1.0 K/uL Eosinophils # (Auto) 0.00 0.00-0.70 K/uL Basophils # (Auto) 0.01 0.00-0.20 K/uL Absolute Immature Granulocyte (auto 0.04 0-1 K/uL Nucleated Red Blood Cells 0.0 0.0-0.19 % Sodium Level 140 136-145 mmol/L Potassium Level 4.2 3.5-5.1 mmol/L Chloride Level 104 101-111 mmol/L Carbon Dioxide Level 29 21-32 mmol/L Blood Urea Nitrogen 23 H 7-18 mg/dL Creatinine 0.8 0.5-1.3 mg/dL Glomerular Filtration Rate Calc 93 >90 mL/min Random Glucose 239 H 70-105 mg/dL Hemoglobin A1c 10.0 H 4.0-6.0 % Estimated Average Glucose (eAG) 240 H 70-126 mg/dL Total Calcium 9.4 8.5-10.1 mg/dL Triglycerides Level 53 30-200 mg/dL Cholesterol Level 145 <200 mg/dL LDL Cholesterol 71 0-99 mg/dL HDL Cholesterol 60 29-71 mg/dL Total Bilirubin 0.3 0.2-1.0 mg/dL Aspartate Amino Transf (AST/SGOT) 15 10-37 U/L Alanine Aminotransferase (ALT/SGPT) 18 12-78 U/L Alkaline Phosphatase 67 50-136 U/L C-Reactive Protein, Quantitative 2.70 0.5-3.0 mg/L Total Protein 6.9 6.0-8.3 g/dL Albumin 2.9 L 3.5-5.0 g/dL Current Medications Medications (Trade) Dose Ordered Sig/Dorinda Route PRN Reason Start Time Stop Time Status Last Admin Dose Admin Acetaminophen (TYLenol 325MG TAB) 650 mg Q4H PRN PO MILD PAIN (1-3) 10/18/24 20:00 11/17/24 19:59 Acetaminophen (TYLenol 325MG TAB) 650 mg Q6H PRN PO TEMPERATURE GREATER THAN 101.5 10/18/24 20:00 11/17/24 19:59 Acetaminophen/ Codeine Phosphate (TYLenol-coDEINE TAB) 2 tab Q6H PRN PO SEVERE PAIN (7-10) 10/19/24 09:30 10/23/24 06:36 DC 10/19/24 16:45 2 TAB Aspirin (Aspirin 81mg Ec Tab) 81 mg DAILY PO 10/23/24 09:00 11/22/24 08:59 10/23/24 09:37 81 MG Atorvastatin Calcium (LIPItor 10MG) 5 mg HS PO 10/19/24 21:00 10/22/24 15:33 DC 10/21/24 21:49 5 MG Atorvastatin Calcium (LIPItor 40MG) 40 mg HS PO 10/22/24 21:00 11/21/24 20:59 10/22/24 20:14 40 MG Clopidogrel Bisulfate (plaVIX 75MG) 75 mg DAILY PO 10/20/24 09:00 11/19/24 08:59 10/23/24 09:37 75 MG Dexamethasone Sodium Phosphate (dexaMETHasone 4MG/ML 1ML VIAL) 20 mg Q24H IV 10/20/24 13:30 10/20/24 13:23 DC Dexamethasone Sodium Phosphate 20 mg/Sodium Chloride 50 ml @ 100 mls/hr Q24H IV 10/20/24 14:00 11/19/24 13:59 10/22/24 15:05 100 MLS/HR Dextrose (D50w) 50 ml AD PRN IV HYPOGLYCEMIA PROTOCOL 10/18/24 20:00 11/17/24 19:59 Enoxaparin Sodium (Lovenox) 30 mg DAILY SQ 10/19/24 16:00 11/18/24 15:59 10/23/24 09:39 30 MG Famotidine (Pepcid 20mg Tab) 20 mg BID PO 10/18/24 21:00 11/17/24 20:59 10/23/24 09:37 20 MG Gabapentin (NEURontin 100 mg CAP) 100 mg TID PO 10/19/24 21:00 11/18/24 20:59 10/23/24 13:31 100 MG Glucagon (Glucagon 1mg Kit) 1 mg AD PRN IM HYPOGLYCEMIA PROTOCOL 10/18/24 20:00 11/17/24 19:59 Hydrochlorothiazide (hydroCHLOROthiazide 25MG) 12.5 mg DAILY PO 10/20/24 09:00 11/19/24 08:59 10/23/24 09:37 12.5 MG Hydromorphone HCl (DiLAUDid 1MG INJ) 1 mg Q3H3 PRN IVP SEVERE PAIN (7-10) 10/20/24 11:30 10/25/24 11:29 10/21/24 18:56 1 MG Insulin Glargine (LANtus 100 UNITS/ML 10 ML VIAL) 20 units HS SQ 10/19/24 21:00 11/18/24 20:59 10/22/24 20:27 20 UNITS Insulin Human Regular (humuLIN R 100 UNIT/ML 3ML) INSULIN SLIDING SCAL... ACHS SQ 10/18/24 21:00 11/17/24 20:59 10/23/24 11:58 4 UNIT Leptospermum Honey (Medihoney) 1 appl DAILY TP 10/20/24 09:00 11/19/24 08:59 10/20/24 07:40 1 APPL Losartan Potassium (CozAAR 25MG TAB) 25 mg DAILY PO 10/20/24 09:00 11/19/24 08:59 10/22/24 09:31 25 MG Magnesium Sulfate 50 ml @ 0 mls/hr PROTOCOL PRN IV OTHER [SEE ORDER COMMENTS] 10/18/24 20:00 11/17/24 19:59 Morphine Sulfate (morPHINE 2MG SYG) 2 mg ONCE STAT IVP 10/18/24 19:33 10/18/24 19:38 DC 10/18/24 20:04 2 MG Morphine Sulfate (morPHINE 2MG SYG) 2 mg Q4H PRN IV MODERATE PAIN (4-6) 10/18/24 20:00 10/23/24 06:36 DC 10/22/24 04:13 2 MG Multivitamins Therapeutic (Multivitamin Tablet) 1 tab DAILY PO 10/20/24 09:00 11/19/24 08:59 10/23/24 09:37 1 TAB Ondansetron HCl (zoFRAN 4MG INJ) 4 mg ONCE STAT IVP 10/18/24 19:33 10/18/24 19:38 DC 10/18/24 20:04 4 MG Ondansetron HCl (zoFRAN 4MG INJ) 4 mg Q6H PRN IV NAUSEA/VOMITING 10/18/24 20:00 11/17/24 19:59 10/20/24 02:40 4 MG Oxycodone/ Acetaminophen (perCOCET) 1 tab Q4H PRN PO SEVERE PAIN (7-10) 10/20/24 11:30 10/27/24 11:29 10/23/24 09:38 1 TAB Piperacillin Sod/ Tazobactam Sod 50 ml @ 12.5 mls/hr Q8H IV 10/19/24 04:00 10/29/24 03:59 10/23/24 11:52 12.5 MLS/HR Piperacillin Sod/ Tazobactam Sod (Zosyn 3.375gm+NS 50ml) 3.375 gm ONCE STAT IV 10/18/24 19:31 10/18/24 19:38 DC 10/18/24 20:04 3.375 GM Potassium Chloride 100 ml @ 100 mls/hr AD PRN IV POTASSIUM PROTOCOL 10/18/24 20:00 11/17/24 19:59 Potassium Chloride (K-Dur/Klor-Con 20meq) 20 meq AD PRN PO POTASSIUM PROTOCOL 10/18/24 20:00 11/17/24 19:59 10/21/24 14:53 20 MEQ Potassium Chloride (KCl 10% Elixir 20meq/15ml) 20 meq AD PRN PO POTASSIUM PROTOCOL 10/18/24 20:00 11/17/24 19:59 Vancomycin HCl 250 ml @ 125 mls/hr ONCE IV 10/18/24 20:00 10/18/24 20:20 DC Vancomycin HCl 250 ml @ 125 mls/hr Q12H IV 10/21/24 21:00 10/31/24 20:59 10/23/24 09:39 125 MLS/HR Vancomycin HCl (Vancomycin 750mg) 750 mg Q12H IVPB 10/19/24 09:00 10/21/24 21:00 DC 10/21/24 08:44 750 MG Vancomycin HCl (Vancomycin Protocol) 1 each AD IV 10/18/24 20:30 11/01/24 20:29 DIAGNOSTICS / RADIOLOGY: [place] [address] IMAGING REPORT Signed PATIENT: GENIE GONZALES MR#: [id number] : 1950 SEX: M AGE: 74 LOCATION: [facility] ORDER 1611 STATUS: REG REPORT#: [id number] SERVICE 1609 REASON: wound ORDERING PHYSICIAN: BONITA FIGUEROA NP PROCEDURE: TIBFIB LT - TIBIA/FIBULA 2VWS LT TIBIA/FIBULA 2VWS LT HISTORY: Wound COMPARISON: None TECHNIQUE: 2 images of the left tibia and fibula were obtained. FINDINGS: There is no acute displaced fracture or dislocation. There is soft tissue swelling. Vascular calcifications are seen. Small calcaneal spur is seen. Evaluation for osteomyelitis is limited with radiographs. Degenerative changes are seen. IMPRESSION: 1. Findings as described above. DICTATED BY: PRAKASH MACK MD DATE: 10/18/24 1637 ELECTRONICALLY SIGNED BY: PRAKASH MACK MD DATE: 10/18/24 1640 [place] [address] [place] [id number] IMAGING REPORT Signed PATIENT: GENIE GONZALES MR#: [id number] : 1950 SEX: M AGE: 74 LOCATION: [facility] ORDER 08 STATUS: [facility] REPORT#: [id number] SERVICE 04 REASON: pain and swelling to left lower extremity ORDERING PHYSICIAN: DIANA BLACK SONOGRAPHY TECHNOLOGIST PROCEDURE: ART U LE - US ARTERIAL UNILA LOW EXT DUPL US ARTERIAL UNILA LOW EXT DUPL HISTORY: Pain and swelling COMPARISON: None TECHNIQUE: Left lower extremity arterial Doppler ultrasound study was performed. FINDINGS: Abnormal monophasic arterial waveforms are seen in the left distal popliteal, left posterior tibial, anterior tibial and dorsalis pedal arteries with hyperemic flow. Normal triphasic and biphasic arterial waveforms are noted in the left common femoral, deep femoral, superficial femoral, and popliteal arteries. On the left, the peak systolic velocity of the common femoral artery is 123 cm/s, the proximal femoral artery is 164 cm/s, the mid femoral artery is 95 cm/s, the distal femoral artery is 63 cm/s, the proximal popliteal artery is 78 cm/s, the distal popliteal artery is 75 cm/s, the anterior tibial artery is 21 cm/s, the posterior tibial artery artery is 200 cm/s,and the dorsalis pedal artery is 17 cm/s. IMPRESSION: 1. Atherosclerotic disease. 2. Abnormal monophasic arterial waveforms are seen in the left distal popliteal, left posterior tibial, anterior tibial and dorsalis pedal arteries with hyperemic flow. DICTATED BY: PRAKASH MACK MD DATE: 10/19/2453 ELECTRONICALLY SIGNED BY: PRAKASH MACK MD DATE: 10/19/24 0958 [place] [address] [id number] IMAGING REPORT Signed PATIENT: GENIE GONZALES MR#: [id number] : 1950 SEX: M AGE: 74 LOCATION: [facility] ORDER 08 STATUS: ADM IN REPORT#: [id number] SERVICE 04 REASON: pain and swelling to left lower extremity ORDERING PHYSICIAN: DIANA BLACK SONOGRAPHY TECHNOLOGIST PROCEDURE: VENOUS UNI - US VENOUS DOPPLER UNILATERAL US VENOUS DOPPLER UNILATERAL HISTORY: Pain and swelling COMPARISON: None TECHNIQUE: Left lower extremity venous Doppler ultrasound study was performed. FINDINGS: The left common femoral, femoral, popliteal, and posterior tibial veins are visualized. Normal flow with augmentation and compressibilities are demonstrated. Left greater saphenous vein is patent. IMPRESSION: 1. No evidence of deep venous thrombosis is seen. DICTATED BY: PRAKASH MACK MD DATE: 10/18/242050 ELECTRONICALLY SIGNED BY: PRAKASH MACK MD DATE: 10/18/242053 ASSESSMENT: Chronic left leg ulcer with suspected pyoderma gangrenosum, s/p debridement, skin biopsy and wound VAC placement. Left lower extremity cellulitis. Diabetic leg ulcer with 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 Continue on heart healthy and consistent carb diet Suspected Pyoderma Gangrenosum Clinically, the ulcer looks like pyoderma gangrenosum. Hepatitis panel nonreactive. Continue IV Vancomycin and Zosyn as per ID consult recommendation Patient had undergone debridement of left lower leg on 10/20/24 by general surgery consult. The aerobic culture is positive for Enterococcus faecalis, Enterobacter or manage she, E coli and Proteus mirabilis. Continue IV dexamethasone 20 mg 50 ml @ 100 ml/hour as per Hematology consult recommendation Diabetic leg ulcer with suspected infection and necrosis POA Wound management consult appreciated and we will follow their recommendations. Continue IV vancomycin and IV zosyn. Aerobic wound culture showed an E coli, Enterococcus faecalis, Proteus mirabilis History of PVD with PCI Continue Clopidogrel. Arterial ultrasound showed atherosclerotic disease. Abnormal monophasic waveforms in left distal popliteal, left posterior tibial, anterior tibial and dorsalis pedal arteries with hyperemic flow. Consultation with Cardiology appreciated and recommended aspirin 81, [id number] and atorvastatin 40 mg. Recommended CTA runoff and pending results Uncontrolled diabetes POA Continue glucose checks AC & HS. Follow insulin sliding scale with hypoglycemia protocol HbA1c is 10.3% on admission. We will increase the dose of Lantus to 30 units HS and we will add 3 units of insulin lispro t.i.d. pre meals. Gabapentin 100 mg TID. Hypertension POA Continue home medication Losartan and hydrochlorothiazide. Hyperlipidemia POA We will increase the dose of statin from 5-40 mg Case management is consulted for Solera placement. Lovenox 30 mg SQ daily for DVT prophylaxis Famotidine 20 mg p.o. bid for GI prophylaxis PRN medication for fever,pain,cough ,nausea and vomiting. ATTESTATION BY PHYSICIAN I have seen and examined the patient. I reviewed the documentation, medical decision making, and treatment plan as noted by the resident provider above. I agree with the findings and plan of care. Gurmeet Rivas MD, KRUPALI P MD October 23, 2024 13:52
[2024-10-23] MEDS: dexaMETHasone 10MG/ML 1ML VIAL 20 MG in 0.9%NACL 50ML 50 ML IV SCH (15:35)
[2024-10-23] MEDS: INSULIN LISpro 100 UNIT/ML 3ML SQ SCH (17:05)
--- NOTE | 2024-10-23 17:42 | PN ---
INFECTIOUS DISEASE PROGRESS NOTE Date of Service: October 23, 2024 SUBJECTIVE: This is a 74-year-old male patient who was seen and examined at bedside in room 303. Patient is s/p debridement and skin biopsy of left leg wound and wound VAC placement on 10/20/2024. The wound cultures results is positive for Enterococcus faecalis, Enterobacter Hormaechei, E coli and Proteus mirabilis.. We will continue vancomycin and Zosyn IV. Patient continues on IV steroid. No fever, temperature is 97.5 . The WBC is slightly elevated at 12.4 Which could be related to the IV steroids. We will have case management evaluate for referral to [facility]. PHYSICAL EXAM EYES: Anicteric. Pupils equal and reactive. HENT: No oral thrush seen, moist Oral mucosa NECK: Supple, no JVD or thyromegaly. LUNGS: Good air entry. No rales, no rhonchi. CARDIOVASCULAR: S1, S2 regular. No murmur heard. ABDOMEN: Soft, non tender, bowel sounds present, no organomegaly CENTRAL NERVOUS SYSTEM: Awake, alert, oriented x 3. SKIN: No rashes, no swelling. LYMPHATICS: No peripheral lymphadenopathy MUSCULOSKELETAL: No joint swelling, erythema or tenderness. EXTREMITIES: No cyanosis or clubbing. Chronic left leg ulcer with possible pyoderma gangrenosum BACK: No deformity, no pressure ulcer. GENITOURINARY: No dysuria or hematuria Vital Sign (Last 12 Hours) 10/23/24 10/23/24 10/23/24 10/23/24 07:31 08:00 11:27 15:15 Temp 97.5 97.5 97.9 Pulse 63 67 61 Resp 18 18 18 B/P (MAP) 117/56 153/89 126/69 Pulse Ox 100 100 96 97 O2 Delivery Room Air Room Air* Room Air Room Air O2 Flow Rate 0 FiO2 21 Intake & Output (last 24hrs) 10/22/24 10/22/24 10/23/24 15:00 23:00 07:00 Intake Total 1200 ml 500 ml Output Total 300 ml 300 ml Balance 900 ml 200 ml LABS: Laboratory: Test 10/23/24 15:39 10/23/24 08:16 10/23/24 04:00 10/22/24 04:23 Range/Units Whole Blood Glucose 222 H 70-110 MG/DL Vancomycin Level Trough 10.5 # 10.0-20.0 UG/ML White Blood Count 12.4 H 4.8-10.8 K/uL Red Blood Count 4.25 L 4.50-6.20 MIL/uL Hemoglobin 13.4 L 14.0-18.0 g/dL Hematocrit 38.4 L 42-54 % Mean Corpuscular Volume 90.4 79-99 fL Mean Corpuscular Hemoglobin 31.5 27.0-33.0 pg Mean Corpuscular Hemoglobin Concent 34.9 32.0-36.0 g/dL Red Cell Distribution Width 12.4 11.0-15.5 % Platelet Count 304 130-400 K/uL Mean Platelet Volume 10.1 7.5-10.5 fL Immature Granulocyte % (Auto) 0.3 0-1 % Neutrophils (%) (Auto) 86.8 H 40.0-77.0 % Lymphocytes (%) (Auto) 10.1 L 21.0-51.0 % Monocytes (%) (Auto) 2.7 L 3.0-13.0 % Eosinophils (%) (Auto) 0.0 0.0-8.0 % Basophils (%) (Auto) 0.1 0.0-5.0 % Neutrophils # (Auto) 10.7 H 1.8-7.7 K/uL Lymphocytes # (Auto) 1.3 1.0-4.8 K/uL Monocytes # (Auto) 0.3 0.1-1.0 K/uL Eosinophils # (Auto) 0.00 0.00-0.70 K/uL Basophils # (Auto) 0.01 0.00-0.20 K/uL Absolute Immature Granulocyte (auto 0.04 0-1 K/uL Nucleated Red Blood Cells 0.0 0.0-0.19 % Sodium Level 140 136-145 mmol/L Potassium Level 4.2 3.5-5.1 mmol/L Chloride Level 104 101-111 mmol/L Carbon Dioxide Level 29 21-32 mmol/L Blood Urea Nitrogen 23 H 7-18 mg/dL Creatinine 0.8 0.5-1.3 mg/dL Glomerular Filtration Rate Calc 93 >90 mL/min Random Glucose 239 H 70-105 mg/dL Hemoglobin A1c 10.0 H 4.0-6.0 % Estimated Average Glucose (eAG) 240 H 70-126 mg/dL Total Calcium 9.4 8.5-10.1 mg/dL Triglycerides Level 53 30-200 mg/dL Cholesterol Level 145 <200 mg/dL LDL Cholesterol 71 0-99 mg/dL HDL Cholesterol 60 29-71 mg/dL Total Bilirubin 0.3 0.2-1.0 mg/dL Aspartate Amino Transf (AST/SGOT) 15 10-37 U/L Alanine Aminotransferase (ALT/SGPT) 18 12-78 U/L Alkaline Phosphatase 67 50-136 U/L C-Reactive Protein, Quantitative 2.70 0.5-3.0 mg/L Total Protein 6.9 6.0-8.3 g/dL Albumin 2.9 L 3.5-5.0 g/dL DIAGNOSTICS / RADIOLOGY: PATIENT: GENIE GONZALES ACCT: [id number] LOC: [facility] U: [id number] AGE/SX: 74/M ROOM: [facility] RE10/18/[address]: RAJESH PUTNAM MD : 1950 BED: 1 DIS: STATUS: ADM IN TLOC: SPEC: [id number] JOE: 10/20/24 STATUS: COMP REQ: [id number] RECD: 10/20/24-1101 [facility] DR: DERICK CM MD SOURCE: LEG ENTR: 10/20/24-1026 [facility]: JUNIE KNOWLES MD SPDESC: LEFT RAJESH PUTNAM MD,GENIE MALDONADO,ISABEL NICHOLAS MD, PA-C ORDERED: GS, DAJUAN CULTURE, AEROBIC CULTURE SPEC: [id number] PATIENT: GENIE GONZALES [id number] (Continued) Has specimen been collected/obtained? Y Specimen Comment: LEFT LEG WOUND Has specimen been collected/obtained? Y Specimen Comment: LEFT LEG WOUND Has specimen been collected/obtained? Y Specimen Comment: LEFT LEG WOUND Procedure Result Derrell Date-Time GRAM STAIN ONLY Final 10/20/24-1451 GRAM STAIN: NO ORGANISMS SEEN 3+ WBC ANAEROBIC CULTURE Final 10/23/24-1328 MRL COLONY DESCRIPTION: REPORT 1: NO ANAEROBES AT 16-23 HOURS; STUDIES TO CONTINUE REPORT 2: NO ANAEROBES AT 36-47 HOURS; STUDIES TO CONTINUE REPORT 3: NO ANAEROBES AT 60 TO 71 HOURS Test(s) performed by: [facility] [address] [place] [address] AEROBIC CULTURE Final 10/23/24-1020 MRL COLONY DESCRIPTION: REPORT 1: 2+ GRAM NEGATIVE RODS IDENTIFICATION AND SENSITIVITY TO FOLLOW REPORT 2: 1+ GRAM POSITIVE COCCI IN CHAINS . IDENTIFICATION AND SENSITIVITY TO FOLLOW REPORT 3: NO FURTHER WORK-UP DONE ENTEROCOCCUS FAECALIS ENTEROBACTER HORMAECHEI ESCHERICHIA COLI PROTEUS MIRABILIS CONTINUED ON NEXT PAGE RUN DATE: 10/23/24 [facility] PAGE 3 RUN TIME: [id number] [address], [place] [address] Department [employer] BRE # [id number] Cotton Stomper: Mehdi Perrin DO Specimen Report SPEC: [id number] PATIENT: GENIE GONZALES [id number] (Continued) Procedure Result Derrell Date-Time AEROBIC CULTURE Final (continued) 10/23/24-1020 Odalis LORENZO M.I.CMariusz RX M.I.C. RX --------- ---- --------- ---- AMPICILLIN <=2 S AZTREONAM <=4 S CEFAZOLIN CEFTAZIDIME <=1 S CEFTAZIDIME/AVIBACTAM CEFTRIAXONE GENTAMICIN <=2 S LEVOFLOXACIN <=0.5 S VANCOMYCIN 1 S TOBRAMYCIN AMPICILLIN/SULBACTAM GENTAMICIN Synergy Screen >500 R MEROPENEM <=1 S PENICILLIN 2 S PIPERACILLIN/TAZOBACTAM <=8 S STREPTOMYCIN Synergy Screen <=1000 S TRIMETHOPRIM/SUFLAMETHOXAZOLE >2/38 R E COLI PMIRABILIS M.I.C. RX M.I.C. RX --------- ---- --------- ---- AMPICILLIN >16 R <=8 S AZTREONAM 16 R <=4 S CEFAZOLIN >16 R <=2 S CEFTAZIDIME <=1 S CEFTAZIDIME/AVIBACTAM <=8 S <=8 S CEFTRIAXONE >2 R GENTAMICIN >8 R <=2 S LEVOFLOXACIN <=0.5 S <=0.5 S VANCOMYCIN TOBRAMYCIN 8 R AMPICILLIN/SULBACTAM >16/8 R GENTAMICIN Synergy Screen MEROPENEM <=1 S <=1 S PENICILLIN PIPERACILLIN/TAZOBACTAM <=8 S <=8 S STREPTOMYCIN Synergy Screen TRIMETHOPRIM/SUFLAMETHOXAZOLE <=2/38 S <=2/38 S ASSESSMENT: Chronic left leg ulcer with possible pyoderma gangrenosum, s/p debridement, skin biopsy and wound VAC placement. Left leg with polymicrobial infection. Left lower extremity cellulitis. Leukocytosis, possibly due to the IV steroids.. Diabetes mellitus. Peripheral vascular disease. PLAN: Continue Zosyn. Continue vancomycin per pharmacy protocol. Continue IV steroids. Continue antidiabetics. Continue wound care as recommended by General surgery, currently on wound VAC therapy. Continue pain management. Continue GI prophylaxis. Case management evaluation for referral to [facility]. This case was reviewed and discussed with my supervising physician and the above assessment and plan was formulated and agreed upon. ATTESTATION BY PHYSICIAN I have seen and examined the patient. I reviewed the documentation, medical decision making, and treatment plan as noted by the mid-level provider above. I agree with the findings and plan of care. JUNIE KNOWLES MD, MIRTA L [employer] October 23, 2024 17:42
[2024-10-23] MEDS: INSULIN GLARgine 100 UNITS/ML 10 ML VIAL SQ SCH (20:22)
[2024-10-24] VITALS (8 sets, daily range): BP systolic 123–152; BP diastolic 56–87; PULSE 59–70; RESP 16–19; TEMP 97.4–98.1; O2SAT 97–99
[2024-10-24 04:42] LABS: BASOPHILS # (AUTO) 0.01 K/uL (0.00-0.20); BASOPHILS % (AUTO) 0.1 % (0.0-5.0); HEMATOCRIT 39.7 % (42-54); IMMATURE GRANULOCYTE ABSOLUTE 0.05 K/uL (0-1); LYMPHOCYTES # (AUTO) 1.1 K/uL (1.0-4.8); LYMPHOCYTES % (AUTO) 10.2 % (21.0-51.0); MEAN CORPUSCULAR HEMOGLOBIN 31.2 pg (27.0-33.0); MEAN CORPUSCULAR HGB CONC 34.5 g/dL (32.0-36.0); MEAN CORPUSCULAR VOLUME 90.4 fL (79-99); MONOCYTES # (AUTO) 0.2 K/uL (0.1-1.0); MONOCYTES % (AUTO) 2.3 % (3.0-13.0); NEUTROPHILS # (AUTO) 9.2 K/uL (1.8-7.7); NEUTROPHILS % (AUTO) 86.9 % (40.0-77.0); PLATELET COUNT (AUTO) 313 K/uL (130-400); RED BLOOD CELL COUNT(AUTO) 4.39 MIL/uL (4.50-6.20); RED CELL DISTRIBUTION WIDTH 12.5 % (11.0-15.5); WHITE BLOOD COUNT (AUTO) 10.6 K/uL (4.8-10.8)
[2024-10-24 04:59] LABS: CREATININE 0.7 mg/dL (0.5-1.3); MAGNESIUM 2.2 mg/dL (1.80-2.40); POTASSIUM 3.9 mmol/L (3.5-5.1)
--- NOTE | 2024-10-24 08:38 | HMCIMG ---
Exam Type: CT angiogram abdomen and pelvis and lower extremities run-off with contrast Exam Type: CT ANGIO ABD AORTA W RUNOFF Clinical Information: PAD Comparison: None Technique: Routine helical scanning at 5mm collimation through the abdomen and pelvis after contrast administration. In addition, sagittal and coronary formations of the abdomen pelvis and surface rendering three-dimensional reconstructions of the abdominal aorta and the bilateral lower extremity arterial system were performed. Findings: The examination shows atheromatous plaque throughout, without occlusions. The runoff is preserved bilaterally with flow to the anterior and posterior arches via patent anterior and posterior tibial arteries. There is no aneurysm. There is no occlusion. There is no dissection. There is no extravasation. There is no aortic aneurysm. There is no occlusion. There is no dissection. There is no extravasation to suggest laceration or rupture. No evidence of nephro or ureterolithiasis is found. No hydronephrosis or ureteral dilatation is seen. The visualized portion of the stomach is unremarkable. It shows no wall thickening. No gross ulceration is seen. It is not overly distended. There are no surrounding inflammatory changes. No wall lesions are identified to suggest cancer. The visualized portion of the spleen is unremarkable. It is not enlarged. The pancreas shows normal anatomy. It is not fatty replaced. It shows no lesions. The pancreatic duct is not dilated. The gallbladder is unremarkable. It shows no cholelithiasis. The gallbladder wall is normal in thickness. There is no pericholecystic fluid. The is no acute or chronic inflammation noted. The adrenal glands are unremarkable. There is no enlargement. No lesions are noted. The visualized portion of the liver is unremarkable. It shows no focal masses. The appendix is unremarkable. It shows no evidence of inflammation. No appendicolith is seen. The small bowel is unremarkable. There is no evidence of dilatation to suggest obstruction. No evidence of adynamic ileus is seen. There is no small bowel wall thickening to suggest enteritis. The colon is unremarkable. The urinary bladder is unremarkable. There is no wall thickening to suggest tumor or inflammation. There are no intraluminal calculi. There are no diverticula. There is no evidence of chronic bladder outlet obstruction. There is no evidence of urinary bladder distention to suggest urinary retention. The prostate is enlarged. The bony and vascular structures are unremarkable for the patient's age. IMPRESSION: Preserved runoff bilaterally. This study was performed using dose reduction techniques to include automated exposure control and/or adjustment of the mA and/or kV according to patient size.
--- NOTE | 2024-10-24 10:42 | PN ---
[facility] PROGRESS NOTE Date of Service: October 24, 2024 Time of Service: 10:40 SUBJECTIVE: This is a 74 year old male with past medical history of PVD with PCI ,diabetes,hypertension ,GERD and hyperlipidemia who presents to the ED for complaints of severe pain to left leg ulcer and swelling and he noticed bloody drainage this afternoon so he decided to come to the ED for further evaluati on.Patient reports that this wound started since November 2023 and is doing medihoney dressing everyday but patient has not taken antibiotic.Patient states he had a stent placed by on both lower legs on 08/14/2024. Seen and examined patient in the Ed awake,alert and coherent appears uncomfortable complaints of left leg pain 8/10 pain level.Patient denies,fever,chills,nausea,vomiting,chest pain,palpitation and shortness of breath. Vital signs temperature 98.2 heart rate 72 blood pressure 161/75 saturation 98% on room air. Labs: Hemoglobin 13, hematocrit 41, platelet count 284. Glucose 281 calcitonin less than 0 point 0 five. X-ray of the left leg result revealed there is no acute displaced fracture or dislocation. There is soft tissue swelling. Vascular calcifications are seen. Small calcaneal spur is seen. Evaluation for osteomyelitis is limited with radiographs. Degenerative changes are seen. While in the ER patient received Zosyn IV, morphine 2 mg IV and Zofran 4 mg IV. We will admit patient for further medical management. 10/19/24 The patient was seen and examined today morning. His daughter is at the bedside. He is complaining on and off ulcer pain. Clinically, the ulcer looks like pyoderma gangrenosum. We will check hepatitis panel. Patient may have associated IBD. Infectious disease recommending general surgery and hem & onc. wound culture results pending. Arterial US showed atherosclerotic disease, abnormal monophasic arterial wave for seen in the left distal popliteal, left posterior tibial, anterior tibial and dorsalis pedal arteries with hyperemic flow. 10/20/24 patient was seen and evaluated. Patient underwent debridement of left leg ulcer. Aerobic culture showed 2+ Gram-negative rods, identification and sensitivity pending. Arterial ultrasound showed atherosclerotic disease. Abnormal monophasic waveforms in left distal popliteal, left posterior tibial, anterior tibial and dorsalis pedal arteries with hyperemic flow. We will consult Cardiology for peripheral arterial disease. Hepatitis B and C are nonreactive. Dr. Enciso started him on dexamethasone. Continue Plavix. 10/21/24: Patient was seen and evaluated this morning at bedside. Patient is POD #1 S/P debridement of left leg ulcer. Patient continues on Zosyn and Vancomycin, as per infectious disease recommendations. Pending cardiology recommendations for PAD. Patient continues on Dexamethasone per hematology recommendations. Patient denies bowel movement for 3 days, Miralax has been ordered. 10/22/2024 Patient is seen and examined at the bedside. He is postop day 2 s/p debridement of left leg ulcer. Vitals blood pressure 152/72. He complains of moderate pain in his left lower extremity. He did not have a bowel movement yet, lactulose has been ordered. Labs WBC increased from 11.3-15.2, glucose 210. aerobic cultures of the left leg ulcer resulted in E coli, Enterococcus faecalis and Proteus mirabilis. Pending cardiology consult. 10/23/24 patient was seen and evaluated in the morning. Cardiology Consult appreciated and recommended continue aspirin 81, [id number] and atorvastatin 40 mg. Patient just came back from CTA runoff and pending results. He is complaining of mild pain on his left calf. WBC trending down 15.2-12.4 today. His glucose level has been high and we will adjust the insulin regimen. Plan is to send him to [facility]. Case management consulted and we will wait for insurance approval. Continue wound VAC, IV Zosyn and vancomycin. 10/24/24 patient was seen and examined. Patient is complaining of mild left calf pain. Patient has also been having a lot of hiccups for the last 3 days. We will increase the dose of gabapentin to 200 t.i.d.. We will also obtain CT abdomen without contrast to rule out any abscess or perforation. WBC trending down from 12.4-10.6 today, hemoglobin 13.7. CMP unremarkable. CTA runoff showed preserved flow bilaterally. Management will take off the wound VAC today and evaluate and may put back the wound VAC if needed. Plan is for Solera placement. REVIEW OF SYSTEMS CONSTITUTIONAL: Denies fevers, chills, or night sweats. No unintentional weight loss reported. NEUROLOGICAL: Denies headache, amaurosis fugax, motor weakness, sensory deficit, vertigo/spinning sensation, gait abnormalities, or tremors. ENT: No hearing loss, otalgia, otorrhea, rhinitis, rhinorrhea, hoarseness, or sore throat. CARDIOVASCULAR: Denies any exertional angina, dyspnea on exertion, orthopnea, paroxysmal nocturnal dyspnea, palpitations, life-threatening arrhythmias, claudication. PULMONARY: Denies any shortness of breath, cough, phlegm/sputum, hemoptysis, pleuritic chest pain. SLEEP: Denies morning headaches, daytime somnolence or napping. Denies difficulty falling asleep, staying asleep, waking from sleep. Denies knowledge of snoring. GASTROINTESTINAL: Denies any type of dysphagia to either liquids or solids. Denies nausea, vomiting, pyrosis, early satiety, abdominal pain, diarrhea, constipation, or changes in stool consistency or caliber. Denies coffee-ground emesis, hematemesis, hematochezia, or melanotic stools. GENITOURINARY: Denies frequency, urgency, nocturia, hematuria or incontinence (Storage/Irritative symptoms.) Low urinary stream, straining to void, urinary intermittency or hesitancy, splitting of the voiding stream, terminal dribbling. ENDOCRINOLOGIC: Denies polyuria, polydipsia, polyphagia or heat/cold intolerances. HEMATOLOGIC: Denies thrombophilia/previous clots, or coagulopathy/bleeding disorders. ONCOLOGIC: Denies personal history of malignancy. DERMATOLOGIC: Denies rashes or pruritus. PSYCHIATRIC: Denies any suicidal or homicidal ideation. Denies hallucinations. PHYSICAL EXAM GENERAL APPEARANCE: The patient is awake, alert, and oriented, in no acute cardiopulmonary distress. NEUROLOGICAL: Cranial nerves II-XII grossly intact. Motor is 5/5 in bilateral upper and lower extremities proximal to distal. No sensory deficits. HEENT: Face is symmetric. Pupils are equal and reactive. Extraocular movements are intact. NECK: Supple. No JVD. No thyromegaly. No submental, submandibular, pre- /postauricular, occipital or supraclavicular lymphadenopathy. CHEST: Normal chest expansion. No Telemetry. LUNGS: Absence of any rales, rhonchi or any wheezing. CARDIOVASCULAR: Regular. S1 and S2 normal. No appreciable rubs, murmurs or gallops. ABDOMEN: Soft, nontender, and nondistended. There is no rebound, voluntary guarding, or rigidity. : Deferred. No Bonilla. EXTREMITIES: Non-edematous and not cyanotic. No clubbing. Good capillary refill. Wound VAC on left calf SKIN: Non healing wound ulcer to left leg. Vital Signs (last 8hr) Date Time Temp Pulse Resp B/P (MAP) Pulse Ox O2 Delivery O2 Flow Rate FiO2 10/24/24 04:00 98.1 59 17 123/56 98 Room Air 21 LABS: Laboratory: Test 10/24/24 05:17 10/24/24 04:14 10/23/24 08:16 10/23/24 04:00 Range/Units Whole Blood Glucose 221 H 70-110 MG/DL White Blood Count 10.6 4.8-10.8 K/uL Red Blood Count 4.39 L 4.50-6.20 MIL/uL Hemoglobin 13.7 L 14.0-18.0 g/dL Hematocrit 39.7 L 42-54 % Mean Corpuscular Volume 90.4 79-99 fL Mean Corpuscular Hemoglobin 31.2 27.0-33.0 pg Mean Corpuscular Hemoglobin Concent 34.5 32.0-36.0 g/dL Red Cell Distribution Width 12.5 11.0-15.5 % Platelet Count 313 130-400 K/uL Mean Platelet Volume 10.5 7.5-10.5 fL Immature Granulocyte % (Auto) 0.5 0-1 % Neutrophils (%) (Auto) 86.9 H 40.0-77.0 % Lymphocytes (%) (Auto) 10.2 L 21.0-51.0 % Monocytes (%) (Auto) 2.3 L 3.0-13.0 % Eosinophils (%) (Auto) 0.0 0.0-8.0 % Basophils (%) (Auto) 0.1 0.0-5.0 % Neutrophils # (Auto) 9.2 H 1.8-7.7 K/uL Lymphocytes # (Auto) 1.1 1.0-4.8 K/uL Monocytes # (Auto) 0.2 0.1-1.0 K/uL Eosinophils # (Auto) 0.00 0.00-0.70 K/uL Basophils # (Auto) 0.01 0.00-0.20 K/uL Absolute Immature Granulocyte (auto 0.05 0-1 K/uL Nucleated Red Blood Cells 0.0 0.0-0.19 % Sodium Level 138 136-145 mmol/L Potassium Level 3.9 3.5-5.1 mmol/L Chloride Level 104 101-111 mmol/L Carbon Dioxide Level 26 21-32 mmol/L Blood Urea Nitrogen 21 H 7-18 mg/dL Creatinine 0.7 0.5-1.3 mg/dL Glomerular Filtration Rate Calc 97 >90 mL/min Random Glucose 234 H 70-105 mg/dL Total Calcium 8.7 8.5-10.1 mg/dL Magnesium Level 2.20 1.80-2.40 mg/dL Vancomycin Level Trough 10.5 # 10.0-20.0 UG/ML Hemoglobin A1c 10.0 H 4.0-6.0 % Estimated Average Glucose (eAG) 240 H 70-126 mg/dL Triglycerides Level 53 30-200 mg/dL Cholesterol Level 145 <200 mg/dL LDL Cholesterol 71 0-99 mg/dL HDL Cholesterol 60 29-71 mg/dL Current Medications Medications (Trade) Dose Ordered Sig/Dorinda Route PRN Reason Start Time Stop Time Status Last Admin Dose Admin Acetaminophen (TYLenol 325MG TAB) 650 mg Q4H PRN PO MILD PAIN (1-3) 10/18/24 20:00 11/17/24 19:59 Acetaminophen (TYLenol 325MG TAB) 650 mg Q6H PRN PO TEMPERATURE GREATER THAN 101.5 10/18/24 20:00 11/17/24 19:59 Acetaminophen/ Codeine Phosphate (TYLenol-coDEINE TAB) 2 tab Q6H PRN PO SEVERE PAIN (7-10) 10/19/24 09:30 10/23/24 06:36 DC 10/19/24 16:45 2 TAB Aspirin (Aspirin 81mg Ec Tab) 81 mg DAILY PO 10/23/24 09:00 11/22/24 08:59 10/24/24 09:03 81 MG Atorvastatin Calcium (LIPItor 10MG) 5 mg HS PO 10/19/24 21:00 10/22/24 15:33 DC 10/21/24 21:49 5 MG Atorvastatin Calcium (LIPItor 40MG) 40 mg HS PO 10/22/24 21:00 11/21/24 20:59 10/23/24 20:13 40 MG Clopidogrel Bisulfate (plaVIX 75MG) 75 mg DAILY PO 10/20/24 09:00 11/19/24 08:59 10/24/24 09:03 75 MG Dexamethasone Sodium Phosphate (dexaMETHasone 4MG/ML 1ML VIAL) 20 mg Q24H IV 10/20/24 13:30 10/20/24 13:23 DC Dexamethasone Sodium Phosphate 20 mg/Sodium Chloride 50 ml @ 100 mls/hr Q24H IV 10/20/24 14:00 10/23/24 14:56 DC 10/22/24 15:05 100 MLS/HR Dexamethasone Sodium Phosphate 20 mg/Sodium Chloride 50 ml @ 100 mls/hr Q24H IV 10/23/24 15:00 11/22/24 14:59 10/23/24 15:35 100 MLS/HR Dextrose (D50w) 50 ml AD PRN IV HYPOGLYCEMIA PROTOCOL 10/18/24 20:00 11/17/24 19:59 Enoxaparin Sodium (Lovenox) 30 mg DAILY SQ 10/19/24 16:00 11/18/24 15:59 10/24/24 09:05 30 MG Famotidine (Pepcid 20mg Tab) 20 mg BID PO 10/18/24 21:00 11/17/24 20:59 10/24/24 09:03 20 MG Gabapentin (NEURontin 100 mg CAP) 100 mg TID PO 10/19/24 21:00 11/18/24 20:59 10/24/24 09:04 100 MG Glucagon (Glucagon 1mg Kit) 1 mg AD PRN IM HYPOGLYCEMIA PROTOCOL 10/18/24 20:00 11/17/24 19:59 Hydrochlorothiazide (hydroCHLOROthiazide 25MG) 12.5 mg DAILY PO 10/20/24 09:00 11/19/24 08:59 10/24/24 09:04 12.5 MG Hydromorphone HCl (DiLAUDid 1MG INJ) 1 mg Q3H3 PRN IVP SEVERE PAIN (7-10) 10/20/24 11:30 10/25/24 11:29 10/21/24 18:56 1 MG Insulin Glargine (LANtus 100 UNITS/ML 10 ML VIAL) 20 units HS SQ 10/19/24 21:00 10/23/24 13:56 DC 10/22/24 20:27 20 UNITS Insulin Glargine (LANtus 100 UNITS/ML 10 ML VIAL) 30 units HS SQ 10/23/24 21:00 11/22/24 20:59 10/23/24 20:22 30 UNITS Insulin Human Lispro (HumaLOG LISpro 100 UNIT/ML 3ML) 3 unit TIDAC SQ 10/23/24 17:00 11/22/24 16:59 10/24/24 07:06 3 UNIT Insulin Human Regular (humuLIN R 100 UNIT/ML 3ML) INSULIN SLIDING SCAL... ACHS SQ 10/18/24 21:00 11/17/24 20:59 10/24/24 07:07 3 UNIT Leptospermum Honey (Medihoney) 1 appl DAILY TP 10/20/24 09:00 11/19/24 08:59 10/20/24 07:40 1 APPL Losartan Potassium (CozAAR 25MG TAB) 25 mg DAILY PO 10/20/24 09:00 11/19/24 08:59 10/24/24 09:03 25 MG Magnesium Sulfate 50 ml @ 0 mls/hr PROTOCOL PRN IV OTHER [SEE ORDER COMMENTS] 10/18/24 20:00 11/17/24 19:59 Morphine Sulfate (morPHINE 2MG SYG) 2 mg ONCE STAT IVP 10/18/24 19:33 10/18/24 19:38 DC 10/18/24 20:04 2 MG Morphine Sulfate (morPHINE 2MG SYG) 2 mg Q4H PRN IV MODERATE PAIN (4-6) 10/18/24 20:00 10/23/24 06:36 DC 10/22/24 04:13 2 MG Multivitamins Therapeutic (Multivitamin Tablet) 1 tab DAILY PO 10/20/24 09:00 11/19/24 08:59 10/24/24 09:04 1 TAB Ondansetron HCl (zoFRAN 4MG INJ) 4 mg ONCE STAT IVP 10/18/24 19:33 10/18/24 19:38 DC 10/18/24 20:04 4 MG Ondansetron HCl (zoFRAN 4MG INJ) 4 mg Q6H PRN IV NAUSEA/VOMITING 10/18/24 20:00 11/17/24 19:59 10/20/24 02:40 4 MG Oxycodone/ Acetaminophen (perCOCET) 1 tab Q4H PRN PO SEVERE PAIN (7-10) 10/20/24 11:30 10/27/24 11:29 10/23/24 20:46 1 TAB Piperacillin Sod/ Tazobactam Sod 50 ml @ 12.5 mls/hr Q8H IV 10/19/24 04:00 10/29/24 03:59 10/24/24 04:13 12.5 MLS/HR Piperacillin Sod/ Tazobactam Sod (Zosyn 3.375gm+NS 50ml) 3.375 gm ONCE STAT IV 10/18/24 19:31 10/18/24 19:38 DC 10/18/24 20:04 3.375 GM Potassium Chloride 100 ml @ 100 mls/hr AD PRN IV POTASSIUM PROTOCOL 10/18/24 20:00 11/17/24 19:59 Potassium Chloride (K-Dur/Klor-Con 20meq) 20 meq AD PRN PO POTASSIUM PROTOCOL 10/18/24 20:00 11/17/24 19:59 10/21/24 14:53 20 MEQ Potassium Chloride (KCl 10% Elixir 20meq/15ml) 20 meq AD PRN PO POTASSIUM PROTOCOL 10/18/24 20:00 11/17/24 19:59 Vancomycin HCl 250 ml @ 125 mls/hr ONCE IV 10/18/24 20:00 10/18/24 20:20 DC Vancomycin HCl 250 ml @ 125 mls/hr Q12H IV 10/21/24 21:00 10/31/24 20:59 10/24/24 09:08 125 MLS/HR Vancomycin HCl (Vancomycin 750mg) 750 mg Q12H IVPB 10/19/24 09:00 10/21/24 21:00 DC 10/21/24 08:44 750 MG Vancomycin HCl (Vancomycin Protocol) 1 each AD IV 10/18/24 20:30 11/01/24 20:29 DIAGNOSTICS / RADIOLOGY: [address] [address] IMAGING REPORT Signed PATIENT: GENIE GONZALES MR#: [id number] : 1950 SEX: M AGE: 74 LOCATION: 3AH ORDER 1627 STATUS: ADM IN REPORT#: [id number] SERVICE 0800 REASON: PAD ORDERING PHYSICIAN: FLORIN KNOX SEC ACCOUNTANT PROCEDURE: CTA ABDAOR - CT ANGIO ABD AORTA W RUNOFF Exam Type: CT angiogram abdomen and pelvis and lower extremities run-off with contrast Exam Type: CT ANGIO ABD AORTA W RUNOFF Clinical Information: PAD Comparison: None Technique: Routine helical scanning at 5mm collimation through the abdomen and pelvis after contrast administration. In addition, sagittal and coronary formations of the abdomen pelvis and surface rendering three-dimensional reconstructions of the abdominal aorta and the bilateral lower extremity arterial system were performed. Findings: The examination shows atheromatous plaque throughout, without occlusions. The runoff is preserved bilaterally with flow to the anterior and posterior arches via patent anterior and posterior tibial arteries. There is no aneurysm. There is no occlusion. There is no dissection. There is no extravasation. There is no aortic aneurysm. There is no occlusion. There is no dissection. There is no extravasation to suggest laceration or rupture. No evidence of nephro or ureterolithiasis is found. No hydronephrosis or ureteral dilatation is seen. The visualized portion of the stomach is unremarkable. It shows no wall thickening. No gross ulceration is seen. It is not overly distended. There are no surrounding inflammatory changes. No wall lesions are identified to suggest cancer. The visualized portion of the spleen is unremarkable. It is not enlarged. The pancreas shows normal anatomy. It is not fatty replaced. It shows no lesions. The pancreatic duct is not dilated. The gallbladder is unremarkable. It shows no cholelithiasis. The gallbladder wall is normal in thickness. There is no pericholecystic fluid. The is no acute or chronic inflammation noted. The adrenal glands are unremarkable. There is no enlargement. No lesions are noted. The visualized portion of the liver is unremarkable. It shows no focal masses. The appendix is unremarkable. It shows no evidence of inflammation. No appendicolith is seen. The small bowel is unremarkable. There is no evidence of dilatation to suggest obstruction. No evidence of adynamic ileus is seen. There is no small bowel wall thickening to suggest enteritis. The colon is unremarkable. The urinary bladder is unremarkable. There is no wall thickening to suggest tumor or inflammation. There are no intraluminal calculi. There are no diverticula. There is no evidence of chronic bladder outlet obstruction. There is no evidence of urinary bladder distention to suggest urinary retention. The prostate is enlarged. The bony and vascular structures are unremarkable for the patient's age. IMPRESSION: Preserved runoff bilaterally. This study was performed using dose reduction techniques to include automated exposure control and/or adjustment of the mA and/or kV according to patient size. DICTATED BY: RUPA PACK MD DATE: 10/24/24828 ELECTRONICALLY SIGNED BY: RUPA PACK MD DATE: 10/24/24 0832 [facility] [address] [place] [id number] IMAGING REPORT Signed PATIENT: GENIE GONZALES MR#: [id number] : 1950 SEX: M AGE: 74 LOCATION: EDHIP ORDER 08 STATUS: ADM IN REPORT#: [id number] SERVICE 04 REASON: pain and swelling to left lower extremity ORDERING PHYSICIAN: DIANA BLACK SEC ACCOUNTANT PROCEDURE: VENOUS UNI - US VENOUS DOPPLER UNILATERAL US VENOUS DOPPLER UNILATERAL HISTORY: Pain and swelling COMPARISON: None TECHNIQUE: Left lower extremity venous Doppler ultrasound study was performed. FINDINGS: The left common femoral, femoral, popliteal, and posterior tibial veins are visualized. Normal flow with augmentation and compressibilities are demonstrated. Left greater saphenous vein is patent. IMPRESSION: 1. No evidence of deep venous thrombosis is seen. DICTATED BY: PRAKASH MACK MD DATE: 10/18/242050 ELECTRONICALLY SIGNED BY: PRAKASH MACK MD DATE: 10/18/242053 [place] [id number] [id number] IMAGING REPORT Signed PATIENT: GENIE GONZALES MR#: [id number] : 1950 SEX: M AGE: 74 LOCATION: 3AH ORDER 08 [facility]: [facility] REPORT#: [id number] SERVICE 04 REASON: pain and swelling to left lower extremity ORDERING PHYSICIAN: DIANA BLACK SEC ACCOUNTANT PROCEDURE: ART U LE - US ARTERIAL UNILA LOW EXT DUPL US ARTERIAL UNILA LOW EXT DUPL HISTORY: Pain and swelling COMPARISON: None TECHNIQUE: Left lower extremity arterial Doppler ultrasound study was performed. FINDINGS: Abnormal monophasic arterial waveforms are seen in the left distal popliteal, left posterior tibial, anterior tibial and dorsalis pedal arteries with hyperemic flow. Normal triphasic and biphasic arterial waveforms are noted in the left common femoral, deep femoral, superficial femoral, and popliteal arteries. On the left, the peak systolic velocity of the common femoral artery is 123 cm/s, the proximal femoral artery is 164 cm/s, the mid femoral artery is 95 cm/s, the distal femoral artery is 63 cm/s, the proximal popliteal artery is 78 cm/s, the distal popliteal artery is 75 cm/s, the anterior tibial artery is 21 cm/s, the posterior tibial artery artery is 200 cm/s,and the dorsalis pedal artery is 17 cm/s. IMPRESSION: 1. Atherosclerotic disease. 2. Abnormal monophasic arterial waveforms are seen in the left distal popliteal, left posterior tibial, anterior tibial and dorsalis pedal arteries with hyperemic flow. DICTATED BY: PRAKASH MACK MD DATE: 10/19/24 0953 ELECTRONICALLY SIGNED BY: PRAKASH MACK MD DATE: 10/19/[address] [address] IMAGING REPORT Signed PATIENT: GENIE GONZALES MR#: [id number] : 1950 SEX: M AGE: 74 LOCATION: EDH ORDER 1611 STATUS: [facility] REPORT#: [id number] SERVICE 1609 REASON: wound ORDERING PHYSICIAN: BONITA FIGUEROA NP PROCEDURE: TIBFIB LT - TIBIA/FIBULA 2VWS LT TIBIA/FIBULA 2VWS LT HISTORY: Wound COMPARISON: None TECHNIQUE: 2 images of the left tibia and fibula were obtained. FINDINGS: There is no acute displaced fracture or dislocation. There is soft tissue swelling. Vascular calcifications are seen. Small calcaneal spur is seen. Evaluation for osteomyelitis is limited with radiographs. Degenerative changes are seen. IMPRESSION: 1. Findings as described above. DICTATED BY: PRAKASH MACK MD DATE: 10/18/24 1637 ELECTRONICALLY SIGNED BY: PRAKASH MACK MD DATE: 10/18/24 1640 ASSESSMENT: Chronic left leg ulcer with suspected pyoderma gangrenosum, s/p debridement, skin biopsy and wound VAC placement. Left lower extremity cellulitis. Diabetic leg ulcer with 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 Continue on heart healthy and consistent carb diet Suspected Pyoderma Gangrenosum Clinically, the ulcer looks like pyoderma gangrenosum. Hepatitis panel nonreactive. Continue IV Vancomycin and Zosyn as per ID consult recommendation Patient had undergone debridement of left lower leg on 10/20/24 by general surgery consult. The aerobic culture is positive for Enterococcus faecalis, Enterobacter or manage she, E coli and Proteus mirabilis. Continue IV dexamethasone 20 mg 50 ml @ 100 ml/hour as per Hematology consult recommendation. 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 Continue IV vancomycin and IV zosyn. Aerobic wound culture showed an E coli, Enterococcus faecalis, Proteus mirabilis. History of PVD with PCI Continue Clopidogrel. Arterial ultrasound showed atherosclerotic disease. Abnormal monophasic waveforms in left distal popliteal, left posterior tibial, anterior tibial and d orsalis pedal arteries with hyperemic flow. Consultation with Cardiology appreciated and recommended aspirin 81, [id number] and atorvastatin 40 mg. CTA runoff showed preserved flow bilaterally. Uncontrolled diabetes POA Continue glucose checks AC & HS. Follow insulin sliding scale with hypoglycemia protocol HbA1c is 10.3% on admission. Glucose level in the morning to 221. Continue Lantus to 30 units HS and 4 units of insulin lispro t.i.d. pre meals. We will increase the dose of gabapentin to 200 mg t.i.d. Hypertension POA Continue home medication Losartan and hydrochlorothiazide. Hyperlipidemia POA Continue 40 mg atorvastatin. We will get CT abdomen without contrast to rule out any perforation or abscess. Case management is consulted for Solara placement. Pending on insurance approval. Lovenox 30 mg SQ daily for DVT prophylaxis Famotidine 20 mg p.o. bid for GI prophylaxis PRN medication for fever,pain,cough ,nausea and vomiting. ATTESTATION BY PHYSICIAN I have seen and examined the patient. I reviewed the documentation, medical decision making, and treatment plan as noted by the resident provider above. I agree with the findings and plan of care. Gurmeet Rivas MD, KRUPALI P MD October 24, 2024 10:42
[2024-10-24] MEDS: INSULIN LISpro 100 UNIT/ML 3ML SQ SCH (11:30)
--- NOTE | 2024-10-24 12:35 | NUR ---
[facility] Follow-up: Patient re-assessed by wound healing team. See wound assessment. Assessment and recommendations provided to primary nurse. Education provided. Wound vac changed. Addendum: 10/27/24 at 0928 by ANAI SALOMON RN RN/ Amended: Links added.
[2024-10-24] MEDS: GABApentin 100 MG CAPSULE PO SCH (13:41)
--- NOTE | 2024-10-24 14:49 | PN ---
INFECTIOUS DISEASE PROGRESS NOTE Date of Service: October 24, 2024 SUBJECTIVE: This is a 74-year-old male patient who was seen and examined at bedside in room 303. Patient is awake, alert and oriented x3. Patient is s/p debridement and skin biopsy of left leg wound and wound VAC placement on 10/20/2024. Patient is being referred to [facility] for IV antibiotics and wound care. Patient is afebrile, temperature is 97.5. We will continue vancomycin and Zosyn IV. PHYSICAL EXAM EYES: Anicteric. Pupils equal and reactive. HENT: No oral thrush seen, moist Oral mucosa NECK: Supple, no JVD or thyromegaly. LUNGS: Good air entry. No rales, no rhonchi. CARDIOVASCULAR: S1, S2 regular. No murmur heard. ABDOMEN: Soft, non tender, bowel sounds present, no organomegaly CENTRAL NERVOUS SYSTEM: Awake, alert, oriented x 3. SKIN: No rashes, no swelling. LYMPHATICS: No peripheral lymphadenopathy MUSCULOSKELETAL: No joint swelling, erythema or tenderness. EXTREMITIES: No cyanosis or clubbing. Chronic left leg ulcer with possible pyoderma gangrenosum BACK: No deformity, no pressure ulcer. GENITOURINARY: No dysuria or hematuria Vital Sign (Last 12 Hours) 10/24/24 10/24/24 10/24/24 04:00 08:00 12:00 Temp 98.1 97.3 97.5 Pulse 59 64 60 Resp 17 16 17 B/P (MAP) 123/56 152/80 140/74 Pulse Ox 98 99 100 O2 Delivery Room Air Room Air Room Air FiO2 21 Intake & Output (last 24hrs) 10/23/24 10/23/24 10/24/24 15:00 23:00 07:00 Intake Total 250 ml 300 ml Output Total 1300 ml 400 ml Balance -1050 ml -100 ml LABS: Laboratory: Test 10/24/24 11:52 10/24/24 04:14 10/23/24 08:16 10/23/24 04:00 Range/Units Whole Blood Glucose 145 H 70-110 MG/DL White Blood Count 10.6 4.8-10.8 K/uL Red Blood Count 4.39 L 4.50-6.20 MIL/uL Hemoglobin 13.7 L 14.0-18.0 g/dL Hematocrit 39.7 L 42-54 % Mean Corpuscular Volume 90.4 79-99 fL Mean Corpuscular Hemoglobin 31.2 27.0-33.0 pg Mean Corpuscular Hemoglobin Concent 34.5 32.0-36.0 g/dL Red Cell Distribution Width 12.5 11.0-15.5 % Platelet Count 313 130-400 K/uL Mean Platelet Volume 10.5 7.5-10.5 fL Immature Granulocyte % (Auto) 0.5 0-1 % Neutrophils (%) (Auto) 86.9 H 40.0-77.0 % Lymphocytes (%) (Auto) 10.2 L 21.0-51.0 % Monocytes (%) (Auto) 2.3 L 3.0-13.0 % Eosinophils (%) (Auto) 0.0 0.0-8.0 % Basophils (%) (Auto) 0.1 0.0-5.0 % Neutrophils # (Auto) 9.2 H 1.8-7.7 K/uL Lymphocytes # (Auto) 1.1 1.0-4.8 K/uL Monocytes # (Auto) 0.2 0.1-1.0 K/uL Eosinophils # (Auto) 0.00 0.00-0.70 K/uL Basophils # (Auto) 0.01 0.00-0.20 K/uL Absolute Immature Granulocyte (auto 0.05 0-1 K/uL Nucleated Red Blood Cells 0.0 0.0-0.19 % Sodium Level 138 136-145 mmol/L Potassium Level 3.9 3.5-5.1 mmol/L Chloride Level 104 101-111 mmol/L Carbon Dioxide Level 26 21-32 mmol/L Blood Urea Nitrogen 21 H 7-18 mg/dL Creatinine 0.7 0.5-1.3 mg/dL Glomerular Filtration Rate Calc 97 >90 mL/min Random Glucose 234 H 70-105 mg/dL Total Calcium 8.7 8.5-10.1 mg/dL Magnesium Level 2.20 1.80-2.40 mg/dL Vancomycin Level Trough 10.5 # 10.0-20.0 UG/ML Hemoglobin A1c 10.0 H 4.0-6.0 % Estimated Average Glucose (eAG) 240 H 70-126 mg/dL Triglycerides Level 53 30-200 mg/dL Cholesterol Level 145 <200 mg/dL LDL Cholesterol 71 0-99 mg/dL HDL Cholesterol 60 29-71 mg/dL ASSESSMENT: Chronic left leg ulcer with possible pyoderma gangrenosum, s/p debridement, skin biopsy and wound VAC placement on 10/20/2024. Left leg with polymicrobial infection. Left lower extremity cellulitis. Leukocytosis, possibly due to the IV steroids.. Diabetes mellitus. Peripheral vascular disease. PLAN: Continue Zosyn. Continue vancomycin per pharmacy protocol. Continue IV steroids. Continue antidiabetics. Continue wound care as recommended by General surgery, currently on wound VAC therapy. Continue pain management. Continue GI prophylaxis. Case management evaluation for referral to [facility]. This case was reviewed and discussed with my supervising physician and the above assessment and plan was formulated and agreed upon. ATTESTATION BY PHYSICIAN I have seen and examined the patient. I reviewed the documentation, medical decision making, and treatment plan as noted by the mid-level provider above. I agree with the findings and plan of care. JUNIE KNOWLES MD, MIRTA L D[employer] PROGRAM MANAGER October 24, 2024 14:49
--- NOTE | 2024-10-24 16:20 | PN ---
[facility] CARDIOLOGY PROGRESS NOTE Date Patient Seen: October 24, 2024 Time of Visit: 16:18 Problem List: [ Bilateral lower extremity PAD. Hypertension Type 2 diabetes Hyperlipidemia] Interval History: No acute events overnight Patient denies complaints Physical Examination: GENERAL: [No acute distress.] HEAD: [Normal with no signs of head trauma.] NECK: [ Normal carotid upstrokes without bruits.] LUNGS: [Clear breath sounds bilaterally. No wheezes, or rhonchi.] HEART: [Normal rate and rhythm. Normal S1 and S2 without murmurs, gallop or rub.] VASC: [Peripheral pulses +2 bilaterally.] EXT: [No clubbing, cyanosis or edema.] SKIN: [Left calf ulcer and wound VAC in place] NEURO: [Awake, alert, and oriented x3. No focal sensory or strength deficits noted.] Laboratory: [ ] Hematology Labs: Test 10/24/24 04:14 Range/Units White Blood Count 10.6 4.8-10.8 K/uL Red Blood Count 4.39 L 4.50-6.20 MIL/uL Hemoglobin 13.7 L 14.0-18.0 g/dL Hematocrit 39.7 L 42-54 % Mean Corpuscular Volume 90.4 79-99 fL Mean Corpuscular Hemoglobin 31.2 27.0-33.0 pg Mean Corpuscular Hemoglobin Concent 34.5 32.0-36.0 g/dL Red Cell Distribution Width 12.5 11.0-15.5 % Platelet Count 313 130-400 K/uL Mean Platelet Volume 10.5 7.5-10.5 fL Immature Granulocyte % (Auto) 0.5 0-1 % Neutrophils (%) (Auto) 86.9 H 40.0-77.0 % Lymphocytes (%) (Auto) 10.2 L 21.0-51.0 % Monocytes (%) (Auto) 2.3 L 3.0-13.0 % Eosinophils (%) (Auto) 0.0 0.0-8.0 % Basophils (%) (Auto) 0.1 0.0-5.0 % Neutrophils # (Auto) 9.2 H 1.8-7.7 K/uL Lymphocytes # (Auto) 1.1 1.0-4.8 K/uL Monocytes # (Auto) 0.2 0.1-1.0 K/uL Eosinophils # (Auto) 0.00 0.00-0.70 K/uL Basophils # (Auto) 0.01 0.00-0.20 K/uL Absolute Immature Granulocyte (auto 0.05 0-1 K/uL Nucleated Red Blood Cells 0.0 0.0-0.19 % Chemistry Labs: Test 10/24/24 11:52 10/24/24 04:14 10/23/24 04:00 Range/Units Whole Blood Glucose 145 H 70-110 MG/DL Sodium Level 138 136-145 mmol/L Potassium Level 3.9 3.5-5.1 mmol/L Chloride Level 104 101-111 mmol/L Carbon Dioxide Level 26 21-32 mmol/L Blood Urea Nitrogen 21 H 7-18 mg/dL Creatinine 0.7 0.5-1.3 mg/dL Glomerular Filtration Rate Calc 97 >90 mL/min Random Glucose 234 H 70-105 mg/dL Total Calcium 8.7 8.5-10.1 mg/dL Magnesium Level 2.20 1.80-2.40 mg/dL Hemoglobin A1c 10.0 H 4.0-6.0 % Estimated Average Glucose (eAG) 240 H 70-126 mg/dL Triglycerides Level 53 30-200 mg/dL Cholesterol Level 145 <200 mg/dL LDL Cholesterol 71 0-99 mg/dL HDL Cholesterol 60 29-71 mg/dL Impression and Plan: [LLE cellulitis, nonhealing left calf ulcer S/p debridement and drainage of infected left leg wound with skin and fat biopsy and wound VAC placement on 10/20/[address] Betancourt. PAD s/p RLE PVI x1 and LLE PVI x2 with the latest done in July 2024 by the PAD specialist in [place], [place] Left lower extremity arterial Doppler on 10/18/2024 demonstrated abnormal monophasic waveforms in the left distal popliteal, left posterior tibial, anterior tibial and dorsalis pedal arteries with hyperemic flow Hypertension Hyperlipidemia Diabetes mellitus type 2 CTA runoff study shows atherosclerotic disease however no significant occlusions to warrant invasive peripheral angiography. Continue with aggressive wound care Continue with antiplatelet therapy and lipid lowering therapy (statin) with goal LDL <100 Cardiology to sign off at this time. Please call if questions arise. SAMIRA BRANDON DO October 24, 2024 16:20
[2024-10-25] VITALS (8 sets, daily range): BP systolic 116–153; BP diastolic 62–76; PULSE 55–97; RESP 16–20; TEMP 97.4–98.8; O2SAT 96–99
[2024-10-25 05:06] LABS: BASOPHILS # (AUTO) 0.01 K/uL (0.00-0.20); BASOPHILS % (AUTO) 0.1 % (0.0-5.0); IMMATURE GRANULOCYTE ABSOLUTE 0.06 K/uL (0-1); LYMPHOCYTES # (AUTO) 1.6 K/uL (1.0-4.8); LYMPHOCYTES % (AUTO) 14.5 % (21.0-51.0); MEAN CORPUSCULAR HEMOGLOBIN 31.2 pg (27.0-33.0); MEAN CORPUSCULAR HGB CONC 34.4 g/dL (32.0-36.0); MEAN CORPUSCULAR VOLUME 90.9 fL (79-99); MONOCYTES # (AUTO) 0.7 K/uL (0.1-1.0); NEUTROPHILS % (AUTO) 78.9 % (40.0-77.0); PLATELET COUNT (AUTO) 340 K/uL (130-400); RED BLOOD CELL COUNT(AUTO) 4.29 MIL/uL (4.50-6.20); RED CELL DISTRIBUTION WIDTH 12.6 % (11.0-15.5); WHITE BLOOD COUNT (AUTO) 11.3 K/uL (4.8-10.8)
[2024-10-25 05:17] LABS: CREATININE 0.7 mg/dL (0.5-1.3); MAGNESIUM 2.2 mg/dL (1.80-2.40); POTASSIUM 3.8 mmol/L (3.5-5.1)
--- NOTE | 2024-10-25 09:49 | HMCIMG ---
CT ABDOMEN W/O CONTRAST HISTORY: Hiccups COMPARISON: 10/24/2019 TECHNIQUE: Multiple sequential axial images of the abdomen were obtained from the dome of the diaphragm through iliac crests. Patient was not given contrast through intravenous route. Oral contrast was not given. FINDINGS: No pleural effusion is seen bilaterally. There is no evidence of parenchymal disease or pulmonary nodule of the visualized lower lungs. Degenerative changes are seen of the thoracolumbar spine. The liver measures 17 cm. Gallbladder is distended. The liver, spleen, adrenal glands and pancreas are unremarkable. There is no evidence of hydronephrosis bilaterally. No evidence of renal stone is seen. Fecal material is seen in the colon. There are normal-sized retroperitoneal and mesenteric lymph nodes. No ascites is seen. Atherosclerotic changes are present. IMPRESSION: 1. No acute finding. CT was performed with one or more following dose reduction techniques: automated exposure control, adjustment of the mA and kv according to patient's size, or use of a iterative reconstruction technique.
--- NOTE | 2024-10-25 11:19 | PN ---
[facility] PROGRESS NOTE Date of Service: October 25, 2024 Time of Service: 11:12 SUBJECTIVE: This is a 74 year old male with past medical history of PVD with PCI ,diabetes,hypertension ,GERD and hyperlipidemia who presents to the ED for complaints of severe pain to left leg ulcer and swelling and he noticed bloody drainage this afternoon so he decided to come to the ED for further evaluati on.Patient reports that this wound started since November 2023 and is doing medihoney dressing everyday but patient has not taken antibiotic.Patient states he had a stent placed by on both lower legs on 08/14/2024. Seen and examined patient in the Ed awake,alert and coherent appears uncomfortable complaints of left leg pain 8/10 pain level.Patient denies,fever,chills,nausea,vomiting,chest pain,palpitation and shortness of breath. Vital signs temperature 98.2 heart rate 72 blood pressure 161/75 saturation 98% on room air. Labs: Hemoglobin 13, hematocrit 41, platelet count 284. Glucose 281 calcitonin less than 0 point 0 five. X-ray of the left leg result revealed there is no acute displaced fracture or dislocation. There is soft tissue swelling. Vascular calcifications are seen. Small calcaneal spur is seen. Evaluation for osteomyelitis is limited with radiographs. Degenerative changes are seen. While in the ER patient received Zosyn IV, morphine 2 mg IV and Zofran 4 mg IV. We will admit patient for further medical management. 10/19/24 The patient was seen and examined today morning. His daughter is at the bedside. He is complaining on and off ulcer pain. Clinically, the ulcer looks like pyoderma gangrenosum. We will check hepatitis panel. Patient may have associated IBD. Infectious disease recommending general surgery and hem & onc. wound culture results pending. Arterial US showed atherosclerotic disease, abnormal monophasic arterial wave for seen in the left distal popliteal, left posterior tibial, anterior tibial and dorsalis pedal arteries with hyperemic flow. 10/20/24 patient was seen and evaluated. Patient underwent debridement of left leg ulcer. Aerobic culture showed 2+ Gram-negative rods, identification and sensitivity pending. Arterial ultrasound showed atherosclerotic disease. Abnormal monophasic waveforms in left distal popliteal, left posterior tibial, anterior tibial and dorsalis pedal arteries with hyperemic flow. We will consult Cardiology for peripheral arterial disease. Hepatitis B and C are nonreactive. Dr. Enciso started him on dexamethasone. Continue Plavix. 10/21/24: Patient was seen and evaluated this morning at bedside. Patient is POD #1 S/P debridement of left leg ulcer. Patient continues on Zosyn and Vancomycin, as per infectious disease recommendations. Pending cardiology recommendations for PAD. Patient continues on Dexamethasone per hematology recommendations. Patient denies bowel movement for 3 days, Miralax has been ordered. 10/22/2024 Patient is seen and examined at the bedside. He is postop day 2 s/p debridement of left leg ulcer. Vitals blood pressure 152/72. He complains of moderate pain in his left lower extremity. He did not have a bowel movement yet, lactulose has been ordered. Labs WBC increased from 11.3-15.2, glucose 210. aerobic cultures of the left leg ulcer resulted in E coli, Enterococcus faecalis and Proteus mirabilis. Pending cardiology consult. 10/23/24 patient was seen and evaluated in the morning. Cardiology Consult appreciated and recommended continue aspirin 81, [id number] and atorvastatin 40 mg. Patient just came back from CTA runoff and pending results. He is complaining of mild pain on his left calf. WBC trending down 15.2-12.4 today. His glucose level has been high and we will adjust the insulin regimen. Plan is to send him to [facility]. Case management consulted and we will wait for insurance approval. Continue wound VAC, IV Zosyn and vancomycin. 10/24/24 patient was seen and examined. Patient is complaining of mild left calf pain. Patient has also been having a lot of hiccups for the last 3 days. We will increase the dose of gabapentin to 200 t.i.d.. We will also obtain CT abdomen without contrast to rule out any abscess or perforation. WBC trending down from 12.4-10.6 today, hemoglobin 13.7. CMP unremarkable. CTA runoff showed preserved flow bilaterally. Management will take off the wound VAC today and evaluate and may put back the wound VAC if needed. Plan is for Solara placement. 10/25/24 the patient was seen and examined. Patient is complaining of mild left calf pain, denies any other complaints. His hiccups have resolved now. CT abdomen without contrast showed no acute findings. WBC went up from 10.6-11.3. Blood glucose 174 today. Vitals are stable. Patient is being referred to [facility] for IV antibiotics. Wound management recommended wound VAC dressing every alternative day. Patient is a day 2 telemetry today. Pending insurance approval for Solara placement. REVIEW OF SYSTEMS CONSTITUTIONAL: Denies fevers, chills, or night sweats. No unintentional weight loss reported. NEUROLOGICAL: Denies headache, amaurosis fugax, motor weakness, sensory deficit, vertigo/spinning sensation, gait abnormalities, or tremors. ENT: No hearing loss, otalgia, otorrhea, rhinitis, rhinorrhea, hoarseness, or sore throat. CARDIOVASCULAR: Denies any exertional angina, dyspnea on exertion, orthopnea, paroxysmal nocturnal dyspnea, palpitations, life-threatening arrhythmias, claudication. PULMONARY: Denies any shortness of breath, cough, phlegm/sputum, hemoptysis, pleuritic chest pain. SLEEP: Denies morning headaches, daytime somnolence or napping. Denies difficulty falling asleep, staying asleep, waking from sleep. Denies knowledge of snoring. GASTROINTESTINAL: Denies any type of dysphagia to either liquids or solids. Denies nausea, vomiting, pyrosis, early satiety, abdominal pain, diarrhea, constipation, or changes in stool consistency or caliber. Denies coffee-ground emesis, hematemesis, hematochezia, or melanotic stools. GENITOURINARY: Denies frequency, urgency, nocturia, hematuria or incontinence (Storage/Irritative symptoms.) Low urinary stream, straining to void, urinary intermittency or hesitancy, splitting of the voiding stream, terminal dribbling. ENDOCRINOLOGIC: Denies polyuria, polydipsia, polyphagia or heat/cold intolerances. HEMATOLOGIC: Denies thrombophilia/previous clots, or coagulopathy/bleeding disorders. ONCOLOGIC: Denies personal history of malignancy. DERMATOLOGIC: Denies rashes or pruritus. PSYCHIATRIC: Denies any suicidal or homicidal ideation. Denies hallucinations. PHYSICAL EXAM GENERAL APPEARANCE: The patient is awake, alert, and oriented, in no acute cardiopulmonary distress. NEUROLOGICAL: Cranial nerves II-XII grossly intact. Motor is 5/5 in bilateral upper and lower extremities proximal to distal. No sensory deficits. HEENT: Face is symmetric. Pupils are equal and reactive. Extraocular movements are intact. NECK: Supple. No JVD. No thyromegaly. No submental, submandibular, pre- /postauricular, occipital or supraclavicular lymphadenopathy. CHEST: Normal chest expansion. No Telemetry. LUNGS: Absence of any rales, rhonchi or any wheezing. CARDIOVASCULAR: Regular. S1 and S2 normal. No appreciable rubs, murmurs or gallops. ABDOMEN: Soft, nontender, and nondistended. There is no rebound, voluntary guarding, or rigidity. : Deferred. No Bonilla. EXTREMITIES: Non-edematous and not cyanotic. No clubbing. Good capillary refill. Wound VAC on left calf SKIN: Non healing wound ulcer to left leg. Vital Signs (last 8hr) Date Time Temp Pulse Resp B/P (MAP) Pulse Ox O2 Delivery O2 Flow Rate FiO2 10/25/24 08:16 99 Room Air* 0 21 10/25/24 07:49 97.3 60 19 153/76 99 Room Air 10/25/24 04:40 97.9 68 19 126/73 95 Room Air LABS: Laboratory: Test 10/25/24 05:14 10/25/24 04:30 10/24/24 16:39 Range/Units Whole Blood Glucose 174 H 70-110 MG/DL White Blood Count 11.3 H 4.8-10.8 K/uL Red Blood Count 4.29 L 4.50-6.20 MIL/uL Hemoglobin 13.4 L 14.0-18.0 g/dL Hematocrit 39.0 L 42-54 % Mean Corpuscular Volume 90.9 79-99 fL Mean Corpuscular Hemoglobin 31.2 27.0-33.0 pg Mean Corpuscular Hemoglobin Concent 34.4 32.0-36.0 g/dL Red Cell Distribution Width 12.6 11.0-15.5 % Platelet Count 340 130-400 K/uL Mean Platelet Volume 10.6 H 7.5-10.5 fL Immature Granulocyte % (Auto) 0.5 0-1 % Neutrophils (%) (Auto) 78.9 H 40.0-77.0 % Lymphocytes (%) (Auto) 14.5 L 21.0-51.0 % Monocytes (%) (Auto) 6.0 3.0-13.0 % Eosinophils (%) (Auto) 0.0 0.0-8.0 % Basophils (%) (Auto) 0.1 0.0-5.0 % Neutrophils # (Auto) 9.0 H 1.8-7.7 K/uL Lymphocytes # (Auto) 1.6 1.0-4.8 K/uL Monocytes # (Auto) 0.7 0.1-1.0 K/uL Eosinophils # (Auto) 0.00 0.00-0.70 K/uL Basophils # (Auto) 0.01 0.00-0.20 K/uL Absolute Immature Granulocyte (auto 0.06 0-1 K/uL Nucleated Red Blood Cells 0.0 0.0-0.19 % Sodium Level 138 136-145 mmol/L Potassium Level 3.8 3.5-5.1 mmol/L Chloride Level 105 101-111 mmol/L Carbon Dioxide Level 26 21-32 mmol/L Blood Urea Nitrogen 25 H 7-18 mg/dL Creatinine 0.7 0.5-1.3 mg/dL Glomerular Filtration Rate Calc 97 >90 mL/min Random Glucose 188 H 70-105 mg/dL Total Calcium 8.4 L 8.5-10.1 mg/dL Magnesium Level 2.20 1.80-2.40 mg/dL Bedside Glucose Comment Notified Nurse Current Medications Medications (Trade) Dose Ordered Sig/Dorinda Route PRN Reason Start Time Stop Time Status Last Admin Dose Admin Acetaminophen (TYLenol 325MG TAB) 650 mg Q4H PRN PO MILD PAIN (1-3) 10/18/24 20:00 11/17/24 19:59 Acetaminophen (TYLenol 325MG TAB) 650 mg Q6H PRN PO TEMPERATURE GREATER THAN 101.5 10/18/24 20:00 11/17/24 19:59 Acetaminophen/ Codeine Phosphate (TYLenol-coDEINE TAB) 2 tab Q6H PRN PO SEVERE PAIN (7-10) 10/19/24 09:30 10/23/24 06:36 DC 10/19/24 16:45 2 TAB Aspirin (Aspirin 81mg Ec Tab) 81 mg DAILY PO 10/23/24 09:00 11/22/24 08:59 10/25/24 08:03 81 MG Atorvastatin Calcium (LIPItor 10MG) 5 mg HS PO 10/19/24 21:00 10/22/24 15:33 DC 10/21/24 21:49 5 MG Atorvastatin Calcium (LIPItor 40MG) 40 mg HS PO 10/22/24 21:00 11/21/24 20:59 10/24/24 21:35 40 MG Clopidogrel Bisulfate (plaVIX 75MG) 75 mg DAILY PO 10/20/24 09:00 11/19/24 08:59 10/25/24 08:03 75 MG Dexamethasone Sodium Phosphate (dexaMETHasone 4MG/ML 1ML VIAL) 20 mg Q24H IV 10/20/24 13:30 10/20/24 13:23 DC Dexamethasone Sodium Phosphate 20 mg/Sodium Chloride 50 ml @ 100 mls/hr Q24H IV 10/20/24 14:00 10/23/24 14:56 DC 10/22/24 15:05 100 MLS/HR Dexamethasone Sodium Phosphate 20 mg/Sodium Chloride 50 ml @ 100 mls/hr Q24H IV 10/23/24 15:00 11/22/24 14:59 10/24/24 16:02 100 MLS/HR Dextrose (D50w) 50 ml AD PRN IV HYPOGLYCEMIA PROTOCOL 10/18/24 20:00 11/17/24 19:59 Enoxaparin Sodium (Lovenox) 30 mg DAILY SQ 10/19/24 16:00 11/18/24 15:59 10/25/24 08:04 30 MG Famotidine (Pepcid 20mg Tab) 20 mg BID PO 10/18/24 21:00 11/17/24 20:59 10/25/24 08:03 20 MG Gabapentin (NEURontin 100 mg CAP) 100 mg TID PO 10/19/24 21:00 10/24/24 11:22 DC 10/24/24 09:04 100 MG Gabapentin (NEURontin 100 mg CAP) 200 mg TID PO 10/24/24 14:00 11/23/24 13:59 10/25/24 08:11 200 MG Glucagon (Glucagon 1mg Kit) 1 mg AD PRN IM HYPOGLYCEMIA PROTOCOL 10/18/24 20:00 11/17/24 19:59 Hydrochlorothiazide (hydroCHLOROthiazide 25MG) 12.5 mg DAILY PO 10/20/24 09:00 11/19/24 08:59 10/25/24 08:03 12.5 MG Hydromorphone HCl (DiLAUDid 1MG INJ) 1 mg Q3H3 PRN IVP SEVERE PAIN (7-10) 10/20/24 11:30 10/25/24 11:29 10/24/24 13:51 1 MG Insulin Glargine (LANtus 100 UNITS/ML 10 ML VIAL) 20 units HS SQ 10/19/24 21:00 10/23/24 13:56 DC 10/22/24 20:27 20 UNITS Insulin Glargine (LANtus 100 UNITS/ML 10 ML VIAL) 30 units HS SQ 10/23/24 21:00 11/22/24 20:59 10/24/24 22:02 30 UNITS Insulin Human Lispro (HumaLOG LISpro 100 UNIT/ML 3ML) 3 unit TIDAC SQ 10/23/24 17:00 10/24/24 10:39 DC 10/24/24 07:06 3 UNIT Insulin Human Lispro (HumaLOG LISpro 100 UNIT/ML 3ML) 4 unit TIDAC SQ 10/24/24 11:30 11/23/24 11:29 10/25/24 08:01 4 UNIT Insulin Human Regular (humuLIN R 100 UNIT/ML 3ML) INSULIN SLIDING SCAL... ACHS SQ 10/18/24 21:00 11/17/24 20:59 10/24/24 22:01 7 UNIT Leptospermum Honey (Seleroney) 1 appl DAILY TP 10/20/24 09:00 11/19/24 08:59 10/20/24 07:40 1 APPL Losartan Potassium (CozAAR 25MG TAB) 25 mg DAILY PO 10/20/24 09:00 11/19/24 08:59 10/25/24 08:03 25 MG Magnesium Sulfate 50 ml @ 0 mls/hr PROTOCOL PRN IV OTHER [SEE ORDER COMMENTS] 10/18/24 20:00 11/17/24 19:59 Morphine Sulfate (morPHINE 2MG SYG) 2 mg ONCE STAT IVP 10/18/24 19:33 10/18/24 19:38 DC 10/18/24 20:04 2 MG Morphine Sulfate (morPHINE 2MG SYG) 2 mg Q4H PRN IV MODERATE PAIN (4-6) 10/18/24 20:00 10/23/24 06:36 DC 10/22/24 04:13 2 MG Multivitamins Therapeutic (Multivitamin Tablet) 1 tab DAILY PO 10/20/24 09:00 11/19/24 08:59 10/25/24 08:03 1 TAB Ondansetron HCl (zoFRAN 4MG INJ) 4 mg ONCE STAT IVP 10/18/24 19:33 10/18/24 19:38 DC 10/18/24 20:04 4 MG Ondansetron HCl (zoFRAN 4MG INJ) 4 mg Q6H PRN IV NAUSEA/VOMITING 10/18/24 20:00 11/17/24 19:59 10/20/24 02:40 4 MG Oxycodone/ Acetaminophen (perCOCET) 1 tab Q4H PRN PO SEVERE PAIN (7-10) 10/20/24 11:30 10/27/24 11:29 10/25/24 03:39 1 TAB Piperacillin Sod/ Tazobactam Sod 50 ml @ 12.5 mls/hr Q8H IV 10/19/24 04:00 10/29/24 03:59 10/25/24 04:08 12.5 MLS/HR Piperacillin Sod/ Tazobactam Sod (Zosyn 3.375gm+NS 50ml) 3.375 gm ONCE STAT IV 10/18/24 19:31 10/18/24 19:38 DC 10/18/24 20:04 3.375 GM Potassium Chloride 100 ml @ 100 mls/hr AD PRN IV POTASSIUM PROTOCOL 10/18/24 20:00 11/17/24 19:59 Potassium Chloride (K-Dur/Klor-Con 20meq) 20 meq AD PRN PO POTASSIUM PROTOCOL 10/18/24 20:00 11/17/24 19:59 10/21/24 14:53 20 MEQ Potassium Chloride (KCl 10% Elixir 20meq/15ml) 20 meq AD PRN PO POTASSIUM PROTOCOL 10/18/24 20:00 11/17/24 19:59 Vancomycin HCl 250 ml @ 125 mls/hr ONCE IV 10/18/24 20:00 10/18/24 20:20 DC Vancomycin HCl 250 ml @ 125 mls/hr Q12H IV 10/21/24 21:00 10/31/24 20:59 10/25/24 08:02 125 MLS/HR Vancomycin HCl (Vancomycin 750mg) 750 mg Q12H IVPB 10/19/24 09:00 10/21/24 21:00 DC 10/21/24 08:44 750 MG Vancomycin HCl (Vancomycin Protocol) 1 each AD IV 10/18/24 20:30 11/01/24 20:29 DIAGNOSTICS / RADIOLOGY: [place] [id number] [place] [id number] IMAGING REPORT Signed PATIENT: GENIE GONZALES MR#: [id number] : 1950 SEX: M AGE: 74 LOCATION: 3AH ORDER 1120 STATUS: ADM IN REPORT#: [id number] SERVICE 112 REASON: Hiccups for last 3 days ORDERING PHYSICIAN: PEDRITO MANE MD PROCEDURE: ABDO WO - CT ABDOMEN W/O CONTRAST CT ABDOMEN W/O CONTRAST HISTORY: Hiccups COMPARISON: 10/24/2019 TECHNIQUE: Multiple sequential axial images of the abdomen were obtained from the dome of the diaphragm through iliac crests. Patient was not given contrast through intravenous route. Oral contrast was not given. FINDINGS: No pleural effusion is seen bilaterally. There is no evidence of parenchymal disease or pulmonary nodule of the visualized lower lungs. Degenerative changes are seen of the thoracolumbar spine. The liver measures 17 cm. Gallbladder is distended. The liver, spleen, adrenal glands and pancreas are unremarkable. There is no evidence of hydronephrosis bilaterally. No evidence of renal stone is seen. Fecal material is seen in the colon. There are normal-sized retroperitoneal and mesenteric lymph nodes. No ascites is seen. Atherosclerotic changes are present. IMPRESSION: 1. No acute finding. CT was performed with one or more following dose reduction techniques: automated exposure control, adjustment of the mA and kv according to patient's size, or use of a iterative reconstruction technique. DICTATED BY: PRAKASH MACK MD DATE: 10/25/2443 ELECTRONICALLY SIGNED BY: PRAKASH MACK MD DATE: 10/25/24 0949 [facility] [address] [place] [id number] IMAGING REPORT Signed PATIENT: GENIE GONZALES MR#: [id number] : 1950 SEX: M AGE: 74 LOCATION: 3AH ORDER 1123 STATUS: ADM IN REPORT#: [id number] SERVICE 1121 REASON: Hiccups for last 3 days ORDERING PHYSICIAN: PEDRITO MANE MD PROCEDURE: ABDO WO - CT ABDOMEN W/O CONTRAST CT ABDOMEN W/O CONTRAST HISTORY: Hiccups COMPARISON: 10/24/2019 TECHNIQUE: Multiple sequential axial images of the abdomen were obtained from the dome of the diaphragm through iliac crests. Patient was not given contrast through intravenous route. Oral contrast was not given. FINDINGS: No pleural effusion is seen bilaterally. There is no evidence of parenchymal disease or pulmonary nodule of the visualized lower lungs. Degenerative changes are seen of the thoracolumbar spine. The liver measures 17 cm. Gallbladder is distended. The liver, spleen, adrenal glands and pancreas are unremarkable. There is no evidence of hydronephrosis bilaterally. No evidence of renal stone is seen. Fecal material is seen in the colon. There are normal-sized retroperitoneal and mesenteric lymph nodes. No ascites is seen. Atherosclerotic changes are present. IMPRESSION: 1. No acute finding. CT was performed with one or more following dose reduction techniques: automated exposure control, adjustment of the mA and kv according to patient's size, or use of a iterative reconstruction technique. DICTATED BY: PRAKASH MACK MD DATE: 10/25/2443 ELECTRONICALLY SIGNED BY: PRAKASH MACK MD DATE: 10/25/24 0949 [place] [id number] IMAGING REPORT Signed PATIENT: GENIE GONZALES MR#: [id number] : 1950 SEX: M AGE: 74 LOCATION: EDH ORDER 1611 STATUS: REG ER REPORT#: [id number] SERVICE 1609 REASON: wound ORDERING PHYSICIAN: BONITA FIGUEROA NP PROCEDURE: TIBFIB LT - TIBIA/FIBULA 2VWS LT TIBIA/FIBULA 2VWS LT HISTORY: Wound COMPARISON: None TECHNIQUE: 2 images of the left tibia and fibula were obtained. FINDINGS: There is no acute displaced fracture or dislocation. There is soft tissue swelling. Vascular calcifications are seen. Small calcaneal spur is seen. Evaluation for osteomyelitis is limited with radiographs. Degenerative changes are seen. IMPRESSION: 1. Findings as described above. DICTATED BY: PRAKASH MACK MD DATE: 10/18/24 1637 ELECTRONICALLY SIGNED BY: PRAKASH MACK MD DATE: 10/18/24 1640 ASSESSMENT: Chronic left leg ulcer with suspected pyoderma gangrenosum, s/p debridement, skin biopsy and wound VAC placement. Left lower extremity cellulitis. Diabetic leg ulcer with 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 Continue on heart healthy and consistent carb diet Suspected Pyoderma Gangrenosum Clinically, the ulcer looks like pyoderma gangrenosum. Hepatitis panel nonreactive on admission. Continue IV Vancomycin and Zosyn as per ID consult recommendation Patient had undergone debridement of left lower leg on 10/20/24 by general surgery consult. The aerobic culture is positive for Enterococcus faecalis, Enterobacter or manage she, E coli and Proteus mirabilis. Continue IV dexamethasone 20 mg 50 ml @ 100 ml/hour as per Hematology consult recommendation. Wound management recommended wound VAC cleaning and wound dressing on every alternate days. 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 Continue IV vancomycin and IV zosyn. Aerobic wound culture showed an E coli, Enterococcus faecalis, Proteus mirabilis. History of PVD with PCI Continue Clopidogrel. Arterial ultrasound showed atherosclerotic disease. Abnormal monophasic waveforms in left distal popliteal, left posterior tibial, anterior tibial and dorsalis pedal arteries with hyperemic flow. Consultation with Cardiology appreciated and recommended aspirin 81, [id number] and atorvastatin 40 mg. CTA runoff showed preserved flow bilaterally. Uncontrolled diabetes POA Continue glucose checks AC & HS. Follow insulin sliding scale with hypoglycemia protocol HbA1c is 10.3% on admission. Glucose level in the morning 174. Continue Lantus to 30 units HS and 4 units of insulin lispro t.i.d. pre meals. Continue gabapentin to 200 mg t.i.d. Hypertension POA Continue home medication Losartan and hydrochlorothiazide. Hyperlipidemia POA Continue [address] abdomen unremarkable Pending on insurance approval for Solara placement. Lovenox 30 mg SQ daily for DVT prophylaxis Famotidine 20 mg p.o. bid for GI prophylaxis PRN medication for fever,pain,cough ,nausea and vomiting. ATTESTATION BY PHYSICIAN I have seen and examined the patient. I reviewed the documentation, medical decision making, and treatment plan as noted by the resident provider above. I agree with the findings and plan of care. Rohit Rob MD, KRUPALI P MD October 25, 2024 11:19
--- NOTE | 2024-10-25 16:23 | PN ---
INFECTIOUS DISEASE PROGRESS NOTE Date of Service: October 25, 2024 SUBJECTIVE: This is a 74-year-old male patient who was seen and examined at bedside in room 303. Patient is awake, alert and oriented x3. Patient is s/p debridement and skin biopsy of left leg wound and wound VAC placement on 10/20/2024. Patient is better controlled. No fever, temperature is 97.7. Patient was placed on telemetry monitoring yesterday and pending insurance approval to [facility]. Continues on vancomycin and Zosyn IV. PHYSICAL EXAM EYES: Anicteric. Pupils equal and reactive. HENT: No oral thrush seen, moist Oral mucosa NECK: Supple, no JVD or thyromegaly. LUNGS: Good air entry. No rales, no rhonchi. CARDIOVASCULAR: S1, S2 regular. No murmur heard. ABDOMEN: Soft, non tender, bowel sounds present, no organomegaly. CENTRAL NERVOUS SYSTEM: Awake, alert, oriented x 3. SKIN: No rashes, no swelling. LYMPHATICS: No peripheral lymphadenopathy. MUSCULOSKELETAL: No joint swelling, erythema or tenderness. EXTREMITIES: No cyanosis or clubbing. Chronic left leg ulcer with possible pyoderma gangrenosum BACK: No deformity, no pressure ulcer. GENITOURINARY: No dysuria or hematuria.. Vital Sign (Last 12 Hours) 10/25/24 10/25/24 10/25/24 10/25/24 04:40 07:49 08:16 12:00 Temp 97.9 97.3 97.7 Pulse 68 60 75 Resp 19 19 19 B/P (MAP) 126/73 153/76 139/71 Pulse Ox 95 99 99 97 O2 Delivery Room Air Room Air Room Air* Room Air O2 Flow Rate 0 FiO2 21 21 Intake & Output (last 24hrs) 10/24/24 10/24/24 10/25/24 15:00 23:00 07:00 Intake Total 1500 ml Output Total 900 ml Balance 1500 ml -900 ml LABS: Laboratory: Test 10/25/24 11:54 10/25/24 04:30 Range/Units Whole Blood Glucose 239 H 70-110 MG/DL Bedside Glucose Comment Notified Nurse White Blood Count 11.3 H 4.8-10.8 K/uL Red Blood Count 4.29 L 4.50-6.20 MIL/uL Hemoglobin 13.4 L 14.0-18.0 g/dL Hematocrit 39.0 L 42-54 % Mean Corpuscular Volume 90.9 79-99 fL Mean Corpuscular Hemoglobin 31.2 27.0-33.0 pg Mean Corpuscular Hemoglobin Concent 34.4 32.0-36.0 g/dL Red Cell Distribution Width 12.6 11.0-15.5 % Platelet Count 340 130-400 K/uL Mean Platelet Volume 10.6 H 7.5-10.5 fL Immature Granulocyte % (Auto) 0.5 0-1 % Neutrophils (%) (Auto) 78.9 H 40.0-77.0 % Lymphocytes (%) (Auto) 14.5 L 21.0-51.0 % Monocytes (%) (Auto) 6.0 3.0-13.0 % Eosinophils (%) (Auto) 0.0 0.0-8.0 % Basophils (%) (Auto) 0.1 0.0-5.0 % Neutrophils # (Auto) 9.0 H 1.8-7.7 K/uL Lymphocytes # (Auto) 1.6 1.0-4.8 K/uL Monocytes # (Auto) 0.7 0.1-1.0 K/uL Eosinophils # (Auto) 0.00 0.00-0.70 K/uL Basophils # (Auto) 0.01 0.00-0.20 K/uL Absolute Immature Granulocyte (auto 0.06 0-1 K/uL Nucleated Red Blood Cells 0.0 0.0-0.19 % Sodium Level 138 136-145 mmol/L Potassium Level 3.8 3.5-5.1 mmol/L Chloride Level 105 101-111 mmol/L Carbon Dioxide Level 26 21-32 mmol/L Blood Urea Nitrogen 25 H 7-18 mg/dL Creatinine 0.7 0.5-1.3 mg/dL Glomerular Filtration Rate Calc 97 >90 mL/min Random Glucose 188 H 70-105 mg/dL Total Calcium 8.4 L 8.5-10.1 mg/dL Magnesium Level 2.20 1.80-2.40 mg/dL ASSESSMENT: Chronic left leg ulcer with possible pyoderma gangrenosum, s/p debridement, skin biopsy and wound VAC placement on 10/20/2024. Left leg with polymicrobial infection. Left lower extremity cellulitis. Leukocytosis, possibly due to the IV steroids.. Diabetes mellitus. Peripheral vascular disease. PLAN: Continue Zosyn. Continue vancomycin per pharmacy protocol. Continue IV steroids. Continue antidiabetics. Continue wound care as recommended by General surgery, currently on wound VAC therapy. Continue pain management. Continue GI prophylaxis. Pending insurance approval to [facility]. This case was reviewed and discussed with my supervising physician and the above assessment and plan was formulated and agreed upon. ATTESTATION BY PHYSICIAN I have seen and examined the patient. I reviewed the documentation, medical decision making, and treatment plan as noted by the mid-level provider above. I agree with the findings and plan of care. JUNIE KNOWLES MD, [facility] October 25, 2024 16:23
[2024-10-25] MEDS: acetaMINOPHEN 325 MG TAB PO PRN (19:38)
[2024-10-26] VITALS (7 sets, daily range): BP systolic 117–149; BP diastolic 42–79; PULSE 55–75; RESP 16–20; TEMP 97.3–98.7; O2SAT 99–100
[2024-10-26 04:17] LABS: BASOPHILS # (AUTO) 0.01 K/uL (0.00-0.20); BASOPHILS % (AUTO) 0.1 % (0.0-5.0); HEMATOCRIT 41.2 % (42-54); IMMATURE GRANULOCYTE ABSOLUTE 0.07 K/uL (0-1); LYMPHOCYTES # (AUTO) 1.7 K/uL (1.0-4.8); MEAN CORPUSCULAR HEMOGLOBIN 31.1 pg (27.0-33.0); MEAN CORPUSCULAR HGB CONC 34.2 g/dL (32.0-36.0); MEAN CORPUSCULAR VOLUME 90.7 fL (79-99); MONOCYTES # (AUTO) 0.7 K/uL (0.1-1.0); MONOCYTES % (AUTO) 5.9 % (3.0-13.0); NEUTROPHILS # (AUTO) 8.7 K/uL (1.8-7.7); NEUTROPHILS % (AUTO) 78.4 % (40.0-77.0); PLATELET COUNT (AUTO) 319 K/uL (130-400); RED BLOOD CELL COUNT(AUTO) 4.54 MIL/uL (4.50-6.20); RED CELL DISTRIBUTION WIDTH 12.6 % (11.0-15.5); WHITE BLOOD COUNT (AUTO) 11.2 K/uL (4.8-10.8)
[2024-10-26 04:41] LABS: CREATININE 0.7 mg/dL (0.5-1.3); MAGNESIUM 2.2 mg/dL (1.80-2.40); POTASSIUM 3.8 mmol/L (3.5-5.1)
[2024-10-26] MEDS: oxyCODONE/aceTAMIN 5/325MG TAB PO PRN (08:30)
[2024-10-26 12:41] LABS: PROTHROMBIN TIME 10.6 SEC (9.6-11.6)
--- NOTE | 2024-10-26 13:57 | PN ---
[facility] PROGRESS NOTE Date of Service: October 26, 2024 Time of Service: 13:48 SUBJECTIVE: This is a 74 year old male with past medical history of PVD with PCI ,diabetes,hypertension ,GERD and hyperlipidemia who presents to the ED for complaints of severe pain to left leg ulcer and swelling and he noticed bloody drainage this afternoon so he decided to come to the ED for further evaluati on.Patient reports that this wound started since November 2023 and is doing medihoney dressing everyday but patient has not taken antibiotic.Patient states he had a stent placed by on both lower legs on 08/14/2024. Seen and examined patient in the Ed awake,alert and coherent appears uncomfortable complaints of left leg pain 8/10 pain level.Patient denies,fever,chills,nausea,vomiting,chest pain,palpitation and shortness of breath. Vital signs temperature 98.2 heart rate 72 blood pressure 161/75 saturation 98% on room air. Labs: Hemoglobin 13, hematocrit 41, platelet count 284. Glucose 281 calcitonin less than 0 point 0 five. X-ray of the left leg result revealed there is no acute displaced fracture or dislocation. There is soft tissue swelling. Vascular calcifications are seen. Small calcaneal spur is seen. Evaluation for osteomyelitis is limited with radiographs. Degenerative changes are seen. While in the ER patient received Zosyn IV, morphine 2 mg IV and Zofran 4 mg IV. We will admit patient for further medical management. 10/19/24 The patient was seen and examined today morning. His daughter is at the bedside. He is complaining on and off ulcer pain. Clinically, the ulcer looks like pyoderma gangrenosum. We will check hepatitis panel. Patient may have associated IBD. Infectious disease recommending general surgery and hem & onc. wound culture results pending. Arterial US showed atherosclerotic disease, abnormal monophasic arterial wave for seen in the left distal popliteal, left posterior tibial, anterior tibial and dorsalis pedal arteries with hyperemic flow. 10/20/24 patient was seen and evaluated. Patient underwent debridement of left leg ulcer. Aerobic culture showed 2+ Gram-negative rods, identification and sensitivity pending. Arterial ultrasound showed atherosclerotic disease. Abnormal monophasic waveforms in left distal popliteal, left posterior tibial, anterior tibial and dorsalis pedal arteries with hyperemic flow. We will consult Cardiology for peripheral arterial disease. Hepatitis B and C are nonreactive. Dr. Enciso started him on dexamethasone. Continue Plavix. 10/21/24: Patient was seen and evaluated this morning at bedside. Patient is POD #1 S/P debridement of left leg ulcer. Patient continues on Zosyn and Vancomycin, as per infectious disease recommendations. Pending cardiology recommendations for PAD. Patient continues on Dexamethasone per hematology recommendations. Patient denies bowel movement for 3 days, Miralax has been ordered. 10/22/2024 Patient is seen and examined at the bedside. He is postop day 2 s/p debridement of left leg ulcer. Vitals blood pressure 152/72. He complains of moderate pain in his left lower extremity. He did not have a bowel movement yet, lactulose has been ordered. Labs WBC increased from 11.3-15.2, glucose 210. aerobic cultures of the left leg ulcer resulted in E coli, Enterococcus faecalis and Proteus mirabilis. Pending cardiology consult. 10/23/24 patient was seen and evaluated in the morning. Cardiology Consult appreciated and recommended continue aspirin 81, [id number] and atorvastatin 40 mg. Patient just came back from CTA runoff and pending results. He is complaining of mild pain on his left calf. WBC trending down 15.2-12.4 today. His glucose level has been high and we will adjust the insulin regimen. Plan is to send him to [facility]. Case management consulted and we will wait for insurance approval. Continue wound VAC, IV Zosyn and vancomycin. 10/24/24 patient was seen and examined. Patient is complaining of mild left calf pain. Patient has also been having a lot of hiccups for the last 3 days. We will increase the dose of gabapentin to 200 t.i.d.. We will also obtain CT abdomen without contrast to rule out any abscess or perforation. WBC trending down from 12.4-10.6 today, hemoglobin 13.7. CMP unremarkable. CTA runoff showed preserved flow bilaterally. Management will take off the wound VAC today and evaluate and may put back the wound VAC if needed. Plan is for Solara placement. 10/25/24 the patient was seen and examined. Patient is complaining of mild left calf pain, denies any other complaints. His hiccups have resolved now. CT abdomen without contrast showed no acute findings. WBC went up from 10.6-11.3. Blood glucose 174 today. Vitals are stable. Patient is being referred to [facility] for [facility] antibiotics. Wound management recommended wound VAC dressing every alternative day. Patient is a day 2 telemetry today. Pending insurance approval for Solara placement. 10/26/24 the patient was seen and examined. Patient denies any complaints. No acute events overnight. Patient has a wound VAC in place. Wound management recommended wound VAC dressing TTS. His vitals are stable. WBC trending down to 11.2. CMP unremarkable. Glucose level this morning 166. Patient needs long-term antibiotics IV Zosyn and vancomycin. I will place an order for midline insertion. Pending insurance approval for Solara placement. REVIEW OF SYSTEMS CONSTITUTIONAL: Denies fevers, chills, or night sweats. No unintentional weight loss reported. NEUROLOGICAL: Denies headache, amaurosis fugax, motor weakness, sensory deficit, vertigo/spinning sensation, gait abnormalities, or tremors. ENT: No hearing loss, otalgia, otorrhea, rhinitis, rhinorrhea, hoarseness, or sore throat. CARDIOVASCULAR: Denies any exertional angina, dyspnea on exertion, orthopnea, paroxysmal nocturnal dyspnea, palpitations, life-threatening arrhythmias, claudication. PULMONARY: Denies any shortness of breath, cough, phlegm/sputum, hemoptysis, pleuritic chest pain. SLEEP: Denies morning headaches, daytime somnolence or napping. Denies difficulty falling asleep, staying asleep, waking from sleep. Denies knowledge of snoring. GASTROINTESTINAL: Denies any type of dysphagia to either liquids or solids. Denies nausea, vomiting, pyrosis, early satiety, abdominal pain, diarrhea, constipation, or changes in stool consistency or caliber. Denies coffee-ground emesis, hematemesis, hematochezia, or melanotic stools. GENITOURINARY: Denies frequency, urgency, nocturia, hematuria or incontinence (Storage/Irritative symptoms.) Low urinary stream, straining to void, urinary intermittency or hesitancy, splitting of the voiding stream, terminal dribbling. ENDOCRINOLOGIC: Denies polyuria, polydipsia, polyphagia or heat/cold intolerances. HEMATOLOGIC: Denies thrombophilia/previous clots, or coagulopathy/bleeding disorders. ONCOLOGIC: Denies personal history of malignancy. DERMATOLOGIC: Denies rashes or pruritus. PSYCHIATRIC: Denies any suicidal or homicidal ideation. Denies hallucinations. PHYSICAL EXAM GENERAL APPEARANCE: The patient is awake, alert, and oriented, in no acute cardiopulmonary distress. NEUROLOGICAL: Cranial nerves II-XII grossly intact. Motor is 5/5 in bilateral upper and lower extremities proximal to distal. No sensory deficits. HEENT: Face is symmetric. Pupils are equal and reactive. Extraocular movements are intact. NECK: Supple. No JVD. No thyromegaly. No submental, submandibular, pre- /postauricular, occipital or supraclavicular lymphadenopathy. CHEST: Normal chest expansion. No Telemetry. LUNGS: Absence of any rales, rhonchi or any wheezing. CARDIOVASCULAR: Regular. S1 and S2 normal. No appreciable rubs, murmurs or g allops. ABDOMEN: Soft, nontender, and nondistended. There is no rebound, voluntary gua rding, or rigidity. : Deferred. No Bonilla. EXTREMITIES: Non-edematous and not cyanotic. No clubbing. Good capillary refill. Wound VAC on left calf SKIN: Non healing wound ulcer to left leg. Vital Signs (last 8hr) Date Time Temp Pulse Resp B/P (MAP) Pulse Ox O2 Delivery O2 Flow Rate FiO2 10/26/24 12:00 98.8 75 20 132/67 99 Room Air 21 10/26/24 08:00 97.3 57 20 139/71 99 Room Air 21 LABS: Laboratory: Test 10/26/24 11:33 10/26/24 07:38 10/26/24 07:35 10/26/24 03:57 Range/Units Whole Blood Glucose 223 H 70-110 MG/DL Bedside Glucose Comment Notified Nurse Prothrombin Time 10.6 9.6-11.6 SEC Prothromb Time International Ratio 1.00 0.85-1.15 Vancomycin Level Trough 11.6 10.0-20.0 UG/ML White Blood Count 11.2 H 4.8-10.8 K/uL Red Blood Count 4.54 4.50-6.20 MIL/uL Hemoglobin 14.1 14.0-18.0 g/dL Hematocrit 41.2 L 42-54 % Mean Corpuscular Volume 90.7 79-99 fL Mean Corpuscular Hemoglobin 31.1 27.0-33.0 pg Mean Corpuscular Hemoglobin Concent 34.2 32.0-36.0 g/dL Red Cell Distribution Width 12.6 11.0-15.5 % Platelet Count 319 130-400 K/uL Mean Platelet Volume 10.4 7.5-10.5 fL Immature Granulocyte % (Auto) 0.6 0-1 % Neutrophils (%) (Auto) 78.4 H 40.0-77.0 % Lymphocytes (%) (Auto) 15.0 L 21.0-51.0 % Monocytes (%) (Auto) 5.9 3.0-13.0 % Eosinophils (%) (Auto) 0.0 0.0-8.0 % Basophils (%) (Auto) 0.1 0.0-5.0 % Neutrophils # (Auto) 8.7 H 1.8-7.7 K/uL Lymphocytes # (Auto) 1.7 1.0-4.8 K/uL Monocytes # (Auto) 0.7 0.1-1.0 K/uL Eosinophils # (Auto) 0.00 0.00-0.70 K/uL Basophils # (Auto) 0.01 0.00-0.20 K/uL Absolute Immature Granulocyte (auto 0.07 0-1 K/uL Nucleated Red Blood Cells 0.0 0.0-0.19 % Sodium Level 136 136-145 mmol/L Potassium Level 3.8 3.5-5.1 mmol/L Chloride Level 105 101-111 mmol/L Carbon Dioxide Level 24 21-32 mmol/L Blood Urea Nitrogen 19 H 7-18 mg/dL Creatinine 0.7 0.5-1.3 mg/dL Glomerular Filtration Rate Calc 97 >90 mL/min Random Glucose 194 H 70-105 mg/dL Total Calcium 8.3 L 8.5-10.1 mg/dL Magnesium Level 2.20 1.80-2.40 mg/dL Current Medications Medications (Trade) Dose Ordered Sig/Dorinda Route PRN Reason Start Time Stop Time Status Last Admin Dose Admin Acetaminophen (TYLenol 325MG TAB) 650 mg Q4H PRN PO MILD PAIN (1-3) 10/18/24 20:00 11/17/24 19:59 10/26/24 04:20 650 MG Acetaminophen (TYLenol 325MG TAB) 650 mg Q6H PRN PO TEMPERATURE GREATER THAN 101.5 10/18/24 20:00 11/17/24 19:59 Acetaminophen/ Codeine Phosphate (TYLenol-coDEINE TAB) 2 tab Q6H PRN PO SEVERE PAIN (7-10) 10/19/24 09:30 10/23/24 06:36 DC 10/19/24 16:45 2 TAB Aspirin (Aspirin 81mg Ec Tab) 81 mg DAILY PO 10/23/24 09:00 11/22/24 08:59 10/26/24 08:30 81 MG Atorvastatin Calcium (LIPItor 10MG) 5 mg HS PO 10/19/24 21:00 10/22/24 15:33 DC 10/21/24 21:49 5 MG Atorvastatin Calcium (LIPItor 40MG) 40 mg HS PO 10/22/24 21:00 11/21/24 20:59 10/25/24 19:38 40 MG Clopidogrel Bisulfate (plaVIX 75MG) 75 mg DAILY PO 10/20/24 09:00 11/19/24 08:59 10/26/24 08:29 75 MG Dexamethasone Sodium Phosphate (dexaMETHasone 4MG/ML 1ML VIAL) 20 mg Q24H IV 10/20/24 13:30 10/20/24 13:23 DC Dexamethasone Sodium Phosphate 20 mg/Sodium Chloride 50 ml @ 100 mls/hr Q24H IV 10/20/24 14:00 10/23/24 14:56 DC 10/22/24 15:05 100 MLS/HR Dexamethasone Sodium Phosphate 20 mg/Sodium Chloride 50 ml @ 100 mls/hr Q24H IV 10/23/24 15:00 11/22/24 14:59 10/25/24 14:30 100 MLS/HR Dextrose (D50w) 50 ml AD PRN IV HYPOGLYCEMIA PROTOCOL 10/18/24 20:00 11/17/24 19:59 Enoxaparin Sodium (Lovenox) 30 mg DAILY SQ 10/19/24 16:00 11/18/24 15:59 10/26/24 08:32 30 MG Famotidine (Pepcid 20mg Tab) 20 mg BID PO 10/18/24 21:00 11/17/24 20:59 10/26/24 08:29 20 MG Gabapentin (NEURontin 100 mg CAP) 100 mg TID PO 10/19/24 21:00 10/24/24 11:22 DC 10/24/24 09:04 100 MG Gabapentin (NEURontin 100 mg CAP) 200 mg TID PO 10/24/24 14:00 11/23/24 13:59 10/26/24 08:30 200 MG Glucagon (Glucagon 1mg Kit) 1 mg AD PRN IM HYPOGLYCEMIA PROTOCOL 10/18/24 20:00 11/17/24 19:59 Hydrochlorothiazide (hydroCHLOROthiazide 25MG) 12.5 mg DAILY PO 10/20/24 09:00 11/19/24 08:59 10/26/24 08:29 12.5 MG Hydromorphone HCl (DiLAUDid 1MG INJ) 1 mg Q3H3 PRN IVP SEVERE PAIN (7-10) 10/20/24 11:30 10/25/24 11:29 DC 10/24/24 13:51 1 MG Hydromorphone HCl (DiLAUDid 1MG INJ) 1 mg Q4H PRN IVP SEVERE PAIN (7-10) IF NPO 10/26/24 08:30 10/31/24 08:29 Insulin Glargine (LANtus 100 UNITS/ML 10 ML VIAL) 20 units HS SQ 10/19/24 21:00 10/23/24 13:56 DC 10/22/24 20:27 20 UNITS Insulin Glargine (LANtus 100 UNITS/ML 10 ML VIAL) 30 units HS SQ 10/23/24 21:00 11/22/24 20:59 10/25/24 21:27 30 UNITS Insulin Human Lispro (HumaLOG LISpro 100 UNIT/ML 3ML) 3 unit TIDAC SQ 10/23/24 17:00 10/24/24 10:39 DC 10/24/24 07:06 3 UNIT Insulin Human Lispro (HumaLOG LISpro 100 UNIT/ML 3ML) 4 unit TIDAC SQ 10/24/24 11:30 11/23/24 11:29 10/26/24 12:41 4 UNIT Insulin Human Regular (humuLIN R 100 UNIT/ML 3ML) INSULIN SLIDING SCAL... ACHS SQ 10/18/24 21:00 11/17/24 20:59 10/26/24 12:42 3 UNIT Leptospermum Honey (Medihoney) 1 appl DAILY TP 10/20/24 09:00 11/19/24 08:59 10/20/24 07:40 1 APPL Losartan Potassium (CozAAR 25MG TAB) 25 mg DAILY PO 10/20/24 09:00 11/19/24 08:59 10/26/24 08:29 25 MG Magnesium Sulfate 50 ml @ 0 mls/hr PROTOCOL PRN IV OTHER [SEE ORDER COMMENTS] 10/18/24 20:00 11/17/24 19:59 Morphine Sulfate (morPHINE 2MG SYG) 2 mg ONCE STAT IVP 10/18/24 19:33 10/18/24 19:38 DC 10/18/24 20:04 2 MG Morphine Sulfate (morPHINE 2MG SYG) 2 mg Q4H PRN IV MODERATE PAIN (4-6) 10/18/24 20:00 10/23/24 06:36 DC 10/22/24 04:13 2 MG Multivitamins Therapeutic (Multivitamin Tablet) 1 tab DAILY PO 10/20/24 09:00 11/19/24 08:59 10/26/24 08:30 1 TAB Ondansetron HCl (zoFRAN 4MG INJ) 4 mg ONCE STAT IVP 10/18/24 19:33 10/18/24 19:38 DC 10/18/24 20:04 4 MG Ondansetron HCl (zoFRAN 4MG INJ) 4 mg Q6H PRN IV NAUSEA/VOMITING 10/18/24 20:00 11/17/24 19:59 10/20/24 02:40 4 MG Oxycodone/ Acetaminophen (perCOCET) 1 tab Q4H PRN PO SEVERE PAIN (7-10) 10/20/24 11:30 10/25/24 14:29 DC 10/25/24 03:39 1 TAB Oxycodone/ Acetaminophen (perCOCET) 1 tab Q4H PRN PO PAIN LEVEL 7 TO 10 10/26/24 08:30 11/02/24 08:29 10/26/24 08:30 1 TAB Piperacillin Sod/ Tazobactam Sod 50 ml @ 12.5 mls/hr Q8H IV 10/19/24 04:00 10/29/24 03:59 10/26/24 12:38 12.5 MLS/HR Piperacillin Sod/ Tazobactam Sod (Zosyn 3.375gm+NS 50ml) 3.375 gm ONCE STAT IV 10/18/24 19:31 10/18/24 19:38 DC 10/18/24 20:04 3.375 GM Potassium Chloride 100 ml @ 100 mls/hr AD PRN IV POTASSIUM PROTOCOL 10/18/24 20:00 11/17/24 19:59 Potassium Chloride (K-Dur/Klor-Con 20meq) 20 meq AD PRN PO POTASSIUM PROTOCOL 10/18/24 20:00 11/17/24 19:59 10/26/24 08:29 20 MEQ Potassium Chloride (KCl 10% Elixir 20meq/15ml) 20 meq AD PRN PO POTASSIUM PROTOCOL 10/18/24 20:00 11/17/24 19:59 Vancomycin HCl 250 ml @ 125 mls/hr ONCE IV 10/18/24 20:00 10/18/24 20:20 DC Vancomycin HCl 250 ml @ 125 mls/hr Q12H IV 10/21/24 21:00 10/31/24 20:59 10/26/24 08:31 125 MLS/HR Vancomycin HCl (Vancomycin 750mg) 750 mg Q12H IVPB 10/19/24 09:00 10/21/24 21:00 DC 10/21/24 08:44 750 MG Vancomycin HCl (Vancomycin Protocol) 1 each AD IV 10/18/24 20:30 11/01/24 20:29 DIAGNOSTICS / RADIOLOGY: [address] [address] IMAGING REPORT Signed PATIENT: GENIE GONZALES MR#: [id number] : 1950 SEX: M AGE: 74 LOCATION: [facility] ORDER 1611 STATUS: REG ER REPORT#: [id number] SERVICE 1609 REASON: wound ORDERING PHYSICIAN: BONITA FIGUEROA NP PROCEDURE: TIBFIB LT - TIBIA/FIBULA 2VWS LT TIBIA/FIBULA 2VWS LT HISTORY: Wound COMPARISON: None TECHNIQUE: 2 images of the left tibia and fibula were obtained. FINDINGS: There is no acute displaced fracture or dislocation. There is soft tissue swelling. Vascular calcifications are seen. Small calcaneal spur is seen. Evaluation for osteomyelitis is limited with radiographs. Degenerative changes are seen. IMPRESSION: 1. Findings as described above. DICTATED BY: PRAKASH MACK MD DATE: 10/18/24 1637 ELECTRONICALLY SIGNED BY: PRAKASH MACK MD DATE: 10/18/24 1640 ASSESSMENT: Chronic left leg ulcer with suspected pyoderma gangrenosum, s/p debridement, skin biopsy and wound VAC placement. Left lower extremity cellulitis. Diabetic leg ulcer with 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 Continue on heart healthy and consistent carb diet Suspected Pyoderma Gangrenosum Clinically, the ulcer looks like pyoderma gangrenosum. Hepatitis panel nonreactive on admission. Continue IV Vancomycin and Zosyn as per ID consult recommendation Patient had undergone debridement of left lower leg on 10/20/24 by general surgery consult. The aerobic culture is positive for Enterococcus faecalis, Enterobacter or manage she, E coli and Proteus mirabilis. Continue IV dexamethasone 20 mg 50 ml @ 100 ml/hour as per Hematology consult recommendation. Wound management recommended wound VAC dressing TTS. 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 Continue IV vancomycin and IV zosyn. Aerobic wound culture showed an E coli, Enterococcus faecalis, Proteus mirabilis. History of PVD with PCI Continue Clopidogrel. Arterial ultrasound showed atherosclerotic disease. Abnormal monophasic waveforms in left distal popliteal, left posterior tibial, anterior tibial and dorsalis pedal arteries with hyperemic flow. Consultation with Cardiology appreciated and recommended aspirin 81, clop [id number] and atorvastatin 40 mg. CTA runoff showed preserved flow bilaterally. Uncontrolled diabetes POA Continue glucose checks AC & HS. Follow insulin sliding scale with hypoglycemia protocol HbA1c is 10.3% on admission. Glucose level in the morning 174. Continue Lantus to 30 units HS and 4 units of insulin lispro t.i.d. pre meals. Continue gabapentin to 200 mg t.i.d. Hypertension POA Continue home medication Losartan and hydrochlorothiazide. Hyperlipidemia POA Continue [address] abdomen unremarkable Pending on insurance approval for Solara placement. Lovenox 30 mg SQ daily for DVT prophylaxis Famotidine 20 mg p.o. bid for GI prophylaxis PRN medication for fever,pain,cough ,nausea and vomiting. ATTESTATION BY PHYSICIAN I have seen and examined the patient. I reviewed the documentation, medical decision making, and treatment plan as noted by the resident provider above. I agree with the findings and plan of care. Rohit Rob MD, KRUPALI P MD October 26, 2024 13:57
--- NOTE | 2024-10-26 17:45 | PN ---
INFECTIOUS DISEASE PROGRESS NOTE Date of Service: October 26, 2024 SUBJECTIVE: This is a 74-year-old male patient who was seen and examined at bedside in room 303. Patient is awake, alert and oriented x3. Patient is s/p debridement and skin biopsy of left leg wound and wound VAC placement on 10/20/2024. No fever, temperature is 98.8. We will place Picc line. Still pending insurance approval to [facility]. Will continue on vancomycin and Zosyn IV. PHYSICAL EXAM EYES: Anicteric. Pupils equal and reactive. HENT: No oral thrush seen, moist Oral mucosa NECK: Supple, no JVD or thyromegaly. LUNGS: Good air entry. No rales, no rhonchi. CARDIOVASCULAR: S1, S2 regular. No murmur heard. ABDOMEN: Soft, non tender, bowel sounds present, no organomegaly. CENTRAL NERVOUS SYSTEM: Awake, alert, oriented x 3. SKIN: No rashes, no swelling. LYMPHATICS: No peripheral lymphadenopathy. MUSCULOSKELETAL: No joint swelling, erythema or tenderness. EXTREMITIES: No cyanosis or clubbing. Chronic left leg ulcer with possible pyoderma gangrenosum BACK: No deformity, no pressure ulcer. GENITOURINARY: No dysuria or hematuria.. Vital Sign (Last 12 Hours) 10/26/24 10/26/24 10/26/24 10/26/24 07:30 08:00 12:00 16:00 Temp 97.3 98.8 98.1 Pulse 57 75 73 Resp 20 20 18 B/P (MAP) 139/71 132/67 132/61 Pulse Ox 99 99 99 96 O2 Delivery Room Air* Room Air Room Air Room Air O2 Flow Rate 0 FiO2 21 21 21 21 Intake & Output (last 24hrs) 10/25/24 10/25/24 10/26/24 15:00 23:00 07:00 Intake Total 800 ml Balance 800 ml LABS: Laboratory: Test 10/26/24 11:33 10/26/24 07:38 10/26/24 07:35 10/26/24 03:57 Range/Units Whole Blood Glucose 223 H 70-110 MG/DL Bedside Glucose Comment Notified Nurse Prothrombin Time 10.6 9.6-11.6 SEC Prothromb Time International Ratio 1.00 0.85-1.15 Vancomycin Level Trough 11.6 10.0-20.0 UG/ML White Blood Count 11.2 H 4.8-10.8 K/uL Red Blood Count 4.54 4.50-6.20 MIL/uL Hemoglobin 14.1 14.0-18.0 g/dL Hematocrit 41.2 L 42-54 % Mean Corpuscular Volume 90.7 79-99 fL Mean Corpuscular Hemoglobin 31.1 27.0-33.0 pg Mean Corpuscular Hemoglobin Concent 34.2 32.0-36.0 g/dL Red Cell Distribution Width 12.6 11.0-15.5 % Platelet Count 319 130-400 K/uL Mean Platelet Volume 10.4 7.5-10.5 fL Immature Granulocyte % (Auto) 0.6 0-1 % Neutrophils (%) (Auto) 78.4 H 40.0-77.0 % Lymphocytes (%) (Auto) 15.0 L 21.0-51.0 % Monocytes (%) (Auto) 5.9 3.0-13.0 % Eosinophils (%) (Auto) 0.0 0.0-8.0 % Basophils (%) (Auto) 0.1 0.0-5.0 % Neutrophils # (Auto) 8.7 H 1.8-7.7 K/uL Lymphocytes # (Auto) 1.7 1.0-4.8 K/uL Monocytes # (Auto) 0.7 0.1-1.0 K/uL Eosinophils # (Auto) 0.00 0.00-0.70 K/uL Basophils # (Auto) 0.01 0.00-0.20 K/uL Absolute Immature Granulocyte (auto 0.07 0-1 K/uL Nucleated Red Blood Cells 0.0 0.0-0.19 % Sodium Level 136 136-145 mmol/L Potassium Level 3.8 3.5-5.1 mmol/L Chloride Level 105 101-111 mmol/L Carbon Dioxide Level 24 21-32 mmol/L Blood Urea Nitrogen 19 H 7-18 mg/dL Creatinine 0.7 0.5-1.3 mg/dL Glomerular Filtration Rate Calc 97 >90 mL/min Random Glucose 194 H 70-105 mg/dL Total Calcium 8.3 L 8.5-10.1 mg/dL Magnesium Level 2.20 1.80-2.40 mg/dL ASSESSMENT: Chronic left leg ulcer with possible pyoderma gangrenosum, s/p debridement, skin biopsy and wound VAC placement on 10/20/2024. Left leg with polymicrobial infection. Left lower extremity cellulitis. Leukocytosis, possibly due to the IV steroids.. Diabetes mellitus. Peripheral vascular disease. PLAN: Continue Zosyn. Continue vancomycin per pharmacy protocol. Continue IV steroids. Continue antidiabetics. Continue wound care as recommended by General surgery, currently on wound VAC therapy. Continue pain management. Continue GI prophylaxis. Pending insurance approval to [facility] and one more telemetry monitoring day. We will place midline. This case was reviewed and discussed with my supervising physician and the above assessment and plan was formulated and agreed upon. ATTESTATION BY PHYSICIAN I have seen and examined the patient. I reviewed the documentation, medical decision making, and treatment plan as noted by the mid-level provider above. I agree with the findings and plan of care. JUNIE KNOWLES MD, MIRTA L [facility] October 26, 2024 17:45
[2024-10-26] MEDS: hydroMORPHone 1 MG INJ IVP PRN (20:48)
--- NOTE | 2024-10-26 21:38 | HMCIMG ---
CHEST 1VW CLINICAL HISTORY: picc line placement COMPARISON: 06/19/2023 TECHNIQUE: Single view of the chest was obtained. FINDINGS: Lungs are clear. The cardiac size and mediastinum are unremarkable. The bony structures are within normal limits. There is been interval placement of a PICC line with tip overlying the superior vena cava. IMPRESSION: PICC tip in the superior vena cava.
[2024-10-27 04:00] VITALS: BP 145/74; PULSE 64; RESP 20; TEMP 98.7
[2024-10-27 05:09] LABS: BASOPHILS # (AUTO) 0.02 K/uL (0.00-0.20); BASOPHILS % (AUTO) 0.1 % (0.0-5.0); HEMATOCRIT 41.7 % (42-54); IMMATURE GRANULOCYTE ABSOLUTE 0.11 K/uL (0-1); LYMPHOCYTES % (AUTO) 6.9 % (21.0-51.0); MEAN CORPUSCULAR HGB CONC 33.8 g/dL (32.0-36.0); MEAN CORPUSCULAR VOLUME 91.6 fL (79-99); MONOCYTES # (AUTO) 0.1 K/uL (0.1-1.0); MONOCYTES % (AUTO) 0.8 % (3.0-13.0); NEUTROPHILS # (AUTO) 12.8 K/uL (1.8-7.7); NEUTROPHILS % (AUTO) 91.4 % (40.0-77.0); PLATELET COUNT (AUTO) 322 K/uL (130-400); RED BLOOD CELL COUNT(AUTO) 4.55 MIL/uL (4.50-6.20); RED CELL DISTRIBUTION WIDTH 12.7 % (11.0-15.5)
[2024-10-27 05:26] LABS: CREATININE 0.6 mg/dL (0.5-1.3); MAGNESIUM 2.2 mg/dL (1.80-2.40); POTASSIUM 4.3 mmol/L (3.5-5.1)
[2024-10-27 08:00] VITALS: BP 125/80; PULSE 74; RESP 18; TEMP 97.4; O2SAT 98
[2024-10-27 12:00] VITALS: BP 130/70; PULSE 62; RESP 18; TEMP 98
--- NOTE | 2024-10-27 15:14 | PN ---
[facility] PROGRESS NOTE Date of Service: October 27, 2024 Time of Service: 15:11 SUBJECTIVE: This is a 74 year old male with past medical history of PVD with PCI ,diabetes,hypertension ,GERD and hyperlipidemia who presents to the ED for complaints of severe pain to left leg ulcer and swelling and he noticed bloody drainage this afternoon so he decided to come to the ED for further evaluati on.Patient reports that this wound started since November 2023 and is doing medihoney dressing everyday but patient has not taken antibiotic.Patient states he had a stent placed by on both lower legs on 08/14/2024. Seen and examined patient in the Ed awake,alert and coherent appears uncomfortable complaints of left leg pain 8/10 pain level.Patient denies,fever,chills,nausea,vomiting,chest pain,palpitation and shortness of breath. Vital signs temperature 98.2 heart rate 72 blood pressure 161/75 saturation 98% on room air. Labs: Hemoglobin 13, hematocrit 41, platelet count 284. Glucose 281 calcitonin less than 0 point 0 five. X-ray of the left leg result revealed there is no acute displaced fracture or dislocation. There is soft tissue swelling. Vascular calcifications are seen. Small calcaneal spur is seen. Evaluation for osteomyelitis is limited with radiographs. Degenerative changes are seen. While in the ER patient received Zosyn IV, morphine 2 mg IV and Zofran 4 mg IV. We will admit patient for further medical management. 10/19/24 The patient was seen and examined today morning. His daughter is at the bedside. He is complaining on and off ulcer pain. Clinically, the ulcer looks like pyoderma gangrenosum. We will check hepatitis panel. Patient may have associated IBD. Infectious disease recommending general surgery and hem & onc. wound culture results pending. Arterial US showed atherosclerotic disease, abnormal monophasic arterial wave for seen in the left distal popliteal, left posterior tibial, anterior tibial and dorsalis pedal arteries with hyperemic flow. 10/20/24 patient was seen and evaluated. Patient underwent debridement of left leg ulcer. Aerobic culture showed 2+ Gram-negative rods, identification and sensitivity pending. Arterial ultrasound showed atherosclerotic disease. Abnormal monophasic waveforms in left distal popliteal, left posterior tibial, anterior tibial and dorsalis pedal arteries with hyperemic flow. We will consult Cardiology for peripheral arterial disease. Hepatitis B and C are nonreactive. Dr. Enciso started him on dexamethasone. Continue Plavix. 10/21/24: Patient was seen and evaluated this morning at bedside. Patient is POD #1 S/P debridement of left leg ulcer. Patient continues on Zosyn and Vancomycin, as per infectious disease recommendations. Pending cardiology recommendations for PAD. Patient continues on Dexamethasone per hematology recommendations. Patient denies bowel movement for 3 days, Miralax has been ordered. 10/22/2024 Patient is seen and examined at the bedside. He is postop day 2 s/p debridement of left leg ulcer. Vitals blood pressure 152/72. He complains of moderate pain in his left lower extremity. He did not have a bowel movement yet, lactulose has been ordered. Labs WBC increased from 11.3-15.2, glucose 210. aerobic cultures of the left leg ulcer resulted in E coli, Enterococcus faecalis and Proteus mirabilis. Pending cardiology consult. 10/23/24 patient was seen and evaluated in the morning. Cardiology Consult appreciated and recommended continue aspirin 81, [id number] and atorvastatin 40 mg. Patient just came back from CTA runoff and pending results. He is complaining of mild pain on his left calf. WBC trending down 15.2-12.4 today. His glucose level has been high and we will adjust the insulin regimen. Plan is to send him to LTAC. Case management consulted and we will wait for insurance approval. Continue wound VAC, IV Zosyn and vancomycin. 10/24/24 patient was seen and examined. Patient is complaining of mild left calf pain. Patient has also been having a lot of hiccups for the last 3 days. We will increase the dose of gabapentin to 200 t.i.d.. We will also obtain CT abdomen without contrast to rule out any abscess or perforation. WBC trending down from 12.4-10.6 today, hemoglobin 13.7. CMP unremarkable. CTA runoff showed preserved flow bilaterally. Management will take off the wound VAC today and evaluate and may put back the wound VAC if needed. Plan is for Solara placement. 10/25/24 the patient was seen and examined. Patient is complaining of mild left calf pain, denies any other complaints. His hiccups have resolved now. CT abdomen without contrast showed no acute findings. WBC went up from 10.6-11.3. Blood glucose 174 today. Vitals are stable. Patient is being referred to [facility] for IV antibiotics. Wound management recommended wound VAC dressing every alternative day. Patient is a day 2 telemetry today. Pending insurance approval for Solara placement. 10/26/24 the patient was seen and examined. Patient denies any complaints. No acute events overnight. Patient has a wound VAC in place. Wound management recommended wound VAC dressing TTS. His vitals are stable. WBC trending down to 11.2. CMP unremarkable. Glucose level this morning 166. Patient needs long-term antibiotics IV Zosyn and vancomycin. I will place an order for midline insertion. Pending insurance approval for Solara placement. 10/27/24 patient was seen and examined. He denies any complaints. No acute events overnight. Patient's wound VAC was changed yesterday. Vitals are stable. His WBC trended up from 11.2-14. Hemoglobin 14.1. Glucose 243. PICC line was inserted yesterday for IV antibiotics. Continue IV Zosyn and vancomycin. Pending insurance approval for Solara placement.. REVIEW OF SYSTEMS CONSTITUTIONAL: Denies fevers, chills, or night sweats. No unintentional weight loss reported. NEUROLOGICAL: Denies headache, amaurosis fugax, motor weakness, sensory deficit, vertigo/spinning sensation, gait abnormalities, or tremors. ENT: No hearing loss, otalgia, otorrhea, rhinitis, rhinorrhea, hoarseness, or sore throat. CARDIOVASCULAR: Denies any exertional angina, dyspnea on exertion, orthopnea, paroxysmal nocturnal dyspnea, palpitations, life-threatening arrhythmias, claudication. PULMONARY: Denies any shortness of breath, cough, phlegm/sputum, hemoptysis, pleuritic chest pain. SLEEP: Denies morning headaches, daytime somnolence or napping. Denies difficulty falling asleep, staying asleep, waking from sleep. Denies knowledge of snoring. GASTROINTESTINAL: Denies any type of dysphagia to either liquids or solids. Denies nausea, vomiting, pyrosis, early satiety, abdominal pain, diarrhea, constipation, or changes in stool consistency or caliber. Denies coffee-ground emesis, hematemesis, hematochezia, or melanotic stools. GENITOURINARY: Denies frequency, urgency, nocturia, hematuria or incontinence (Storage/Irritative symptoms.) Low urinary stream, straining to void, urinary intermittency or hesitancy, splitting of the voiding stream, terminal dribbling. ENDOCRINOLOGIC: Denies polyuria, polydipsia, polyphagia or heat/cold intolerances. HEMATOLOGIC: Denies thrombophilia/previous clots, or coagulopathy/bleeding disorders. ONCOLOGIC: Denies personal history of malignancy. DERMATOLOGIC: Denies rashes or pruritus. PSYCHIATRIC: Denies any suicidal or homicidal ideation. Denies hallucinations. PHYSICAL EXAM GENERAL APPEARANCE: The patient is awake, alert, and oriented, in no acute cardiopulmonary distress. NEUROLOGICAL: Cranial nerves II-XII grossly intact. Motor is 5/5 in bilateral upper and lower extremities proximal to distal. No sensory deficits. HEENT: Face is symmetric. Pupils are equal and reactive. Extraocular movements are intact. NECK: Supple. No JVD. No thyromegaly. No submental, submandibular, pre- /postauricular, occipital or supraclavicular lymphadenopathy. CHEST: Normal chest expansion. No Telemetry. LUNGS: Absence of any rales, rhonchi or any wheezing. CARDIOVASCULAR: Regular. S1 and S2 normal. No appreciable rubs, murmurs or gallops. ABDOMEN: Soft, nontender, and nondistended. There is no rebound, voluntary guarding, or rigidity. : Deferred. No Bonilla. EXTREMITIES: Non-edematous and not cyanotic. No clubbing. Good capillary refill. Wound VAC on left calf SKIN: Non healing wound ulcer to left leg. Vital Signs (last 8hr) Date Time Temp Pulse Resp B/P (MAP) Pulse Ox O2 Delivery O2 Flow Rate FiO2 10/27/24 12:00 98.1 62 18 130/70 97 Room Air 21 10/27/24 08:00 97.3 74 18 125/80 98 Room Air 21 LABS: Laboratory: Test 10/27/24 04:39 10/26/24 11:33 10/26/24 07:38 10/26/24 07:35 Range/Units White Blood Count 14.0 H 4.8-10.8 K/uL Red Blood Count 4.55 4.50-6.20 MIL/uL Hemoglobin 14.1 14.0-18.0 g/dL Hematocrit 41.7 L 42-54 % Mean Corpuscular Volume 91.6 79-99 fL Mean Corpuscular Hemoglobin 31.0 27.0-33.0 pg Mean Corpuscular Hemoglobin Concent 33.8 32.0-36.0 g/dL Red Cell Distribution Width 12.7 11.0-15.5 % Platelet Count 322 130-400 K/uL Mean Platelet Volume 10.6 H 7.5-10.5 fL Immature Granulocyte % (Auto) 0.8 0-1 % Neutrophils (%) (Auto) 91.4 H 40.0-77.0 % Lymphocytes (%) (Auto) 6.9 L 21.0-51.0 % Monocytes (%) (Auto) 0.8 L 3.0-13.0 % Eosinophils (%) (Auto) 0.0 0.0-8.0 % Basophils (%) (Auto) 0.1 0.0-5.0 % Neutrophils # (Auto) 12.8 H 1.8-7.7 K/uL Lymphocytes # (Auto) 1.0 1.0-4.8 K/uL Monocytes # (Auto) 0.1 0.1-1.0 K/uL Eosinophils # (Auto) 0.00 0.00-0.70 K/uL Basophils # (Auto) 0.02 0.00-0.20 K/uL Absolute Immature Granulocyte (auto 0.11 0-1 K/uL Nucleated Red Blood Cells 0.0 0.0-0.19 % Sodium Level 135 L 136-145 mmol/L Potassium Level 4.3 3.5-5.1 mmol/L Chloride Level 104 101-111 mmol/L Carbon Dioxide Level 24 21-32 mmol/L Blood Urea Nitrogen 19 H 7-18 mg/dL Creatinine 0.6 0.5-1.3 mg/dL Glomerular Filtration Rate Calc 101 >90 mL/min Random Glucose 243 H 70-105 mg/dL Total Calcium 8.0 L 8.5-10.1 mg/dL Magnesium Level 2.20 1.80-2.40 mg/dL Whole Blood Glucose 223 H 70-110 MG/DL Bedside Glucose Comment Notified Nurse Prothrombin Time 10.6 9.6-11.6 SEC Prothromb Time International Ratio 1.00 0.85-1.15 Vancomycin Level Trough 11.6 10.0-20.0 UG/ML Current Medications Medications (Trade) Dose Ordered Sig/Dorinda Route PRN Reason Start Time Stop Time Status Last Admin Dose Admin Acetaminophen (TYLenol 325MG TAB) 650 mg Q4H PRN PO MILD PAIN (1-3) 10/18/24 20:00 11/17/24 19:59 10/26/24 04:20 650 MG Acetaminophen (TYLenol 325MG TAB) 650 mg Q6H PRN PO TEMPERATURE GREATER THAN 101.5 10/18/24 20:00 11/17/24 19:59 Acetaminophen/ Codeine Phosphate (TYLenol-coDEINE TAB) 2 tab Q6H PRN PO SEVERE PAIN (7-10) 10/19/24 09:30 10/23/24 06:36 DC 10/19/24 16:45 2 TAB Aspirin (Aspirin 81mg Ec Tab) 81 mg DAILY PO 10/23/24 09:00 11/22/24 08:59 10/27/24 09:57 81 MG Atorvastatin Calcium (LIPItor 10MG) 5 mg HS PO 10/19/24 21:00 10/22/24 15:33 DC 10/21/24 21:49 5 MG Atorvastatin Calcium (LIPItor 40MG) 40 mg HS PO 10/22/24 21:00 11/21/24 20:59 10/26/24 20:51 40 MG Clopidogrel Bisulfate (plaVIX 75MG) 75 mg DAILY PO 10/20/24 09:00 11/19/24 08:59 10/27/24 09:57 75 MG Dexamethasone Sodium Phosphate (dexaMETHasone 4MG/ML 1ML VIAL) 20 mg Q24H IV 10/20/24 13:30 10/20/24 13:23 DC Dexamethasone Sodium Phosphate 20 mg/Sodium Chloride 50 ml @ 100 mls/hr Q24H IV 10/20/24 14:00 10/23/24 14:56 DC 10/22/24 15:05 100 MLS/HR Dexamethasone Sodium Phosphate 20 mg/Sodium Chloride 50 ml @ 100 mls/hr Q24H IV 10/23/24 15:00 11/22/24 14:59 10/26/24 14:44 100 MLS/HR Dextrose (D50w) 50 ml AD PRN IV HYPOGLYCEMIA PROTOCOL 10/18/24 20:00 11/17/24 19:59 Enoxaparin Sodium (Lovenox) 30 mg DAILY SQ 10/19/24 16:00 11/18/24 15:59 10/27/24 09:58 30 MG Famotidine (Pepcid 20mg Tab) 20 mg BID PO 10/18/24 21:00 11/17/24 20:59 10/27/24 09:58 20 MG Gabapentin (NEURontin 100 mg CAP) 100 mg TID PO 10/19/24 21:00 10/24/24 11:22 DC 10/24/24 09:04 100 MG Gabapentin (NEURontin 100 mg CAP) 200 mg TID PO 10/24/24 14:00 11/23/24 13:59 10/27/24 09:57 200 MG Glucagon (Glucagon 1mg Kit) 1 mg AD PRN IM HYPOGLYCEMIA PROTOCOL 10/18/24 20:00 11/17/24 19:59 Hydrochlorothiazide (hydroCHLOROthiazide 25MG) 12.5 mg DAILY PO 10/20/24 09:00 11/19/24 08:59 10/27/24 09:58 12.5 MG Hydromorphone HCl (DiLAUDid 1MG INJ) 1 mg Q3H3 PRN IVP SEVERE PAIN (7-10) 10/20/24 11:30 10/25/24 11:29 DC 10/24/24 13:51 1 MG Hydromorphone HCl (DiLAUDid 1MG INJ) 1 mg Q4H PRN IVP SEVERE PAIN (7-10) IF NPO 10/26/24 08:30 10/31/24 08:29 10/27/24 03:12 1 MG Insulin Glargine (LANtus 100 UNITS/ML 10 ML VIAL) 20 units HS SQ 10/19/24 21:00 10/23/24 13:56 DC 10/22/24 20:27 20 UNITS Insulin Glargine (LANtus 100 UNITS/ML 10 ML VIAL) 30 units HS SQ 10/23/24 21:00 11/22/24 20:59 10/26/24 20:57 30 UNITS Insulin Human Lispro (HumaLOG LISpro 100 UNIT/ML 3ML) 3 unit TIDAC SQ 10/23/24 17:00 10/24/24 10:39 DC 10/24/24 07:06 3 UNIT Insulin Human Lispro (HumaLOG LISpro 100 UNIT/ML 3ML) 4 unit TIDAC SQ 10/24/24 11:30 11/23/24 11:29 10/27/24 12:39 4 UNIT Insulin Human Regular (humuLIN R 100 UNIT/ML 3ML) INSULIN SLIDING SCAL... ACHS SQ 10/18/24 21:00 11/17/24 20:59 10/27/24 12:40 3 UNIT Leptospermum Honey (Medihoney) 1 appl DAILY TP 10/20/24 09:00 11/19/24 08:59 10/20/24 07:40 1 APPL Losartan Potassium (CozAAR 25MG TAB) 25 mg DAILY PO 10/20/24 09:00 11/19/24 08:59 10/27/24 09:58 25 MG Magnesium Sulfate 50 ml @ 0 mls/hr PROTOCOL PRN IV OTHER [SEE ORDER COMMENTS] 10/18/24 20:00 11/17/24 19:59 Morphine Sulfate (morPHINE 2MG SYG) 2 mg ONCE STAT IVP 10/18/24 19:33 10/18/24 19:38 DC 10/18/24 20:04 2 MG Morphine Sulfate (morPHINE 2MG SYG) 2 mg Q4H PRN IV MODERATE PAIN (4-6) 10/18/24 20:00 10/23/24 06:36 DC 10/22/24 04:13 2 MG Multivitamins Therapeutic (Multivitamin Tablet) 1 tab DAILY PO 10/20/24 09:00 11/19/24 08:59 10/27/24 09:58 1 TAB Ondansetron HCl (zoFRAN 4MG INJ) 4 mg ONCE STAT IVP 10/18/24 19:33 10/18/24 19:38 DC 10/18/24 20:04 4 MG Ondansetron HCl (zoFRAN 4MG INJ) 4 mg Q6H PRN IV NAUSEA/VOMITING 10/18/24 20:00 11/17/24 19:59 10/20/24 02:40 4 MG Oxycodone/ Acetaminophen (perCOCET) 1 tab Q4H PRN PO SEVERE PAIN (7-10) 10/20/24 11:30 10/25/24 14:29 DC 10/25/24 03:39 1 TAB Oxycodone/ Acetaminophen (perCOCET) 1 tab Q4H PRN PO PAIN LEVEL 7 TO 10 10/26/24 08:30 11/02/24 08:29 10/27/24 09:59 1 TAB Piperacillin Sod/ Tazobactam Sod 50 ml @ 12.5 mls/hr Q8H IV 10/19/24 04:00 10/29/24 03:59 10/27/24 12:33 12.5 MLS/HR Piperacillin Sod/ Tazobactam Sod (Zosyn 3.375gm+NS 50ml) 3.375 gm ONCE STAT IV 10/18/24 19:31 10/18/24 19:38 DC 10/18/24 20:04 3.375 GM Potassium Chloride 100 ml @ 100 mls/hr AD PRN IV POTASSIUM PROTOCOL 10/18/24 20:00 11/17/24 19:59 Potassium Chloride (K-Dur/Klor-Con 20meq) 20 meq AD PRN PO POTASSIUM PROTOCOL 10/18/24 20:00 11/17/24 19:59 10/26/24 08:29 20 MEQ Potassium Chloride (KCl 10% Elixir 20meq/15ml) 20 meq AD PRN PO POTASSIUM PROTOCOL 10/18/24 20:00 11/17/24 19:59 Vancomycin HCl 250 ml @ 125 mls/hr ONCE IV 10/18/24 20:00 10/18/24 20:20 DC Vancomycin HCl 250 ml @ 125 mls/hr Q12H IV 10/21/24 21:00 10/31/24 20:59 10/27/24 09:57 125 MLS/HR Vancomycin HCl (Vancomycin 750mg) 750 mg Q12H IVPB 10/19/24 09:00 10/21/24 21:00 DC 10/21/24 08:44 750 MG Vancomycin HCl (Vancomycin Protocol) 1 each AD IV 10/18/24 20:30 11/01/24 20:29 DIAGNOSTICS / RADIOLOGY: [address] [address] IMAGING REPORT Signed PATIENT: GENIE GONZALES MR#: [id number] : 1950 SEX: M AGE: 74 LOCATION: 3AH ORDER 02 STATUS: ADM IN REPORT#: [id number] SERVICE 01 REASON: picc line placement ORDERING PHYSICIAN: RAJESH PUTNAM MD PROCEDURE: CXR1VW - CHEST 1VW CHEST 1VW CLINICAL HISTORY: picc line placement COMPARISON: 06/19/2023 TECHNIQUE: Single view of the chest was obtained. FINDINGS: Lungs are clear. The cardiac size and mediastinum are unremarkable. The bony structures are within normal limits. There is been interval placement of a PICC line with tip overlying the superior vena cava. IMPRESSION: PICC tip in the superior vena cava. DICTATED BY: JEROME JIMENEZ DO DATE: 10/26/242132 ELECTRONICALLY SIGNED BY: JEROME JIMENEZ DO DATE: 10/26/242137 ASSESSMENT: Chronic left leg ulcer with suspected pyoderma gangrenosum, s/p debridement, skin biopsy and wound VAC placement. Left lower extremity cellulitis. Diabetic leg ulcer with 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 Continue on heart healthy and consistent carb diet Suspected Pyoderma Gangrenosum Clinically, the ulcer looks like pyoderma gangrenosum. Hepatitis panel nonreactive on admission. Continue IV Vancomycin and Zosyn as per ID consult recommendation Patient had undergone debridement of left lower leg on 10/20/24 by general surgery consult. The aerobic culture is positive for Enterococcus faecalis, Enterobacter or manage she, E coli and Proteus mirabilis. Continue IV dexamethasone 20 mg 50 ml @ 100 ml/hour as per Hematology consult recommendation. Wound management recommended wound VAC dressing TTS. 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 Continue IV vancomycin and IV zosyn. Aerobic wound culture showed an E coli, Enterococcus faecalis, Proteus mirabilis. History of PVD with PCI Continue Clopidogrel. Arterial ultrasound showed atherosclerotic disease. Abnormal monophasic waveforms in left distal popliteal, left posterior tibial, anterior tibial and dorsalis pedal arteries with hyperemic flow. Consultation with Cardiology appreciated and recommended aspirin 81, [id number] and atorvastatin 40 mg. CTA runoff showed preserved flow bilaterally. Uncontrolled diabetes POA Continue glucose checks AC & HS. Follow insulin sliding scale with hypoglycemia protocol HbA1c is 10.3% on admission. Glucose level in the morning 243. Continue Lantus to 30 units HS and 4 units of insulin lispro t.i.d. pre meals. Continue gabapentin to 200 mg t.i.d. Hypertension POA Continue home medication Losartan and hydrochlorothiazide. Hyperlipidemia POA Continue [address] abdomen unremarkable Pending on insurance approval for Solara placement. Lovenox 30 mg SQ daily for DVT prophylaxis Famotidine 20 mg p.o. bid for GI prophylaxis PRN medication for fever,pain,cough ,nausea and vomiting. ATTESTATION BY PHYSICIAN I have seen and examined the patient. I reviewed the documentation, medical decision making, and treatment plan as noted by the resident provider above. I agree with the findings and plan of care. Rohit Rob MD, KRUPALI P MD October 27, 2024 15:14
[2024-10-27 16:00] VITALS: BP 134/72; PULSE 62; RESP 18; TEMP 98
--- NOTE | 2024-10-27 19:29 | PN ---
INFECTIOUS DISEASE FOLLOWUP NOTE DATE OF SERVICE: 10/27/2024 SUBJECTIVE: The patient is seen and examined at bedside today. The patient has no fever, no chills. No nausea or vomiting. Pain to the left leg is well controlled. Denies depression or suicidal ideation. No heat or cold intolerance. No bleeding tendency. No dysuria or hematuria. PHYSICAL EXAMINATION: VITAL SIGNS: Temperature 97.2. EYES: No icterus. Pupils equal and reactive. HENT: No oral thrush seen. Moist oral mucosa. NECK: Supple. No JVD or thyromegaly. LUNGS: Good air entry. No rales. No rhonchi. CARDIOVASCULAR: S1 and S2, regular. No murmur heard. ABDOMEN: Full, soft, nontender. Bowel sound is present. CENTRAL NERVOUS SYSTEM: Awake, alert, and oriented x 3. No focal deficits. SKIN: No rashes. No itchiness. LYMPHATIC: No inguinal lymphadenopathy. BACK: No deformity. No pressure ulcer. MUSCULOSKELETAL: Wound involving the left lower leg sealed with a wound vacuum. ASSESSMENT: A 74-year-old male with multiple problems including: * Left leg chronic ulcer, status post debridement. * Possible pyoderma gangrenosum. * Polymicrobial infection. * Obesity. * Hypertension. * Peripheral vascular disease. PLAN: * Continue vacuum assisted wound closure. * Continue wound care. * Continue pain management. * Continue Zosyn. * Continue vancomycin. * Continue antiplatelet. TID: [id number] RECEIPT: [id number]
[2024-10-27 20:45] VITALS: O2SAT 94
--- NOTE | 2024-10-27 20:45 | NUR ---
MEDS SHIFT ASSESSMENT DONE, PLEASE REFER TO CHART. PT CLAIMS OF PAINS TO LLE WOUND SITE. MEDICATED WITH TYLENOL FOR PAINS AND DUE MEDS ADMINISTERED, TOLERATED WELL. KEPT RESTED AND COMFORTABLE IN BED. CALL LIGHT WITHIN REACH. FAMILY AT BEDSIDE. WILL RE-ASSESS PT.
[2024-10-27 22:25] VITALS: BP 131/76; PULSE 70; RESP 19; TEMP 98.4
[2024-10-28 01:39] VITALS: BP 144/69; PULSE 72; RESP 18; TEMP 98.5
[2024-10-28 04:57] LABS: BASOPHILS # (AUTO) 0.01 K/uL (0.00-0.20); BASOPHILS % (AUTO) 0.1 % (0.0-5.0); HEMATOCRIT 39.9 % (42-54); IMMATURE GRANULOCYTE ABSOLUTE 0.07 K/uL (0-1); LYMPHOCYTES # (AUTO) 1.3 K/uL (1.0-4.8); LYMPHOCYTES % (AUTO) 9.6 % (21.0-51.0); MEAN CORPUSCULAR HEMOGLOBIN 31.7 pg (27.0-33.0); MEAN CORPUSCULAR HGB CONC 35.1 g/dL (32.0-36.0); MEAN CORPUSCULAR VOLUME 90.5 fL (79-99); MONOCYTES # (AUTO) 0.5 K/uL (0.1-1.0); MONOCYTES % (AUTO) 3.5 % (3.0-13.0); NEUTROPHILS # (AUTO) 11.2 K/uL (1.8-7.7); NEUTROPHILS % (AUTO) 86.3 % (40.0-77.0); PLATELET COUNT (AUTO) 330 K/uL (130-400); RED BLOOD CELL COUNT(AUTO) 4.41 MIL/uL (4.50-6.20); RED CELL DISTRIBUTION WIDTH 12.9 % (11.0-15.5)
[2024-10-28 05:23] VITALS: BP 120/62; PULSE 68; RESP 18; TEMP 97.8
[2024-10-28 05:26] LABS: CREATININE 0.8 mg/dL (0.5-1.3); MAGNESIUM 2.1 mg/dL (1.80-2.40); POTASSIUM 4.1 mmol/L (3.5-5.1)
[2024-10-28 05:33] LABS: PLATELET MORPHOLOGY PLT CLUMPS PRESENT; WBC MORPHOLOGY CONSISTENT W/DIFF
--- NOTE | 2024-10-28 06:33 | NUR ---
PAIN PT CALLS FOR PAIN MEDICATION, CLAIMS HIS LEFT LEG WHERE WOUND VAC IS IS HURTING HIM A LOT. DUE INSULIN DOSES ADMINISTERED, TOLERATED WELL. MEDICATED WITH DILAUDID IV FOR PAIN. KEPT COMFORTABLE IN BED. CALL LIGHT WITHIN REACH. WILL RE-ASSESS PT.
[2024-10-28 08:08] VITALS: BP 143/73; PULSE 65; RESP 17; TEMP 97.8
[2024-10-28 11:35] VITALS: BP 132/72; PULSE 73; RESP 18; TEMP 98
[2024-10-28] MEDS: BisaCODYL 5 MG TABLET.DR PO ONE (12:22)
--- NOTE | 2024-10-28 12:33 | DS ---
Discharge Summary Hospital Course Summary: This is a 74 year old male with past medical history of PVD with PCI ,diabetes,hypertension ,GERD and hyperlipidemia who presented to the ED on 10/18/24 for complaints of severe pain to left leg ulcer and swelling and he noticed bloody drainage this afternoon so he decided to come to the ED for further evaluation. Patient reported that this wound started since November 2023 and is doing medihoney dressing everyday but patient had not taken antibiotic. Patient stated he had a stent placed by on both lower legs on 08/14/2024. He appeared uncomfortable and complainted of left leg pain 8/10 pain level. Patient denied fever,chills,nausea,vomiting,chest pain,palpitation and sh ortness of breath. Vital signs temperature 98.2 heart rate 72 blood pressure 161/75 saturation 98% on room air. Labs: Hemoglobin 13, hematocrit 41, platelet count 284. Glucose 281 calcitonin less than 0 point 0 five. X-ray of the left leg result revealed there is no acute displaced fracture or dislocation. There was soft tissue swelling. Vascular calcifications are seen. Small calcaneal spur is seen. Evaluation for osteomyelitis is limited with radiographs. Degenerative changes are seen. While in the ER patient received Zosyn IV, morphine 2 mg IV and Zofran 4 mg IV. Patient was admitted for further evaluation and medical management of left leg ulcer. On 10/19/24, complaining of on and off also pain. Clinically the ulcer looked like pyoderma gangrenosum. General surgery, Infectious Disease, Wound management and Hematology consult were obtained. Arterial US showed atherosclerotic disease, abnormal monophasic arterial wave for seen in the left distal popliteal, left posterior tibial, anterior tibial and dorsalis pedal arteries with hyperemic flow. On 10/20/24, patient underwent debridement of left leg ulcer performed by Dr. Betancourt. Aerobic culture showed 2+ Gram-negative rods, positive for E coli, Enterococcus faecalis and Proteus mirabilis. Hepatitis B and C are nonreactive. Dr. Enciso started him on dexamethasone. Cardiology was consulted for PAD and recommended continue aspirin 81, [id number] and atorvastatin 40 mg. CTA runoff showed preserved flow bilaterally. Status post debridement patient continued on wound VAC and wound management recommended wound VAC cleaning/change every alternate day. Patient continued on IV Zosyn and vancomycin as per ID recommendations. On 10/22/24 WBC increased from 11.3-15.2, glucose 210. He complained of moderate pain in his left lower extremity. On 10/23/24 WBC trended down 15.2-12.4. On 10/24/24, Patient was complaining of mild left calf pain. Patient had also been having a lot of hiccups for the last 3 days. We increased the dose of gabapentin to [address] abdomen was ordered to rule out any abscess or perforation, which came back table. On 10/25/24, cups resolved. WBC went up from 10.6-11.3. Referral for Solera placement was sent. On 10/26/24, WBC trending down to 11.2. CMP unremarkable. Glucose level 166. PICC line was inserted for IV antibiotics at [facility]. On 10/27/24, WBC trended up from 11.2-14. Hemoglobin 14.1. Glucose 243. On 10/28/24, patient is clinically stable. Vitals are stable. Patient got acceptance at [facility]. His WBC trended down to 13. His blood glucose is 200. Increased his Lantus dose to 35 units and lispro5 units t.i.d. pre meals. Med rec printout we will be given. Continue IV Zosyn and vancomycin for 4 weeks. Patient is advised to follow up with PCP within 3-5 days after the discharge. Follow up with wound management, Infectious Disease, General surgery and Hematology within 1-2 weeks after the discharge. Dam Tender Assistant(s): General surgery : , wound management : Dr. Gomez, infectious di sease : Dr. Vivas, hematology : Dr. Enciso, Cardiology : Dr. Castro Procedure(s): OPERATIVE REPORT Name: GENIE GONZALES Acct: [id number] MR: [id number] : 1950 Admit Date: 10/18/24 ASIA CM MD [place] [address] [place] [address] DATE OF PROCEDURE: 10/20/2024 PREOPERATIVE DIAGNOSIS: Nonhealing left leg wound. POSTOPERATIVE DIAGNOSIS: Nonhealing left leg wound. PROCEDURE PERFORMED: Debridement and drainage infected left leg wound, skin and fat biopsy, placement of wound VAC. SURGEON: Asia Cm MD ANESTHESIA: General. ESTIMATED BLOOD LOSS: Minimal FINDINGS: Infected left leg wound. Wound measures about 12 x 12 cm. Debridement is excisional. It involves skin and necrotic fat. SPECIMEN REMOVED: Necrotic tissue, skin and fat. Pus was sent for gram stain, culture and sensitivity. [facility] [address] [place], [place] [id number] IMAGING REPORT Signed PATIENT: GENIE GONZALES MR#: [id number] : 1950 SEX: M AGE: 74 LOCATION: EDH ORDER 1611 STATUS: REG ER REPORT#: [id number] SERVICE 160 REASON: wound ORDERING PHYSICIAN: BONITA FIGUEROA NP PROCEDURE: TIBFIB LT - TIBIA/FIBULA 2VWS LT TIBIA/FIBULA 2VWS LT HISTORY: Wound COMPARISON: None TECHNIQUE: 2 images of the left tibia and fibula were obtained. FINDINGS: There is no acute displaced fracture or dislocation. There is soft tissue swelling. Vascular calcifications are seen. Small calcaneal spur is seen. Evaluation for osteomyelitis is limited with radiographs. Degenerative changes are seen. IMPRESSION: 1. Findings as described above. DICTATED BY: PRAKASH MACK MD DATE: 10/18/24 1633 ELECTRONICALLY SIGNED BY: PRAKASH MACK MD DATE: 10/18/[address] [place] [address] [place] [phone] IMAGING REPORT Signed PATIENT: GENIE GONZALES MR#: [id number] : 1950 SEX: M AGE: 74 LOCATION: 3AH ORDER 08 STATUS: ADM IN [facility] REPORT#: [id number] SERVICE 04 REASON: pain and swelling to left lower extremity ORDERING PHYSICIAN: DIANA BLACK COMMUNICATIONS EDITOR PROCEDURE: ART U LE - US ARTERIAL UNILA LOW EXT DUPL US ARTERIAL UNILA LOW EXT DUPL HISTORY: Pain and swelling COMPARISON: None TECHNIQUE: Left lower extremity arterial Doppler ultrasound study was performed. FINDINGS: Abnormal monophasic arterial waveforms are seen in the left distal popliteal, left posterior tibial, anterior tibial and dorsalis pedal arteries with hyperemic flow. Normal triphasic and biphasic arterial waveforms are noted in the left common femoral, deep femoral, superficial femoral, and popliteal arteries. On the left, the peak systolic velocity of the common femoral artery is 123 cm/s, the proximal femoral artery is 164 cm/s, the mid femoral artery is 95 cm/s, the distal femoral artery is 63 cm/s, the proximal popliteal artery is 78 cm/s, the distal popliteal artery is 75 cm/s, the anterior tibial artery is 21 cm/s, the posterior tibial artery artery is 200 cm/s,and the dorsalis pedal artery is 17 cm/s. IMPRESSION: 1. Atherosclerotic disease. 2. Abnormal monophasic arterial waveforms are seen in the left distal popliteal, left posterior tibial, anterior tibial and dorsalis pedal arteries with hyperemic flow. DICTATED BY: PRAKASH MACK MD DATE: 10/19/24952 ELECTRONICALLY SIGNED BY: PRAKASH MACK MD DATE: 10/19/[address] [address] IMAGING REPORT Signed PATIENT: GENIE GONZALES MR#: [id number] : 1950 SEX: M AGE: 74 LOCATION: EDHIP ORDER 08 STATUS: ADM IN REPORT#: [id number] SERVICE 04 REASON: pain and swelling to left lower extremity ORDERING PHYSICIAN: DIANA BLACK COMMUNICATIONS EDITOR PROCEDURE: VENOUS UNI - US VENOUS DOPPLER UNILATERAL US VENOUS DOPPLER UNILATERAL HISTORY: Pain and swelling COMPARISON: None TECHNIQUE: Left lower extremity venous Doppler ultrasound study was performed. FINDINGS: The left common femoral, femoral, popliteal, and posterior tibial veins are visualized. Normal flow with augmentation and compressibilities are demonstrated. Left greater saphenous vein is patent. IMPRESSION: 1. No evidence of deep venous thrombosis is seen. DICTATED BY: PRAKASH MACK MD DATE: 10/18/242050 ELECTRONICALLY SIGNED BY: PRAKASH MACK MD DATE: 10/18/242053 [place] [address] [place] [address] IMAGING REPORT Signed PATIENT: GENIE GONZALES MR#: [id number] : 1950 SEX: M AGE: 74 LOCATION: 3AH ORDER 1627 STATUS: ADM IN REPORT#: [id number] SERVICE 0800 REASON: PAD ORDERING PHYSICIAN: FLORIN KNOX COMMUNICATIONS EDITOR PROCEDURE: CTA ABDAOR - CT ANGIO ABD AORTA W RUNOFF Exam Type: CT angiogram abdomen and pelvis and lower extremities run-off with contrast Exam Type: CT ANGIO ABD AORTA W RUNOFF Clinical Information: PAD Comparison: None Technique: Routine helical scanning at 5mm collimation through the abdomen and pelvis after contrast administration. In addition, sagittal and coronary formations of the abdomen pelvis and surface rendering three-dimensional reconstructions of the abdominal aorta and the bilateral lower extremity arterial system were performed. Findings: The examination shows atheromatous plaque throughout, without occlusions. The runoff is preserved bilaterally with flow to the anterior and posterior arches via patent anterior and posterior tibial arteries. There is no aneurysm. There is no occlusion. There is no dissection. There is no extravasation. There is no aortic aneurysm. There is no occlusion. There is no dissection. There is no extravasation to suggest laceration or rupture. No evidence of nephro or ureterolithiasis is found. No hydronephrosis or ureteral dilatation is seen. The visualized portion of the stomach is unremarkable. It shows no wall thickening. No gross ulceration is seen. It is not overly distended. There are no surrounding inflammatory changes. No wall lesions are identified to suggest cancer. The visualized portion of the spleen is unremarkable. It is not enlarged. The pancreas shows normal anatomy. It is not fatty replaced. It shows no lesions. The pancreatic duct is not dilated. The gallbladder is unremarkable. It shows no cholelithiasis. The gallbladder wall is normal in thickness. There is no pericholecystic fluid. The is no acute or chronic inflammation noted. The adrenal glands are unremarkable. There is no enlargement. No lesions are noted. The visualized portion of the liver is unremarkable. It shows no focal masses. The appendix is unremarkable. It shows no evidence of inflammation. No appendicolith is seen. The small bowel is unremarkable. There is no evidence of dilatation to suggest obstruction. No evidence of adynamic ileus is seen. There is no small bowel wall thickening to suggest enteritis. The colon is unremarkable. The urinary bladder is unremarkable. There is no wall thickening to suggest tumor or inflammation. There are no intraluminal calculi. There are no diverticula. There is no evidence of chronic bladder outlet obstruction. There is no evidence of urinary bladder distention to suggest urinary retention. The prostate is enlarged. The bony and vascular structures are unremarkable for the patient's age. IMPRESSION: Preserved runoff bilaterally. This study was performed using dose reduction techniques to include automated exposure control and/or adjustment of the mA and/or kV according to patient size. DICTATED BY: RUPA PACK MD DATE: 10/24/24828 ELECTRONICALLY SIGNED BY: RUPA PACK MD DATE: 10/24/2438 [place] [id number] IMAGING REPORT Signed PATIENT: GENIE GONZALES MR#: [id number] : 1950 SEX: M AGE: 74 LOCATION: 3AH ORDER 1123 STATUS: ADM IN REPORT#: [id number] SERVICE 1121 REASON: Hiccups for last 3 days ORDERING PHYSICIAN: PEDRITO MANE MD PROCEDURE: ABDO WO - CT ABDOMEN W/O CONTRAST CT ABDOMEN W/O CONTRAST HISTORY: Hiccups COMPARISON: 10/24/2019 TECHNIQUE: Multiple sequential axial images of the abdomen were obtained from the dome of the diaphragm through iliac crests. Patient was not given contrast through intravenous route. Oral contrast was not given. FINDINGS: No pleural effusion is seen bilaterally. There is no evidence of parenchymal disease or pulmonary nodule of the visualized lower lungs. Degenerative changes are seen of the thoracolumbar spine. The liver measures 17 cm. Gallbladder is distended. The liver, spleen, adrenal glands and pancreas are unremarkable. There is no evidence of hydronephrosis bilaterally. No evidence of renal stone is seen. Fecal material is seen in the colon. There are normal-sized retroperitoneal and mesenteric lymph nodes. No ascites is seen. Atherosclerotic changes are present. IMPRESSION: 1. No acute finding. CT was performed with one or more following dose reduction techniques: automated exposure control, adjustment of the mA and kv according to patient's size, or use of a iterative reconstruction technique. DICTATED BY: PRAKASH MACK MD DATE: 10/25/24942 ELECTRONICALLY SIGNED BY: PRAKASH MACK MD DATE: 10/25/2449 [facility] [address] [phone] IMAGING REPORT Signed PATIENT: GENIE GONZALES MR#: [id number] : 1950 SEX: M AGE: 74 LOCATION: [facility] ORDER 02 STATUS: ADM IN REPORT#: [id number] SERVICE 01 REASON: picc line placement ORDERING PHYSICIAN: RAJESH PUTNAM MD PROCEDURE: CXR1VW - CHEST 1VW CHEST 1VW CLINICAL HISTORY: picc line placement COMPARISON: 06/19/2023 TECHNIQUE: Single view of the chest was obtained. FINDINGS: Lungs are clear. The cardiac size and mediastinum are unremarkable. The bony structures are within normal limits. There is been interval placement of a PICC line with tip overlying the superior vena cava. IMPRESSION: PICC tip in the superior vena cava. DICTATED BY: JEROME JIMENEZ DO DATE: 10/26/242132 ELECTRONICALLY SIGNED BY: JEROME JIMENEZ DO DATE: 10/26/242137 RUN DATE: 10/23/24 [facility] PAGE 1 RUN TIME: [address] [address] Department of Laboratories CLIA # [id number] Tying Machine Operator: Mehdi Perrin DO Specimen Report PATIENT: GENIE GONZALES ACCT: [id number] LOC: 3A U: [id number] AGE/SX: 74/M ROOM: 303 RE10/18/[address]: RAJESH PUTNAM MD : 1950 BED: 1 DIS: STATUS: ADM IN TLOC: SPEC: [id number] JOE: 10/18/24 STATUS: COMP REQ: [id number] RECD: 10/18/[address]: BONITA FIGUEROA NP SOURCE: BLOOD ENTR: 10/18/[address]: ALFONSO SPDESC: ISABEL VENEGAS PA-C ORDERED: BLOOD CULTURE COMMENTS: What is the Source? BLOOD Procedure Result Derrell Date-Time BLOOD CULT Final 10/23/24-1623 NO GROWTH AFTER 5 DAYS RUN DATE: 10/22/24 [facility] PAGE 1 RUN TIME: 8210 [address] [place] [address], [place] [address] Department of Laboratories CLIA # [id number] Tying Machine Operator: Mehdi Perrin DO Specimen Report PATIENT: GENIE GONZALES ACCT: [id number] LOC: [facility] U: [id number] AGE/SX: 74/M ROOM: 303 RE10/18/[address]: RAJESH PUTNAM MD : 1950 BED: 1 DIS: STATUS: ADM IN TLOC: SPEC: [id number] JOE: 10/18/24 STATUS: COMP REQ: [id number] RECD: 10/18/[address]: DIANA BLACK SOURCE: LEG ENTR: 10/18/24-[address] [facility] [address]: JUNIE VIVAS MD [facility] RAJESH INTERIANO MD,ISABEL SHAW MD, PA-C ORDERED: DAJUAN CULTURE ----- ------- Procedure Result Derrell Date-Time ANAEROBIC CULTURE Final 10/22/24-2223 [facility] COLONY DESCRIPTION: REPORT 1: NO ANAEROBES AT 24-35 HOURS; STUDIES TO CONTINUE REPORT 2: NO ANAEROBES AT 48-59 HOURS; STUDIES TO CONTINUE REPORT 3: NO ANAEROBES AT 72-96 HOURS Test(s) performed by: [facility] [address] [place] [address] [facility] Test Performed at: [facility] [address] [place], [place] Medical Education Supervisor: Conor Harding D.O. RUN DATE: 10/22/24 [facility] PAGE 1 RUN TIME: 642 [address] [place] [address], [place] [address] Department of Laboratories CLIA # [id number] Tying Machine Operator: Mehdi Perrin DO Specimen Report PATIENT: GENIE GONZALES ACCT: [id number] LOC: 3A U: [id number] AGE/SX: 74/M ROOM: 303 RE10/18/[address]: RAJESH PUTNAM MD : 1950 BED: 1 DIS: STATUS: ADM IN TLOC: SPEC: [id number] JEO: 10/18/24 STATUS: COMP REQ: [id number] RECD: 10/18/[address] [facility] [address]: DIANA BLACK [facility] SOURCE: LEG ENTR: 10/18/24-[address]: JUNIE VIVAS MD SPDESC: LEFT RAJESH PUTNAM MD,ISABEL SHAW MD, PA-C ORDERED: AEROBIC CULTURE Procedure Result Derrell Date-Time AEROBIC CULTURE Final 10/22/24-0642 [facility] COLONY DESCRIPTION: REPORT 1: 2+ GRAM NEGATIVE RODS IDENTIFICATION AND SENSITIVITY TO FOLLOW REPORT 2: 1+ GRAM POSITIVE COCCI IN CHAINS . IDENTIFICATION AND SENSITIVITY TO FOLLOW REPORT 3: NO FURTHER WORK-UP DONE ENTEROCOCCUS FAECALIS ESCHERICHIA COLI E FAECALIS E COLI M.I.C. RX M.I.C. RX --------- ---- --------- ---- AMPICILLIN <=2 S >16 R AZTREONAM <=4 S CEFAZOLIN <=2 S CEFTAZIDIME/AVIBACTAM <=8 S GENTAMICIN <=2 S LEVOFLOXACIN <=0.5 S VANCOMYCIN 1 S AMPICILLIN/SULBACTAM >16/8 R GENTAMICIN Synergy Screen <=500 S MEROPENEM <=1 S PENICILLIN 2 S PIPERACILLIN/TAZOBACTAM <=8 S TRIMETHOPRIM/SUFLAMETHOXAZOLE <=2/38 S ENTEROCOCCUS FAECALIS: POSITIVE COMBO 34 Gentamicin Synergy Screen S @ [facility] Test Performed at: [facility] [address], [place], [place] Medical Education Supervisor: Conor Harding D.O. END OF REPORT RUN DATE: 10/23/24 [facility] PAGE 1 RUN TIME: [address] [address] Department of Laboratories [facility] # [id number] Tying Machine Operator: Mehdi Perrin DO Specimen Report PATIENT: GENIE GONZALES ACCT: [id number] LOC: [facility] U: [id number] AGE/SX: 74/M ROOM: 303 RE10/18/[address]: RAJESH PUTNAM MD : 1950 BED: 1 DIS: STATUS: ADM IN TLOC: SPEC: [id number] JOE: 10/20/24 STATUS: COMP REQ: [id number] RECD: 10/20/[address]: ASIA CM MD SOURCE: LEG ENTR: 10/20/24-[address] [facility] [address]: JUNIE VIVAS MD SPDESC: LEFT RAJESH PUTNAM MD,GENIE ENCISO,KARTIK VENEGAS,ISABEL Rey PA-C ORDERED: GS, DAJUAN CULTURE, AEROBIC CULTURE COMMENTS: Has specimen been collected/obtained? Y Specimen Comment: LEFT LEG WOUND Has specimen been collected/obtained? Y Specimen Comment: LEFT LEG WOUND Has specimen been collected/obtained? Y Specimen Comment: LEFT LEG WOUND Has specimen been collected/obtained? Y Specimen Comment: LEFT LEG WOUND Has specimen been collected/obtained? Y Specimen Comment: LEFT LEG WOUND Has specimen been collected/obtained? Y Specimen Comment: LEFT LEG WOUND Has specimen been collected/obtained? Y Specimen Comment: LEFT LEG WOUND Has specimen been collected/obtained? Y Specimen Comment: LEFT LEG WOUND Has specimen been collected/obtained? Y Specimen Comment: LEFT LEG WOUND Has specimen been collected/obtained? Y Specimen Comment: LEFT LEG WOUND Has specimen been collected/obtained? Y Specimen Comment: LEFT LEG WOUND Has specimen been collected/obtained? Y Specimen Comment: LEFT LEG WOUND Has specimen been collected/obtained? Y Specimen Comment: LEFT LEG WOUND Has specimen been collected/obtained? Y Specimen Comment: LEFT LEG WOUND Has specimen been collected/obtained? Y Specimen Comment: LEFT LEG WOUND Has specimen been collected/obtained? Y Specimen Comment: LEFT LEG WOUND Has specimen been collected/obtained? Y Specimen Comment: LEFT LEG WOUND Has specimen been collected/obtained? Y Specimen Comment: LEFT LEG WOUND Has specimen been collected/obtained? Y Specimen Comment: LEFT LEG WOUND Has specimen been collected/obtained? Y Specimen Comment: LEFT LEG WOUND CONTINUED ON NEXT PAGE RUN DATE: 10/23/24 [facility] PAGE 2 RUN TIME: [address] [address] Department of [facility] CLIA # [id number] Tying Machine Operator: Mehdi Perrin DO Specimen Report SPEC: [id number] PATIENT: GENIE GONZALES [id number] (Continued) Has specimen been collected/obtained? Y Specimen Comment: LEFT LEG WOUND Has specimen been collected/obtained? Y Specimen Comment: LEFT LEG WOUND Has specimen been collected/obtained? Y Specimen Comment: LEFT LEG WOUND Procedure Result Derrell Date-Time ------- ----- GRAM STAIN ONLY Final 10/20/24-1451 GRAM STAIN: NO ORGANISMS SEEN 3+ WBC ANAEROBIC CULTURE Final 10/23/24-1328 [facility] COLONY DESCRIPTION: REPORT 1: NO ANAEROBES AT 16-23 HOURS; STUDIES TO CONTINUE REPORT 2: NO ANAEROBES AT 36-47 HOURS; STUDIES TO CONTINUE REPORT 3: NO ANAEROBES AT 60 TO 71 HOURS Test(s) performed by: [facility] [address] [place] [address] AEROBIC CULTURE Final 10/23/24-1020 [facility] COLONY DESCRIPTION: REPORT 1: 2+ GRAM NEGATIVE RODS IDENTIFICATION AND SENSITIVITY TO FOLLOW REPORT 2: 1+ GRAM POSITIVE COCCI IN CHAINS . IDENTIFICATION AND SENSITIVITY TO FOLLOW REPORT 3: NO FURTHER WORK-UP DONE ENTEROCOCCUS FAECALIS ENTEROBACTER HORMAECHEI ESCHERICHIA COLI PROTEUS MIRABILIS CONTINUED ON NEXT PAGE RUN DATE: 10/23/24 [facility] PAGE 3 RUN TIME: 9227 [address] [address], [place] [address] Department of Laboratories [facility] # [id number] Tying Machine Operator: Mehdi Perrin DO Specimen Report SPEC: [id number] PATIENT: GENIE GONZALES [id number] (Continued) Procedure Result Derrell Date-Time AEROBIC CULTURE Final (continued) 10/23/24-0 E FAECALIS E.ANDREAECH M.I.C. RX M.I.C. RX --------- ---- --------- ---- AMPICILLIN <=2 S AZTREONAM <=4 S CEFAZOLIN CEFTAZIDIME <=1 S CEFTAZIDIME/AVIBACTAM CEFTRIAXONE GENTAMICIN <=2 S LEVOFLOXACIN <=0.5 S VANCOMYCIN 1 S TOBRAMYCIN AMPICILLIN/SULBACTAM GENTAMICIN Synergy Screen >500 R MEROPENEM <=1 S PENICILLIN 2 S PIPERACILLIN/TAZOBACTAM <=8 S STREPTOMYCIN Synergy Screen <=1000 S TRIMETHOPRIM/SUFLAMETHOXAZOLE >2/38 R E COLI PMIRABILIS M.I.C. RX M.I.C. RX --------- ---- --------- ---- AMPICILLIN >16 R <=8 S AZTREONAM 16 R <=4 S CEFAZOLIN >16 R <=2 S CEFTAZIDIME <=1 S CEFTAZIDIME/AVIBACTAM <=8 S <=8 S CEFTRIAXONE >2 R GENTAMICIN >8 R <=2 S LEVOFLOXACIN <=0.5 S <=0.5 S VANCOMYCIN TOBRAMYCIN 8 R AMPICILLIN/SULBACTAM >16/8 R GENTAMICIN Synergy Screen MEROPENEM <=1 S <=1 S PENICILLIN PIPERACILLIN/TAZOBACTAM <=8 S <=8 S STREPTOMYCIN Synergy Screen TRIMETHOPRIM/SUFLAMETHOXAZOLE <=2/38 S <=2/38 S ENTEROCOCCUS FAECALIS: POSITIVE COMBO 34 Streptomycin Synergy Screen S CONTINUED ON NEXT PAGE RUN DATE: 10/23/24 [facility] PAGE 4 RUN TIME: [address] [address] Department of Laboratories CLIA # [id number] Tying Machine Operator: Mehdi Perrin DO Specimen Report SPEC: [id number] PATIENT: GENIE GONZALES [id number] (Continued) Procedure Result Derrell Date-Time AEROBIC CULTURE Final (continued) Gentamicin Synergy Screen R @ [facility] Test Performed at: [facility] [address], [place], [place] Medical Education Supervisor: Conor Harding D.O. Assessment/Plan: ASSESSMENT: Chronic left leg ulcer with suspected pyoderma gangrenosum, s/p debridement, skin biopsy and wound VAC placement. Left lower extremity cellulitis. 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 Gomez, infectious disease : Dr. Vivas, hematology : Dr. Enciso, Nadia radiology : Dr. Castro FOLLOW UP APPOINTMENTS : Patient to follow-up with the PCP within 3-5 days upon discharge. Follow up with general surgeon , wound management Dr. Gomez, infectious Disease and Dr. Enciso within 1-2 weeks after the discharge. PROCEDURES : Report attached to summary : Left leg ulcer debridement IMAGING (s) : Report attached to summary : Chest x-ray, abdomen CT, aorta with/runoff CTA, venous Doppler study, arterial ultrasound and tibia/fibula x- ray MICROBIOLOGY : Report attached to summary. Wound and blood culture ACTIVITY : ab shani HOME MEDICATIONS : Continue NEW MEDICATIONS : IV vancomycin and IV Zosyn TEACHING : We reinforced the importance of medication compliance and with follow up appointments. Advised patient to follow-up with the PCP within 3-5 days upon discharge. Follow up with general surgeon , wound management Dr. Gomez, infectious Disease and Dr. Enciso within 1-2 weeks after the discharge. Emergency instructions : The patient was instructed to present to the nearest Emergency Department or call 911 should their symptoms return or worsen. Home Medications: Reported Medications Acetaminophen with Codeine (Tylenol with Codeine #2) 300 Mg-15 Mg Tab, 2 TAB PO Q6HPRN, TAB 10/19/24 Multivitamins,Therapeutic (Multivitamin Tablet) 400 Mcg Tab, 1 TAB PO DAILY for 30 Days, #30 TAB 0 Refills 10/18/24 Insulin Glargine,Hum.rec.anlog (Lantus) 100 Unit/Ml Inj, 40 UNITS SQ HS, ML 10/18/24 Clopidogrel Bisulfate (Clopidogrel) 75 Mg Tablet, 75 MG PO DAILY, TAB 10/18/24 Losartan Potassium (Losartan Potassium) 25 Mg Tablet, 25 MG PO DAILY, TAB 10/18/24 Pravastatin Sodium (Pravastatin Sodium) 20 Mg Tablet, 20 MG PO DAILY, TAB 10/18/24 Dapagliflozin Propanediol (Farxiga) 10 Mg Tablet, 10 MG PO DAILY, TAB 10/18/24 Hydrochlorothiazide (Hydrochlorothiazide) 12.5 Mg Tablet, 12.5 MG PO DAILY, TAB 10/18/24 Time spent arranging discharge: 31-60 minutes ATTESTATION BY PHYSICIAN I have seen and examined the patient. I reviewed the documentation, medical decision making, and treatment plan as noted by the resident provider above. I agree with the findings and plan of care. Rohit Rob MD, KRUPALI P MD October 28, 2024 12:33
--- NOTE | 2024-10-28 15:45 | NUR ---
WOUND CARE WOUND VAC REMOVED AND WET-TO-DRY DRESSING PLACED FOR TRANSFER TO [facility]. PATIENT MEDICATED 30 MINS PRIOR TO WOUND CARE. MINIMAL SANGUANOUS DRAINAGE. PATIENT TOLERATED WELL.
--- NOTE | 2024-10-28 15:54 | NUR ---
Attempted to call report to [facility] [place] AT [phone] at [phone], no answer.
[2024-10-28 16:56] VITALS: BP 128/70; PULSE 70; RESP 18; TEMP 98
[2024-10-28] MEDS: INSULIN LISpro 100 UNIT/ML 3ML SQ SCH (17:00)
--- NOTE | 2024-10-28 17:44 | PN ---
INFECTIOUS DISEASE PROGRESS NOTE Date of Service: October 28, 2024 SUBJECTIVE: This is a 74-year-old male patient who was seen and examined at bedside in room 303. Patient is awake, alert and oriented x3. Patient is s/p debridement and skin biopsy of left leg wound and wound VAC placement on 10/20/2024. visiting at bedside. During rounding today patient is still pending insurance approval to [facility]. Will continue on vancomycin and Zosyn IV as well as on IV steroids. PHYSICAL EXAM EYES: Anicteric. Pupils equal and reactive. HENT: No oral thrush seen, moist Oral mucosa NECK: Supple, no JVD or thyromegaly. LUNGS: Good air entry. No rales, no rhonchi. CARDIOVASCULAR: S1, S2 regular. No murmur heard. ABDOMEN: Soft, non tender, bowel sounds present, no organomegaly. CENTRAL NERVOUS SYSTEM: Awake, alert, oriented x 3. SKIN: No rashes, no swelling. LYMPHATICS: No peripheral lymphadenopathy. MUSCULOSKELETAL: No joint swelling, erythema or tenderness. EXTREMITIES: No cyanosis or clubbing. Chronic left leg ulcer with possible pyoderma gangrenosum BACK: No deformity, no pressure ulcer. GENITOURINARY: No dysuria or hematuria.. Vital Sign (Last 12 Hours) 10/28/24 10/28/24 10/28/24 08:08 11:35 16:56 Temp 97.9 98.1 98.1 Pulse 65 73 70 Resp 17 18 18 B/P (MAP) 143/73 132/72 128/70 Pulse Ox 94 97 97 O2 Delivery Room Air Room Air Room Air Intake & Output (last 24hrs) 10/27/24 10/27/24 10/28/24 15:00 23:00 07:00 Intake Total 1096 ml 576 ml 390.0 ml Output Total 300 ml 500 ml 600 ml Balance 796 ml 76 ml -210.0 ml LABS: Laboratory: Test 10/28/24 16:05 10/28/24 08:12 10/28/24 04:50 Range/Units Whole Blood Glucose 189 H 70-110 MG/DL Vancomycin Level Trough 10.9 10.0-20.0 UG/ML White Blood Count 13.0 H 4.8-10.8 K/uL Red Blood Count 4.41 L 4.50-6.20 MIL/uL Hemoglobin 14.0 14.0-18.0 g/dL Hematocrit 39.9 L 42-54 % Mean Corpuscular Volume 90.5 79-99 fL Mean Corpuscular Hemoglobin 31.7 27.0-33.0 pg Mean Corpuscular Hemoglobin Concent 35.1 32.0-36.0 g/dL Red Cell Distribution Width 12.9 11.0-15.5 % Platelet Count 330 130-400 K/uL Mean Platelet Volume 10.4 7.5-10.5 fL Immature Granulocyte % (Auto) 0.5 0-1 % Neutrophils (%) (Auto) 86.3 H 40.0-77.0 % Lymphocytes (%) (Auto) 9.6 L 21.0-51.0 % Monocytes (%) (Auto) 3.5 3.0-13.0 % Eosinophils (%) (Auto) 0.0 0.0-8.0 % Basophils (%) (Auto) 0.1 0.0-5.0 % Neutrophils # (Auto) 11.2 H 1.8-7.7 K/uL Lymphocytes # (Auto) 1.3 1.0-4.8 K/uL Monocytes # (Auto) 0.5 0.1-1.0 K/uL Eosinophils # (Auto) 0.00 0.00-0.70 K/uL Basophils # (Auto) 0.01 0.00-0.20 K/uL Absolute Immature Granulocyte (auto 0.07 0-1 K/uL Nucleated Red Blood Cells 0.0 0.0-0.19 % White Cell Morphology Comment CONSISTENT W/DIFF Platelet Morphology PLT CLUMPS PRESENT Sodium Level 138 136-145 mmol/L Potassium Level 4.1 3.5-5.1 mmol/L Chloride Level 104 101-111 mmol/L Carbon Dioxide Level 26 21-32 mmol/L Blood Urea Nitrogen 19 H 7-18 mg/dL Creatinine 0.8 0.5-1.3 mg/dL Glomerular Filtration Rate Calc 93 >90 mL/min Random Glucose 228 H 70-105 mg/dL Total Calcium 8.1 L 8.5-10.1 mg/dL Magnesium Level 2.10 1.80-2.40 mg/dL ASSESSMENT: Chronic left leg ulcer with possible pyoderma gangrenosum, s/p debridement, skin biopsy and wound VAC placement on 10/20/2024. Left leg with polymicrobial infection. Left lower extremity cellulitis. Leukocytosis, possibly due to the IV steroids.. Diabetes mellitus. Peripheral vascular disease. PLAN: Continue Zosyn. Continue vancomycin per pharmacy protocol. Continue IV dexamethasone.. Continue antidiabetics. Continue wound care as recommended by General surgery, currently on wound VAC therapy. Continue pain management. Continue GI prophylaxis. Pending insurance approval to [facility]. This case was reviewed and discussed with my supervising physician and the above assessment and plan was formulated and agreed upon. ATTESTATION BY PHYSICIAN I have seen and examined the patient. I reviewed the documentation, medical decision making, and treatment plan as noted by the mid-level provider above. I agree with the findings and plan of care. JUNIE KNOWLES MD, MIRTA L [facility] October 28, 2024 17:44
--- NOTE | 2024-10-28 19:43 | NUR ---
D/C EMS IN TO TRANSPORT PT TO [facility]. DISCHARGE PAPERS AND PACKET GIVEN TO EMT. D/C PT IN STABLE CONDITION. FAMILY WITH PT.
[2024-10-28] MEDS ORDERED: INSULIN GLARgine 100 UNITS/ML 10 ML VIAL SQ SCH (21:00)
== END 2024-10-28 19:43 | DRG 571 ==
LOC: EDH 15:51 → EDHIP 19:32 → 3AH 22:10
PROVIDERS: ADMIT Internal Medicine; ATTEND Internal Medicine
PROC: 0JBP0ZZ Excision of Left Lower Leg Subcutaneous Tissue and Fascia, Open Approach (ICD-10-PCS; principal; 2024-10-20 08:30)
PROC: 02HV33Z Insertion of Infusion Device into Superior Vena Cava, Percutaneous Approach (ICD-10-PCS; 2024-10-26)
DX: L03.116 Cellulitis of left lower limb (principal); L88 Pyoderma gangrenosum; L97.228 Non-pressure chronic ulcer of left calf with other specified severity; L97.918 Non-pressure chronic ulcer of unspecified part of right lower leg with other specified severity; E11.51 Type 2 diabetes mellitus with diabetic peripheral angiopathy without gangrene; E11.622 Type 2 diabetes mellitus with other skin ulcer; E11.65 Type 2 diabetes mellitus with hyperglycemia; I10 Essential (primary) hypertension; E66.9 Obesity, unspecified; E78.00 Pure hypercholesterolemia, unspecified; K21.9 Gastro-esophageal reflux disease without esophagitis; Z79.02 Long term (current) use of antithrombotics/antiplatelets; Z79.4 Long term (current) use of insulin; Z79.82 Long term (current) use of aspirin; Z79.899 Other long term (current) drug therapy; Z83.3 Family history of diabetes mellitus; Z82.49 Family history of ischemic heart disease and other diseases of the circulatory system; Z68.29 Body mass index [BMI] 29.0-29.9, adult
CPT/HCPCS: 36415; 71045; 73590; 74150; 75635; 80048; 80053; 80061; 80074; 80202; 82947; 82948; 83036; 83605; 83735; 84145; 85025; 85610; 85651; 86140; 87040; 87070; 87076; 87086; 87186; 87205; 88304; 88305; 93926; 93971; 96365; 96375; 99285; G0378; J0690; J1100; J1171; J1650; J1815; J2175; J2250; J2270; J2405; J2543; J2704; J2710; J3010; J3370; J3490; Q9967; A4216; A4222; A4223; A4930; A6210; A6260; A9272; J0665